=== PATIENT | male | born 1950 | race Caucasian/White ===

== ENCOUNTER 2022-06-14 10:13 | Outpatient (CLI) | payer OTHER, SELFPAY ==
--- OUTSIDE RECORDS SUMMARY | 2022-06-14 08:36 | XMS_ITS | Clinical Summary ---
:1950 Author Organization [facility] Address [address] [place] [address] Care Team Providers Name Role Phone Juan Jose Adams MD Unavailable [phone] Clinic, [facility] Primary Care Provide r Allergies No known active allergies Medications Medication Sig Dispensed Refills Start Date End Date Status Rivaroxaban (XARELTO Take 20 mg by 0 Active PO) mouth every evening triamcinolone (KENALOG) Apply topically 2 0 Active 0.1 % cream times daily atorvastatin (LIPITOR) Take 1 tablet (20 90 tablet 3 2 Active 20 MG mg) by mouth At tabletIndications: Bedtime Hyperlipidemia LDL goal <70 amoxicillin (AMOXIL) (TAKE 4 CAPSULES 4 capsule 3 09/08/2021 Active 500 MG (2000MG) BY MOUT capsuleIndications: 1HR PRIOR TO Prophylactic antibiotic DENTAL PROCEDURE.) Active Problems Problem Noted Date Atrial fibrillation 05/11/2018 Carotid stenosis, left 01/28/2017 Family History Medical History Relation Comments Hypertension Father Breast Cancer Mother Colon Cancer Mother Cerebrovascular Disease Paternal Grandfather Other Cancer Paternal Grandmother Relation Status Comments Father Mother Paternal Grandfather Paternal Grandmother Social History Tobacco Use Types Packs/Day Years Used Date Smoking Tobacco: Former Cigarettes Quit : 08/08/1990 Pipe Smokeless Tobacco: Never Tobacco Cessation: Counseling Given: Yes Alcohol Use Standard Drinks/Week Comments Yes 0 (1 standard drink = 0.6 oz pure alcoho l) 5 / week Sex Assigned at Date Recorded 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 Last Filed Vital Signs Vital Sign Reading Time Taken Comments Blood Pressure 126/64 09/01/2021 9:31 AM WEATHERSEAL TECHNICIAN Pulse 67 09/01/2021 9:31 AM WEATHERSEAL TECHNICIAN Temperature 36.7 ??C (98.1 ??F) 02/16/2017 9:21 AM CDT Respiratory Rate 16 09/01/2021 9:31 AM WEATHERSEAL TECHNICIAN Oxygen Saturation 95% 09/01/2021 9:31 AM WEATHERSEAL TECHNICIAN Inhaled Oxygen Concentration - - Weight 122.5 kg (270 lb) 09/01/2021 9:31 AM WEATHERSEAL TECHNICIAN Height 188 cm (6' 2) 09/01/2021 9:31 AM WEATHERSEAL TECHNICIAN Body Mass Index 34.67 09/01/2021 9:31 AM WEATHERSEAL TECHNICIAN Plan of Treatment Health Maintenance Due Date Last Done Comments ADVANCE CARE PLANNING 1950 ANNUAL REVIEW OF HM ORDERS 1948 CT COLONOGRAPHY 1950 FIT-DNA (Cologuard) 1950 FIT 1950 FLEX SIG 1950 HEPATITIS B IMMUNIZATION (1 1950 of 3 - 3-dose series) HEPATITIS C SCREENING 1966 AORTIC ANEURYSM SCREENING 2013 (SYSTEM ASSIGNED) FALL RISK ASSESSMENT 2013 MEDICARE ANNUAL WELLNESS 2013 10/14/2006, 04/16/2005, VISIT 10/01/1997 COVID-19 Vaccine (3 - 12/19/2020 10/24/2020, 10/03/2020 Booster for Pfizer series) PHQ-2 (once per calendar 08/08/2021 year) LIPID 01/28/2022 01/28/2017 INFLUENZA VACCINE (#1) 2022 07/09/2021, 07/09/2021, 06/30/2020, Additional history exists COLONOSCOPY 11/09/2027 11/08/2017 COLORECTAL CANCER SCREENING 11/09/2027 DTAP/TDAP/TD IMMUNIZATION 07/09/2031 07/09/2021, 11/20/2010 , (4 - Td or Tdap) 04/16/2005, Additional history exists IPV IMMUNIZATION Aged Out 08/19/1998 No longer eligi ble based on patient 's age to complete this topic Pneumococcal Vaccine: 65+ Completed 08/08/2017, 05/14/2015 , Years 10/09/2014 ZOSTER IMMUNIZATION Completed 04/13/2019, 02/02/2019, 01/19/2013 MENINGITIS IMMUNIZATION Aged Out No longe r eligible based on patient 's age to complete this topic Medical Devices Implanted Type Area Welder Helper Device Shelf Model / Identifier Expiration Serial / Lot Date Graft Hemashield [id number] Graft Left: [employer] 11/05/2020 [id number] / Implanted: Qty: 1 on 01/28/2017 by Wayne Carlson MD at [facility] [id number] / [id number] Insurance Payer Benefit Plan / Subscriber ID Effective Phone Address T ype Group Dates [facility] [id number] 2018-Pres [phone] [address] O MEDICARE ADVANTAGE ent [address] [place] [address] none (Work) [phone] Care Teams Analog Ic Design Engineer Relationship Specialty Start Date End Date Clinic, [facility] PCP - General 08/19/[address] [address] Juan Jose Adams, Assigned Heart and Vascular 09/07/20 Provider [address] [place] [address]
--- OUTSIDE RECORDS SUMMARY | 2022-06-14 08:36 | XMS_ITS | Encounter Summary ---
:1950 Author Organization [facility] Address [address] [place] [address]. [place] [address] Care Team Providers Name Role Phone Juan Jose Adams MD Unavailable [phone] Clinic, [facility] Primary Care Provide r Reason for Visit Reason Comments Medication Refill amoxicillin (AMOXIL) 500 MG capsule Encounter Details Date Type Department Care Team Description 09/08/2021 Refill [facility] Juan Jose Adams [facility] cation Refill Vascular Clinic Mauricio Raymond MD (amoxicillin (AMOXIL) 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 documented as of this encounter Miscellaneous Notes Telephone Encounter - Najma Singletary RN - 09/08/2021 10:22 AM CST amoxicillin (AMOXIL) 500 MG capsule Last Written Prescription Date: 06/09/20 Last Fill Quantity: 4, # refills: 3 Last office visit: 09/01/21 Unable to fill per [facility] protocol. Medication and pharmacy loaded. Najma Singletary RN BSN [facility] [phone] ULTING SOLUTION DIRECTOR documented in this encounter Plan of Treatment Not on filedocumented as of this encounter Visit Diagnoses Diagnosis Prophylactic antibiotic Encounter for long-term (current) use of antibiotics documented in this encounter Care Teams Digital Account Director Relationship Specialty Start Date End Date Clinic, [facility] PCP - General 08/19/[address] [address] Juan Jose Adams, Assigned Heart and Vascular 09/07/20 Provider [address] [place] [address] documented as of this encounter
--- OUTSIDE RECORDS SUMMARY | 2022-06-14 08:37 | XMS_ITS | Encounter Summary ---
:1950 Author Organization [facility] Address [address] [place] [address]. [place] [address] Care Team Providers Name Role Phone Phil Reyesolas Doris Primary Care Provider Reason for Referral Diagnostic Imaging Ultrasound (Routine) - Closed Specialty Diagnoses / Procedures Referred By Contact Refer red To Contact Radiology. Diagnoses Carotid artery stenosis History of carotid endarterectomy Wayne Bennett, Ultrasound Procedures US Carotid Bilateral [address] [place] [phone] Fax: Referral ID Status Reason Start Date Expiration Date Visits Requ ested Visits Authorized [id number] Closed 03/08/2019 03/07/2020 1 1 Encounter Details Date Type Department Care Team Description 03/08/2019 [facility] Wayne Bennett Carotid artery stenosis (Primary Dx); Vascular Clinic Mauricio Paiz MD History of carotid endarterectomy 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 1. Less than 50% diameter stenosis of th e right ICA relative to the distal ICA diameter, unchanged. 2. 50-69% diameter stenosis of the left ICA relative to the distal ICA diameter, unchanged. SARA SMALL, Narrative 06/01/2019 10:57 AM CDT BILATERAL CAROTID ULTRASOUND ?? 05/31/2019 12:49 PM HISTORY: ??History of left carotid endar terectomy on 01/28/2017. Carotid artery stenosis. COMPARISON: 05/11/2018 RIGHT CAROTID FINDINGS: ??Minimal plaque at the carotid bulb. Right ICA PSV: ??110 ??cm/sec. Right ICA EDV: ??24 cm/sec. Right ICA/CCA PSV Ratio: ??0.8 ?? These indicate less than 50% diameter st enosis of the right ICA. ?? Right Vertebral: Antegrade flow. Right ECA: Antegrade flow. LEFT CAROTID FINDINGS: ??Plaque in the i nternal carotid artery. Left ICA PSV: ??167 ??cm/sec. Left ICA EDV: ??26 cm/sec. Left ICA/CCA PSV Ratio: ??0.8 ?? These indicate 50-69% diameter stenosis of the left ICA. ?? Left Vertebral: Antegrade flow. Left ECA: Antegrade flow. Causes of Decreased Accuracy: ?? None. Procedure Note Sara Small DO - 2018 BILATERAL CAROTID ULTRASOUND 05/31/2019 12:49 PM HISTORY: History of left carotid endarte rectomy on 01/28/2017. Carotid artery stenosis. COMPARISON: 05/11/2018 RIGHT CAROTID FINDINGS: Minimal plaque a t the carotid bulb. Right ICA PSV: 110 cm/sec. Right ICA EDV: 24 cm/sec. Right ICA/CCA PSV Ratio: 0.8 These indicate less than 50% diameter st enosis of the right ICA. Right Vertebral: Antegrade flow. Right ECA: Antegrade flow. LEFT CAROTID FINDINGS: Plaque in the int ernal carotid artery. Left ICA PSV: 167 cm/sec. Left ICA EDV: 26 cm/sec. Left ICA/CCA PSV Ratio: 0.8 These indicate 50-69% diameter stenosis of the left ICA. Left Vertebral: Antegrade flow. Left ECA: Antegrade flow. Causes of Decreased Accuracy: None. IMPRESSION: 1. Less than 50% diameter stenosis of th e right ICA relative to the distal ICA diameter, unchanged. 2. 50-69% diameter stenosis of the left ICA relative to the distal ICA diameter, unchanged. SARA SMALL DO Wayne Bennett MD G ORDERABLES documented in this encounter Visit Diagnoses Diagnosis Carotid artery stenosis - Primary Occlusion and stenosis of carotid artery without mention of cerebral infarction History of carotid endarterectomy Other postprocedural status Carotid artery stenosis Occlusion and stenosis of carotid artery without mention of cerebral infarction History of carotid endarterectomy Other postprocedural status documented in this encounter Care Teams Card Assembler Relationship Specialty Start Date End Date Supa Reyes PCP - General Family Practice 10/21/16 08/18/[address] [address] documented as of this encounter
--- OUTSIDE RECORDS SUMMARY | 2022-06-14 08:37 | XMS_ITS | Encounter Summary ---
:1950 Author Organization [facility] Address [address] [place] [address]. [place] [address] Care Team Providers Name Role Phone EricSupa issa Doris Primary Care Provider Reason for Referral Diagnostic Imaging Ultrasound - Closed Specialty Diagnoses / Procedures Referred By Contact Refer red To Contact Radiology. Diagnoses Carotid artery stenosis Wyane Bennett MD Rh Ultrasound Procedures US Carotid Bilateral [address] [place] [address] [place] [address] Phone: Fax: Referral ID Status Reason Start Date Expiration Date Visits Requ ested Visits Authorized [id number] Closed 05/08/2018 05/08/2019 1 1 RNED GOODS REPAIRER Encounter Details Date Type Department Care Team Description 08/11/2017 Orders Only [facility] Wayne Bennett Carotid artery Vascular Clinic Mauricio Paiz MD stenosis (Primary Dx) 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 1. Less than 50% stenosis of the right i nternal carotid artery relative to the normal diameter internal carotid artery. 2. 50-69% stenosis of the left internal carotid artery relative to the normal diameter internal carotid artery. 3. Postoperative changes from left carot id endarterectomy. Degree of stenosis measured relative to the diameter of the normal internal carotid artery per NASCET or NA SCET type criteria <50% stenosis -ICA PSV <125 cm/sec and plaque or intim al thickening is visible sonographically. -ICA/CCA PSV ratio <2.0 and ICA EDV < 40 cm/sec 50-69% stenosis -ICA PSV 125-230 cm/sec and plaque visib le sonographically -ICA/CCA PSC ratio 2.0-4.0 and ICA EDV o f 40-100 cm/sec 70% or greater stenosis -ICA PSV is >230 cm/sec and visible plaq ue and luminal narrowing are seen at grayscale and color doppler -ICA/CCA PSV ratio >4 and ICA EDV >100 c m/sec TITUS THOMAS MD Narrative 05/11/2018 1:25 PM CDT PROCEDURE: Bilateral carotid doppler ultrasound DATE OF PROCEDURE: 05/11/2018 1:11 PM CLINICAL HISTORY/INDICATION: ?? 68-year-old male status post left caroti d endarterectomy presents for follow-up. COMPARISON: 08/10/2017, 10/27/2016 TECHNIQUE: Grayscale, color-flow and spectral wavef orm analysis with velocities were performed of the bilateral carotid arteries. FINDINGS: Right: Plaque: Minimal plaque about the bifurca tion. Right ICA Proximal PSV/EDV: ??61/11 ??cm /sec. Right ICA Mid PSV/EDV: ??71/19 cm/sec. Right ICA Dist PSV/EDV: ??83/26 cm/sec. Right ICA/CCA PSV Ratio: ??0.9 ?? These indicate less than 50% diameter st enosis of the right ICA. ?? Right Vertebral: antegrade flow Right ECA: antegrade flow Left: Plaque: Soft plaque versus intimal hyper plasia within the bulb and proximal internal carotid artery Left ICA Proximal PSV/EDV: 209/28 ??cm/s ec. Left ICA Mid PSV/EDV: ??75/18 cm/sec. Left ICA Dist PSV/EDV: 98/24 cm/sec. Left ICA/CCA PSV Ratio: ??1.9 ?? These indicate 50-69% diameter stenosis of the left ICA. ?? Left Vertebral: antegrade flow Left ECA: antegrade flow Procedure Note Titus Thomas MD - 05/11/2018For matting of this note might be different from the original. PROCEDURE: Bilateral carotid doppler ultrasound DATE OF PROCEDURE: 05/11/2018 1:11 PM CLINICAL HISTORY/INDICATION: 68-year-old male status post left caroti d endarterectomy presents for follow-up. COMPARISON: 08/10/2017, 10/27/2016 TECHNIQUE: Grayscale, color-flow and spectral wavef orm analysis with velocities were performed of the bilateral carotid arteries. FINDINGS: Right: Plaque: Minimal plaque about the bifurca tion. Right ICA Proximal PSV/EDV: 61/11 cm/sec . Right ICA Mid PSV/EDV: 71/19 cm/sec. Right ICA Dist PSV/EDV: 83/26 cm/sec. Right ICA/CCA PSV Ratio: 0.9 These indicate less than 50% diameter st enosis of the right ICA. Right Vertebral: antegrade flow Right ECA: antegrade flow Left: Plaque: Soft plaque versus intimal hyper plasia within the bulb and proximal internal carotid artery Left ICA Proximal PSV/EDV: 209/28 cm/sec . Left ICA Mid PSV/EDV: 75/18 cm/sec. Left ICA Dist PSV/EDV: 98/24 cm/sec. Left ICA/CCA PSV Ratio: 1.9 These indicate 50-69% diameter stenosis of the left ICA. Left Vertebral: antegrade flow Left ECA: antegrade flow IMPRESSION: 1. Less than 50% stenosis of the right i nternal carotid artery relative to the normal diameter internal carotid artery. 2. 50-69% stenosis of the left internal carotid artery relative to the normal diameter internal carotid artery. 3. Postoperative changes from left carot id endarterectomy. Degree of stenosis measured relative to the diameter of the normal internal carotid artery per NASCET or NA SCET type criteria <50% stenosis -ICA PSV <125 cm/sec and plaque or intim al thickening is visible sonographically. -ICA/CCA PSV ratio <2.0 and ICA EDV < 40 cm/sec 50-69% stenosis -ICA PSV 125-230 cm/sec and plaque visib le sonographically -ICA/CCA PSC ratio 2.0-4.0 and ICA EDV o f 40-100 cm/sec 70% or greater stenosis -ICA PSV is >230 cm/sec and visible plaq ue and luminal narrowing are seen at grayscale and color doppler -ICA/CCA PSV ratio >4 and ICA EDV >100 c m/sec TITUS THOMAS MD Wayne Bennett MD IMG US ORDERABLES documented in this encounter Visit Diagnoses Diagnosis Carotid artery stenosis - Primary Occlusion and stenosis of carotid artery without mention of cerebral infarction Carotid artery stenosis Occlusion and stenosis of carotid artery without mention of cerebral infarction documented in this encounter Care Teams Professor Of Physics Relationship Specialty Start Date End Date Supa Reyes PCP - General Family Practice 10/21/16 08/18/21 [place] [id number] documented as of this encounter
--- OUTSIDE RECORDS SUMMARY | 2022-06-14 08:37 | XMS_ITS | Encounter Summary ---
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 documented as of this encounter Plan of Treatment Not on filedocumented as of this encounter Visit Diagnoses Not on filedocumented in this encounter Care Teams Windows Consultant Relationship Specialty Start Date End Date Supa Reyes PCP - General Family Practice 10/21/16 08/18/[address] [address] Wayne Bennett, Assigned Heart and 05/30/20 09/06/20 Vascular Provider [address] [place] [address] documented as of this encounter
--- OUTSIDE RECORDS SUMMARY | 2022-06-14 08:37 | XMS_ITS | Encounter Summary ---
:1950 Author Organization [facility] Address [address] [place] [address]. [place] [address] Care Team Providers Name Role Phone Supa Reyes Primary Care Provider Reason for Visit Reason Comments RECHECK bilat carotid ---- 9 month F /U Encounter Details Date Type Department Care Team Description 05/11/2018 Office Visit [facility] Wayne Bennett Carotid stenosis, asymptomatic, left (Primary Dx); Surgery Clinic MD [place]cho Persistent atrial fibrillation (H) 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 documented as of this encounter Last Filed Vital Signs Vital Sign Reading Time Taken Comments Blood Pressure 124/88 05/11/2018 1:08 PM CDT Pulse 59 05/11/2018 1:08 PM CDT Temperature - - Respiratory Rate 16 05/11/2018 1:08 PM CDT Oxygen Saturation 98% 05/11/2018 1:08 PM CDT Inhaled Oxygen Concentration - - Weight 117.5 kg (259 lb) 05/11/2018 1:08 PM CDT Height 188 cm (6' 2) 05/11/2018 1:08 PM CDT Body Mass Index 33.25 05/11/2018 1:08 PM CDT documented in this encounter Progress Notes Wayne Bennett MD - 05/11/2018 1:30 PM CDT 68 y/o male s/p left carotid endarterectomy 01/22--no symptoms since last check. Motor/sensory intactCr. N 2-12 intact Carotids 11/09 no bruits Ultrasound shows 50% stenosis on the left peak velocity 203cm/sec. No indication for intervention at this point F/U ultrasound in one year. Discussed. documented in this encounter Plan of Treatment Not on filedocumented as of this encounter Visit Diagnoses Diagnosis Carotid stenosis, asymptomatic, left - P rimary Persistent atrial fibrillation (H) Atrial fibrillation documented in this encounter Care Teams Fish Agent Relationship Specialty Start Date End Date Supa Reyes PCP - General Family Practice 10/21/16 08/18/21 [place] [address] documented as of this encounter
--- OUTSIDE RECORDS SUMMARY | 2022-06-14 08:37 | XMS_ITS | Encounter Summary ---
:1950 Author Organization [facility] Address [address] [place] [address]. [place] [address] Care Team Providers Name Role Phone Supa Reyes Primary Care Provider Encounter Details Date Type Department Care Team Description 04/18/2019 Orders Only [facility] Wayne Bennett ctic antibiotic Vascular Clinic Mauricio Paiz MD (Primary Dx) 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
--- OUTSIDE RECORDS SUMMARY | 2022-06-14 08:37 | XMS_ITS | Encounter Summary ---
:1950 Author Organization [facility] Address [address] [place] [address]. [place] [address] Care Team Providers Name Role Phone Supa Reyes Primary Care Provider Reason for Visit Reason Onset Date Comments Medication Request 03/18/2017 Encounter Details Date Type Department Care Team Description 03/18/2017 Telephone [facility] Wayne Bennett on Request Vascular Clinic Mauricio Paiz MD 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 Amoxicillin was ordered per protocol. Pt was notified. Myriam Pedroza RN, BSN. documented in this encounter Plan of Treatment Not on filedocumented as of this encounter Visit Diagnoses Diagnosis History of carotid endarterectomy - Prim zachariah Other postprocedural status documented in this encounter Care Teams Nitrator Operator Relationship Specialty Start Date End Date Supa Reyes PCP - General Family Practice 10/21/16 08/18/21 [place] [id number] documented as of this encounter
--- OUTSIDE RECORDS SUMMARY | 2022-06-14 08:37 | XMS_ITS | Encounter Summary ---
:1950 Author Organization [facility] Address [address] [place] [address]. [place] [address] Care Team Providers Name Role Phone Supa Reyse Primary Care Provider Reason for Visit Reason Onset Date Comments Medication Request 03/09/2017 Encounter Details Date Type Department Care Team Description 03/09/2017 Telephone [facility] Wayne Bennett on Request Vascular Clinic Mauricio Paiz MD 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 Amoxicillin was ordered per facility protocol. Pt's was notified. Myriam Pedroza RN, BSN. documented in this encounter Plan of Treatment Not on filedocumented as of this encounter Visit Diagnoses Diagnosis History of carotid endarterectomy - Prim zachariah Other postprocedural status documented in this encounter Care Teams Solderer Assembly Repair Relationship Specialty Start Date End Date Supa Reyes PCP - General Family Practice 10/21/16 08/18/21 [place] [id number] documented as of this encounter
--- OUTSIDE RECORDS SUMMARY | 2022-06-14 08:37 | XMS_ITS | Encounter Summary ---
:1950 Author Organization [facility] Address [address] [place] [address] Care Team Providers Name Role Phone Eric, Supa Doris Primary Care Provider Wayne Bennett MD Unavailable Juan Jose Adams MD Unavailable [phone] Reason for Referral Consultation (Routine) - Closed Specialty Diagnoses / Procedures Referred By Contact Refer red To Contact Diagnoses History of carotid endarterectomy Juan Jose Adams MD [address] [place] [address] Referral ID Status Reason Start Date Expiration Date Visits Requ ested Visits Authorized [id number] Closed 04/01/2021 04/01/2022 1 1 Diagnostic Imaging Ultrasound (Routine) - Closed Specialty Diagnoses / Procedures Referred By Contact Refer red To Contact Diagnoses History of carotid endarterectomy Juan Jose Adams, Procedures US Carotid Bilateral US Carotid Bilateral [address] [place] [address] Referral ID Status Reason Start Date Expiration Date Visits Requ ested Visits Authorized [id number] Closed 09/02/2020 09/02/2021 1 1 Reason for Visit Reason Comments Consult Carotid stenosis (Routine) - Closed Specialty Diagnoses / Procedures Referred By Contact Refer red To Contact Diagnoses History of carotid endarterectomy Stenosis of carotid artery, unspecified laterality Vascular Center [address] [place] [address] Referral ID Status Reason Start Date Expiration Date Visits Requ ested Visits Authorized [id number] Closed 08/05/2020 08/05/2021 1 1 Encounter Details Date Type Department Care Team Description 09/02/2020 Office Visit [facility] Juan Jose Adams Alycia tid stenosis, left (Primary Dx); Surgery Clinic MD [place] History of left carotid endarterectomy [place] [address] [place] [address] [place] [phone] (Wo rk) [address] [phone] Social History Tobacco Use Types Packs/Day Years Used Date Smoking Tobacco: Former Cigarettes Quit : 08/08/1990 Pipe Smokeless Tobacco: Never Tobacco Cessation: Counseling Given: Yes Alcohol Use Standard Drinks/Week Comments Yes 0 (1 standard drink = 0.6 oz pure alcoho l) 5 / week Sex Assigned at Date Recorded Male 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 documented as of this encounter Last Filed Vital Signs Vital Sign Reading Time Taken Comments Blood Pressure 122/72 09/02/2020 8:58 AM LIBRARY CATALOGING TECHNICIAN Pulse 72 09/02/2020 8:58 AM LIBRARY CATALOGING TECHNICIAN Temperature - - Respiratory Rate 16 09/02/2020 8:58 AM LIBRARY CATALOGING TECHNICIAN Oxygen Saturation 97% 09/02/2020 8:58 AM LIBRARY CATALOGING TECHNICIAN Inhaled Oxygen Concentration - - Weight 122.5 kg (270 lb) 09/02/2020 8:58 AM LIBRARY CATALOGING TECHNICIAN Height 188 cm (6' 2) 09/02/2020 8:58 AM LIBRARY CATALOGING TECHNICIAN Body Mass Index 34.67 09/02/2020 8:58 AM LIBRARY CATALOGING TECHNICIAN documented in this encounter Progress Notes Najma Das RN - 09/02/2020 9:00 AM CST *FORMER HLS PATIENT* US completed 08/28/2020. History of left carotid endarterectomy on 01/28/17; 1 year follow up to 05/31/[address] Bennett ARY CATALOGING TECHNICIAN Juan Jose Adams MD - 09/02/2020 9:00 AM CST Tyler Muro is a 70 year old male who is presenting at the current time to discuss his diagnosi(es)of History of carotid endarterectomy . HPI: Tyler Muro is a 70 year old male w/ a history of carotid artery ds who is S/P left carotid endarterectomy on 01/28/17; He is presenting today for 1 year follow up to 05/31/19 appointment with , who has since retired. He recently had a duplex revealing the CEA to be patent wihtout clinically significant stenosis. Discrepant findings were noted in the left internal carotid artery with peak systolic velocity suggesting 50-69% stenosis. However, ratio and direct visualization suggests less than 50% stenosis. His atherosclerotic risk factors of htn and hyperlipidemia are well managed. His LD- C was last noted to be 35. His LDL-P is < 1000. His BP is well controlled. Review Of Systems Skin: negative Eyes: negative Ears/Nose/Throat: negative Respiratory: No shortness of breath, dyspnea on exertion, cough, or hemoptysis Cardiovascular: negative Gastrointestinal: negative Genitourinary: negative Musculoskeletal: negative Neurologic: negative Psychiatric: negative Hematologic/Lymphatic/Immunologic: negative Endocrine: negative PAST MEDICAL HISTORY: Past Medical History: Diagnosis Date ??? Arrhythmia ??? Arthritis osteoarthritis of knee and thumb ??? Hyperplastic colon polyp ??? Hypertension ??? Irregular heart beat atrial fibrillation ??? Urinary obstruction due to nodular prostate PAST SURGICAL HISTORY: Past Surgical History: Procedure Laterality Date ??? ENDARTERECTOMY CAROTID Left 01/28/2017 Procedure: ENDARTERECTOMY CAROTID; LEFT CAROTID ENDARTERECTOMY WITH ELECTROENCEPHALOGRAM; Surgeon: Wayne Bennett MD; Location: OR ??? ENT SURGERY tonsillectomy ??? H OR CATH ABLATION NON-CARDIAC ENDOVASCULAR OPNP ??? HERNIA REPAIR, INGUINAL RT/LT ??? open retopublic prostatectomy ??? SOFT TISSUE SURGERY ??? VASECTOMY CURRENT MEDICATIONS: Current Outpatient Medications Medication Sig Dispense Refill ??? amoxicillin (AMOXIL) 500 MG capsule Take 1 capsule (500 mg) by mouth once as needed (take 4 capsules (2000mg) by mouth one hour prior to dental procedure.) 4 capsule 3 ??? ATORVASTATIN CALCIUM PO Take 20 mg by mouth At Bedtime ??? Rivaroxaban (XARELTO PO) Take 20 mg by mouth every evening ??? triamcinolone (KENALOG) 0.1 % cream Apply topically 2 times daily ??? aspirin EC 81 MG EC tablet Take 1 tablet (81 mg) by mouth daily (Patient not taking: Reported on05/31/2019) ??? LISINOPRIL PO Take 5 mg by mouth every evening Reported on 12/01/2016 ??? SOTALOL HCL PO Take 80 mg by mouth 2 times daily ALLERGIES: No Known Allergies SOCIAL HISTORY: Social History Socioeconomic History ??? Marital status: Spouse name: Not on file ??? Number of children: Not on file ??? Years of education: Not on file ??? Highest education level: Not on file Occupational History ??? Not on file Social Needs ??? Financial resource strain: Not on file ??? Food insecurity Worry: Not on file Inability: Not on file ??? Transportation needs Medical: Not on file Non-medical: Not on file Tobacco Use ??? Smoking status: Former Smoker Types: Cigarettes, Pipe Quit date: 08/08/1990 Years since quittin.0 ??? Smokeless tobacco: Never Used Substance and Sexual Activity ??? Alcohol use: Yes Comment: 5 / week ??? Drug use: No ??? Sexual activity: Not on file Lifestyle ??? Physical activity Days per week: Not on file Minutes per session: Not on file ??? Stress: Not on file Relationships ??? Social connections Talks on phone: Not on file Gets together: Not on file Attends orthodoxy service: Not on file Active member of club or organization: Not on file Attends meetings of clubs or organizations: Not on file Relationship status: Not on file ??? Intimate partner violence Fear of current or ex partner: Not on file Emotionally abused: Not on file Physically abused: Not on file Forced sexual activity: Not on file Other Topics Concern ??? Parent/sibling w/ CABG, ID or angioplasty before 65F 55M? Not Asked Social History Narrative ??? Not on file FAMILY HISTORY: Family History Problem Relation Age of Onset ??? Breast Cancer Mother ??? Colon Cancer Mother ??? Hypertension Father ??? Other Cancer Paternal Grandmother ??? Cerebrovascular Disease Paternal Grandfather Physical exam Reveals: O/P: WNL HEENT: WNL NECK: No JVD, thyromegaly, or lymphadenopathy HEART: RRR, no murmurs, gallops, or rubs LUNGS: CTA bilaterally without rales, wheezes, or rhonchi GI: NABS, nondistended, nontender, soft EXT:without cyanosis, clubbing, or edema NEURO: nonfocal : no flank tenderness BILATERAL CAROTID ULTRASOUND 08/28/2020 10:41 AM ?? HISTORY: History of left carotid endarterectomy on 01/28/2017. History of carotid endarterectomy. Stenosis of carotid artery, unspecified laterality. ?? COMPARISON: May 31, 2019 ?? RIGHT CAROTID FINDINGS: There is minimal atherosclerotic plaque at the carotid bifurcation and proximal internal carotid artery. Right ICA PSV: 91 cm/sec. Right ICA EDV: 29 cm/sec. Right ICA/CCA PSV Ratio: 0.89 These indicate less than 50% diameter stenosis of the right ICA. Right Vertebral: Antegrade flow. Right ECA: Antegrade flow. ?? LEFT CAROTID FINDINGS: There is minimal atherosclerotic plaque at the carotid bifurcation and proximal internal carotid artery. Left ICA PSV: 179 cm/sec. Left ICA EDV: 33 cm/sec. Left ICA/CCA PSV Ratio: 1.5 These indicate less than 50% diameter stenosis of the left ICA. Left Vertebral: Antegrade flow. Left ECA: Antegrade flow. ?? Causes of Decreased Accuracy: Discrepant findings in the left internal carotid artery with peak systolic velocity suggesting 50-69% stenosis. However, ratio and direct visualization suggests less than 50% stenosis. ?? IMPRESSION: 1. Less than 50% diameter stenosis of the right ICA relative to the distal ICA diameter. 2. Less than 50% diameter stenosis of the left ICA relative to the distal ICA diameter. However, discrepant findings in that peak systolic velocity suggests 50-69% stenosis. Direct visualization and ratios suggest less than 50% stenosis. ?? NICOLE WILD MD CTA ANGIOGRAM NECK 11/01/2016 9:23 AM ?? HISTORY: Left carotid stenosis. Occlusion and stenosis of unspecified carotid artery. ?? TECHNIQUE: Axial images were obtained through the neck without and with intravenous contrast. 70 mL of Isovue-370 was given. Multiplanar reconstructions were performed. 3-D reconstructions off a remote workstation for CT angiography were also acquired. Carotid stenoses were evaluated by comparing the caliber of the proximal internal carotid artery to the caliber of the distal internal carotid artery. Radiation dose for this scan was reduced using automated exposure control, adjustment of the mA and/or kV according to patient size, or iterative reconstruction technique.. ?? FINDINGS: ?? Brachiocephalic vessels: Normal. ?? Right carotid system: Minimal plaque. No stenosis. ?? Left carotid system: Moderate plaque is present resulting in 70% short segment stenosis of the proximal right internal carotid artery at its origin. This is best appreciated on the coronal reformatted images which show the maximum degree of stenosis. There is also slightly diminished caliber of the distal internal carotid artery due to the high-grade stenosis. ?? Right vertebral artery: Normal. ?? Left vertebral artery: Normal. ?? Other findings: None. ?? IMPRESSION: 70% short segment stenosis at the origin of the left internal carotid artery. ?? ARY BUI MD A/P: (Z98.890) History of left carotid endarterectomy 01/28/2017 Comment: doing well. Excellent risk factor control. CEA site patent w/o restenosis. Discrepant velocities and ratios. Repeat imaging in one year; if true stenosis > 70% occurring by duplex, check H/N CTA at that time to confirm or refute progression of disease. Plan: US Carotid Bilateral Greater than one half the 30 minutes total spent on the pt's visit were spent providing education and counselling to the patient regarding the above matters. \ ARY CATALOGING TECHNICIAN documented in this encounter Miscellaneous Notes Addendum Note - Najma Das RN - 09/02/2020 9:00 AM LIBRARY CATALOGING TECHNICIAN Addended by: NAJMA DAS on: 04/01/2021 08:31 AM Modules accepted: Orders documented in this encounter Plan of Treatment Scheduled Referrals Name Type Priority Associated Diagnoses Order S chedule Follow-Up with Referral Routine History of left carotid Ex pected: 09/02/2021 Vascular Medicine endarterectomy 7 (Approximate), Expires: 2021 documented as of this encounter Results US Carotid Bilateral (08/19/2021 10:17 AM LIBRARY CATALOGING TECHNICIAN) Anatomical Region Laterality Modality Vascular, Head Ultrasound Specimen (Source) Anatomical Location Collection Method / Collectio n Time Received Time / Laterality Volume Impressions 08/19/2021 11:02 AM LIBRARY CATALOGING TECHNICIAN IMPRESSION: ?? 1. Less than 50% diameter stenosis of th e right ICA relative to the distal ICA diameter. 2. Less than 50% diameter stenosis of th e left ICA relative to the distal ICA diameter. However, discrepant findings persist and unchanged from previous exam as peak sys tolic velocities suggests 50-69% stenosis, though direct visualiza tion and ratios suggest less than 50% stenosis. NICOLE WILD MD Narrative 08/19/2021 11:02 AM LIBRARY CATALOGING TECHNICIAN BILATERAL CAROTID ULTRASOUND ?? 08/19/2021 10:17 AM HISTORY: ??Left CEA 01/28/2017. Check for restenosis. Note last carotid duplex had discrepant LICA velocities an d ratio. Please comment upon continued discrepancy, or true progressi on beyond 70% stenosis. History of carotid endarterectomy; Carot id stenosis, left. COMPARISON: August 28, 2020 RIGHT CAROTID FINDINGS: ??There is mild atherosclerotic plaque of the carotid bifurcation and proximal interna l carotid artery. Right ICA PSV: ??118 cm/sec. Right ICA EDV: ??25 cm/sec. Right ICA/CCA PSV Ratio: ??0.91 ?? These indicate less than 50% diameter st enosis of the right ICA. ?? Right Vertebral: Antegrade flow. Right ECA: Antegrade flow. LEFT CAROTID FINDINGS: ??There is minima l to mild atherosclerotic plaque at the carotid bifurcation and pr oximal internal carotid artery. Left ICA PSV: ??173 cm/sec. Left ICA EDV: ??38 cm/sec. Left ICA/CCA PSV Ratio: ??1.12 ?? These indicate less than 50% diameter st enosis of the left ICA. ?? Left Vertebral: Antegrade flow. Left ECA: Antegrade flow. Causes of Decreased Accuracy: ??Again no krishna is discrepancy in the left internal carotid artery with peak systol ic velocities suggestive of 50-69% stenosis, though direct visualiza tion and ratio suggests less than 50% stenosis. Procedure Note Nicole Wild MD - 08/19/2021 BILATERAL CAROTID ULTRASOUND 08/19/2021 1 0:17 AM HISTORY: Left CEA 01/28/2017. Check for r estenosis. Note last carotid duplex had discrepant LICA velocities an d ratio. Please comment upon continued discrepancy, or true progressi on beyond 70% stenosis. History of carotid endarterectomy; Carot id stenosis, left. COMPARISON: August 28, 2020 RIGHT CAROTID FINDINGS: There is mild at herosclerotic plaque of the carotid bifurcation and proximal interna l carotid artery. Right ICA PSV: 118 cm/sec. Right ICA EDV: 25 cm/sec. Right ICA/CCA PSV Ratio: 0.91 These indicate less than 50% diameter st enosis of the right ICA. Right Vertebral: Antegrade flow. Right ECA: Antegrade flow. LEFT CAROTID FINDINGS: There is minimal to mild atherosclerotic plaque at the carotid bifurcation and pr oximal internal carotid artery. Left ICA PSV: 173 cm/sec. Left ICA EDV: 38 cm/sec. Left ICA/CCA PSV Ratio: 1.12 These indicate less than 50% diameter st enosis of the left ICA. Left Vertebral: Antegrade flow. Left ECA: Antegrade flow. Causes of Decreased Accuracy: Again note d is discrepancy in the left internal carotid artery with peak systol ic velocities suggestive of 50-69% stenosis, though direct visualiza tion and ratio suggests less than 50% stenosis. IMPRESSION: 1. Less than 50% diameter stenosis of th e right ICA relative to the distal ICA diameter. 2. Less than 50% diameter stenosis of th e left ICA relative to the distal ICA diameter. However, discrepant findings persist and unchanged from previous exam as peak sys tolic velocities suggests 50-69% stenosis, though direct visualiza tion and ratios suggest less than 50% stenosis. NICOLE WILD MD Juan Jose Adams MD IMG US ORDERABLES documented in this encounter Visit Diagnoses Diagnosis Carotid stenosis, left - Primary Occlusion and stenosis of carotid artery without mention of cerebral infarction History of left carotid endarterectomy Other postprocedural status History of left carotid endarterectomy Other postprocedural status Carotid stenosis, left Occlusion and stenosis of carotid artery without mention of cerebral infarction documented in this encounter Care Teams Housing Assistant Relationship Specialty Start Date End Date Supa Reyes PCP - General Family Practice 10/21/16 08/18/[address] [address] Wayne Bennett MD Assigned Heart and 05/30/20 09/06/20 [address] Vascular Provider [place] [id number] Juan Jose Adams Assigned Heart and 09/07/20 MD [place] Vascular Provider [address] [place] [address] documented as of this encounter
--- OUTSIDE RECORDS SUMMARY | 2022-06-14 08:37 | XMS_ITS | Encounter Summary ---
:1950 Author Organization [facility] Address [address] [place] [address]. [place] [address] Care Team Providers Name Role Phone Supa Reyes Primary Care Provider Reason for Visit Reason Onset Date Comments Refill Request 09/14/2017 Encounter Details Date Type Department Care Team Description 09/14/2017 Refill [facility] Vascular Wayne Cralson MD Refill Request Clinic [place] 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
--- OUTSIDE RECORDS SUMMARY | 2022-06-14 08:37 | XMS_ITS | Encounter Summary ---
:1950 Author Organization [facility] Address [address] [place] [address]. [place] [address] Care Team Providers Name Role Phone Juan Jose Adams MD Unavailable [phone] 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 documented as of this encounter Plan of Treatment Not on filedocumented as of this encounter Visit Diagnoses Not on filedocumented in this encounter Care Teams Card Grinder Helper Relationship Specialty Start Date End Date [facility] PCP - General 08/19/[address] [address] Juan Jose Adams, Assigned Heart and Vascular 09/07/20 Provider [address] [place] [address] documented as of this encounter
--- OUTSIDE RECORDS SUMMARY | 2022-06-14 08:37 | XMS_ITS | Encounter Summary ---
:1950 Author Organization [facility] Address [address] [facility] [place] [address] Care Team Providers Name Role Phone EricSupa marti Primary Care Provider Encounter Details Date Type Department Care Team Description 09/14/[address] [facility] Vascular Wayne Carlson MD [facility] [place] 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 Spoke with staff at office. Instructed patient needs 2 grams amoxicillin prior to procedures. Dental staff confirmed they will administer the antibiotic at the office. Refill of amoxicillin 2 gram PO sent to patient's primary pharmacy. STEPHEN Bolden, RN RVISOR SMALL APPLIANCE ASSEMBLY documented in this encounter Plan of Treatment Not on filedocumented as of this encounter Visit Diagnoses Not on filedocumented in this encounter Care Teams Recruiting Administrator Relationship Specialty Start Date End Date Supa Reyes PCP - General Family Practice 10/21/16 08/18/[address] [address] documented as of this encounter
--- OUTSIDE RECORDS SUMMARY | 2022-06-14 08:37 | XMS_ITS | Encounter Summary ---
:1950 Author Organization [place] Address [address] [place] [address] Care Team Providers Name Role Phone Supa Reyes Primary Care Provider Juan Jose Adams MD Unavailable [phone] Reason for Visit Reason Onset Date Comments Lab Result Notice 05/03/2021 Encounter Details Date Type Department Care Team Description 05/03/2021 Telephone [facility] Nurse Jennifer Jaquez golf club weigher Result Notice [facility] [address] [place] [address] Social History Tobacco Use Types Packs/Day Years Used Date Smoking Tobacco: Former Cigarettes Quit : 08/08/1990 Pipe Smokeless Tobacco: Never Alcohol Use Standard Drinks/Week Comments Yes 0 (1 standard drink = 0.6 oz pure alcoho l) 5 / week Sex Assigned at Date Recorded 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 Advised urgent care closed at1pm. Will call back tomorrow for lab results. Jennifer Jaquez RN 05/03/21 2:01 PM [facility] Triage Nurse Advisor documented in this encounter Plan of Treatment Not on filedocumented as of this encounter Visit Diagnoses Not on filedocumented in this encounter Care Teams Band Director Relationship Specialty Start Date End Date Supa Reyes PCP - General Family Practice 10/21/16 08/18/[address] [address] Juan Jose Adams Assigned Heart and 09/07/20 MD [facility] Provider [address] [place] [address] documented as of this encounter
--- OUTSIDE RECORDS SUMMARY | 2022-06-14 08:37 | XMS_ITS | Encounter Summary ---
:1950 Author Organization [place] Address [address] [place] [address]. [place] [address] Care Team Providers Name Role Phone Supa Reyes Primary Care Provider Reason for Visit Reason Onset Date Comments Refill Request 08/31/2018 Encounter Details Date Type Department Care Team Description 08/31/2018 Refill M [facility] Vascular Wayne Carlson MD Refill Request Clinic [place] 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
--- OUTSIDE RECORDS SUMMARY | 2022-06-14 08:37 | XMS_ITS | Encounter Summary ---
:1950 Author Organization [place] Address [address] [place] [address]. [place] [address] Care Team Providers Name Role Phone EricSupa marti Primary Care Provider Wayne Bennett MD Unavailable Reason for Visit Reason Onset Date Comments Appointment 06/03/2020 Encounter Details Date Type Department Care Team Description 06/03/2020 Telephone [facility] Vascular Wayne Carlson MD Appointment Clinic [place] 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 Bennett. Please scheduled NEW CONSULT with [facility] Medicine and in person. Bettina Hightower documented in this encounter Plan of Treatment Not on filedocumented as of this encounter Visit Diagnoses Not on filedocumented in this encounter Care Teams Extension Work Instructor Relationship Specialty Start Date End Date Supa Reyes PCP - General Family Practice 10/21/16 08/18/[address] [address] Wayne Bennett, Assigned Heart and 05/30/20 09/06/20 Vascular Provider [address] [place] [id number] documented as of this encounter
--- OUTSIDE RECORDS SUMMARY | 2022-06-14 08:37 | XMS_ITS | Encounter Summary ---
:1950 Author Organization [place] Address [address] [place] [address]. [place] [address] Care Team Providers Name Role Phone Supa Reyes Primary Care Provider Reason for Visit Reason Comments RECHECK Oscar carotid Encounter Details Date Type Department Care Team Description 05/31/2019 Office Visit [facility] Wayne Bennett Carotid stenosis, Surgery Clinic MD [place] asymptomatic, left [address] JUAN JOSE (Primary Dx) 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 documented as of this encounter Last Filed Vital Signs Vital Sign Reading Time Taken Comments Blood Pressure 140/70 05/31/2019 1:02 PM CDT Pulse 69 05/31/2019 1:02 PM CDT Temperature - - Respiratory Rate 16 05/31/2019 1:02 PM CDT Oxygen Saturation 94% 05/31/2019 1:02 PM CDT Inhaled Oxygen Concentration - - Weight 129.7 kg (286 lb) 05/31/2019 1:02 PM CDT Height 188 cm (6' 2) 05/31/2019 1:02 PM CDT Body Mass Index 36.72 05/31/2019 1:02 PM CDT documented in this encounter Progress Notes Mila Alamo RN - 05/31/2019 1:45 PM CDT Tyler to follow up with Primary Care provider regarding elevated blood pressure. Wayne Bennett MD - 05/31/2019 1:45 PM CDT No history TIA CVA Amaurosis fugax since last check. Carotids-4/4 no bruits motor/senspory function intact Cr. N. 2-12 intact. Ultrasound shows <50% right 50-69% left but velocities on the left havedecreased over the last year. Discussed. Continue present medications follow up ultrasound one year. documented in this encounter Plan of Treatment Not on filedocumented as of this encounter Visit Diagnoses Diagnosis Carotid stenosis, asymptomatic, left - P rimary documented in this encounter Care Teams Supervisor Dock Relationship Specialty Start Date End Date Supa Reyes PCP - General Family Practice 10/21/16 08/18/[address] [address] documented as of this encounter
--- OUTSIDE RECORDS SUMMARY | 2022-06-14 08:37 | XMS_ITS | Encounter Summary ---
:1950 Author Organization [place] Address [address] [place] [address]. [place] [address] Care Team Providers Name Role Phone Juan Jose Adams MD Unavailable [phone] Clinic, [facility] Primary Care Provide r Reason for Referral Diagnostic Imaging Ultrasound (Routine) - Pending Review Specialty Diagnoses / Procedures Referred By Contact Refer red To Contact Diagnoses History of carotid endarterectomy Occlusion and stenosis of left carotid artery Juan Jose Adams, Procedures US Carotid Bilateral [address] [place] [address] Referral ID Status Reason Start Date Expiration Date Visits V isits Requested Authorized [id number] Pending 09/01/2021 09/01/2022 1 1 Review HEALTH SPEECH THERAPIST Reason for Visit Reason Comments RECHECK 1 year Follow up Consultation (Routine) - Closed Specialty Diagnoses / Procedures Referred By Contact Refer red To Contact Diagnoses History of carotid endarterectomy Juan Jose Adams MD [address] [place] [address] Referral ID Status Reason Start Date Expiration Date Visits Requ ested Visits Authorized [id number] Closed 04/01/2021 04/01/2022 1 1 Encounter Details Date Type Department Care Team Description 09/01/[address] [facility] Christopher Hype rlipidemia LDL goal <70 (Primary Dx); Surgery Clinic MD [facility] History of left carotid endarterectomy ; [place] [address] Occlusion and stenosis of le ft carotid artery [address] [place] [address] [place], [place] [phone] (Wo rk) [id number] [phone] Social History Tobacco Use Types Packs/Day Years Used Date Smoking Tobacco: Former Cigarettes Quit : 08/08/1990 Pipe Smokeless Tobacco: Never Tobacco Cessation: Counseling Given: Yes Alcohol Use Standard Drinks/Week Comments Yes 0 (1 standard drink = 0.6 oz pure alcoho l) 5 / week Sex Assigned at Date Recorded Male 09/01/2020 5: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 documented as of this encounter Last Filed Vital Signs Vital Sign Reading Time Taken Comments Blood Pressure 126/64 09/01/2021 9:31 AM HOME HEALTH SPEECH THERAPIST Pulse 67 09/01/2021 9:31 AM HOME HEALTH SPEECH THERAPIST Temperature - - Respiratory Rate 16 09/01/2021 9:31 AM HOME HEALTH SPEECH THERAPIST Oxygen Saturation 95% 09/01/2021 9:31 AM HOME HEALTH SPEECH THERAPIST Inhaled Oxygen Concentration - - Weight 122.5 kg (270 lb) 09/01/2021 9:31 AM HOME HEALTH SPEECH THERAPIST Height 188 cm (6' 2) 09/01/2021 9:31 AM HOME HEALTH SPEECH THERAPIST Body Mass Index 34.67 09/01/2021 9:31 AM HOME HEALTH SPEECH THERAPIST documented in this encounter Progress Notes Juan Jose Adams MD - 09/01/2021 9:30 AM CST Tyler Muro is a 71 year old male who is presenting at the current time to discuss his diagnosi(es)of History of carotid endarterectomy HPI: Tyler Muro is a 71 year old male w/ a history of carotid artery ds who is S/P left carotid endarterectomy on 01/28/17; He is presenting today for 1 year follow up to 09/02/2020 appointment with myself.He recently had a duplex revealing the CEA to be patent wihtout clinically significant stenosis. Discrepant findings were noted in the left internal carotid artery with peak systolic velocity suggesting 50-69% stenosis. However, ratio and direct visualization suggests less than 50% stenosis. His atherosclerotic risk factors of htn and hyperlipidemia are well managed. His LD-C was last noted to be 35.His LDL-P is < 1000. His BP is well controlled. His most recent NMR of 05/16/2020 was not scannedinto Epic properly. ?? Review Of Systems Skin: negative Eyes: negative [...] % cream Apply topically 2 times daily ALLERGIES: No Known Allergies SOCIAL HISTORY: Social History Socioeconomic History ??? Marital status: Spouse name: Not on file ??? Number of children: Not on file ??? Years of education: Not on file ??? Highest education level: Not on file Occupational History ??? Not on file Tobacco Use ??? Smoking status: Former Smoker Types: Cigarettes, Pipe Quit date: 08/08/1990 Years since quittin.0 ??? Smokeless tobacco: Never Used Substance and Sexual Activity ??? Alcohol use: Yes Comment: 5 / week ??? Drug use: No ??? Sexual activity: Not on file Other Topics Concern ??? Parent/sibling w/ CABG, RI or angioplasty before 65F 55M? Not Asked Social History Narrative ??? Not on file Social Determinants of Health Financial Resource Strain: Not on file Food Insecurity: Not on file Transportation Needs: Not on file Physical Activity: Not on file Stress: Not on file Social Connections: Not on file Intimate Partner Violence: Not on file Housing Stability: Not on file FAMILY HISTORY: Family History [...] : no flank tenderness BILATERAL CAROTID ULTRASOUND 08/19/2021 10:17 AM ?? HISTORY: Left CEA 01/28/2017. Check for restenosis. Note last carotid duplex had discrepant LICA velocities and ratio. Please comment upon continued discrepancy, or true progression beyond 70% stenosis. History of carotid endarterectomy; Carotid stenosis, left. ?? COMPARISON: August 28, 2020 ?? RIGHT CAROTID FINDINGS: There is mild atherosclerotic plaque of the carotid bifurcation and proximal internal carotid artery. Right ICA PSV: 118 cm/sec. Right ICA EDV: 25 cm/sec. Right ICA/CCA PSV Ratio: 0.91 These indicate less than 50% diameter stenosis of the right ICA. Right Vertebral: Antegrade flow. Right ECA: Antegrade flow. ?? LEFT CAROTID FINDINGS: There is minimal to mild atherosclerotic plaque at the carotid bifurcation and proximal internal carotid artery. Left ICA PSV: 173 cm/sec. Left ICA EDV: 38 cm/sec. Left ICA/CCA PSV Ratio: 1.12 These indicate less than 50% diameter stenosis of the left ICA. Left Vertebral: Antegrade flow. Left ECA: Antegrade flow. ?? Causes of Decreased Accuracy: Again noted is discrepancy in the left internal carotid artery with peak systolic velocities suggestive of 50-69% stenosis, though direct visualization and ratio suggests less than 50% stenosis. ?? IMPRESSION: 1. Less than 50% diameter stenosis of the right ICA relative to the distal ICA diameter. 2. Less than 50% diameter stenosis of the left ICA relative to the distal ICA diameter. However, discrepant findings persist and unchanged from previous exam as peak systolic velocities suggests 50-69% stenosis, though direct visualization and ratios suggest less than 50% stenosis. ?? NICOLE TSANG MD BILATERAL CAROTID ULTRASOUND 08/28/2020 10:41 AM ?? [...] and ratios suggest less than 50% stenosis. A/P: (E78.5) Hyperlipidemia LDL goal <70 (primary encounter diagnosis) Comment: obtain 05/2020 results again as they scanned into Epic incorrectly Plan: Lipoprotein (a), LipoFit by NMR, CRP cardiac risk, atorvastatin (LIPITOR) 20 MG tablet (Z98.890) History of left carotid endarterectomy 01/28/2017 Comment: patent, repeat duplex in one year Plan: US Carotid Bilateral, Lipoprotein (a), LipoFit by NMR, CRP cardiac risk HEALTH SPEECH THERAPIST documented in this encounter Plan of Treatment Scheduled Orders Name Type Priority Associated Diagnoses Order S chedule US Carotid Bilateral Imaging Routine History of left lilly tid Expected: endarterectomy 08/01/2022, Expires: Occlusion and stenosis of left carotid artery Lipoprotein (a) Lab Routine History of left carotid E xpected: endarterectomy 08/01/2022, Expires: Hyperlipidemia LDL goal <70 08/01/2022 LipoFit by NMR Lab Routine History of left carotid Ex pected: endarterectomy 08/01/2022, Expires: Hyperlipidemia LDL goal <70 08/01/2022 CRP cardiac risk Lab Routine History of left carotid Expected: endarterectomy 08/01/2022, Expires: Hyperlipidemia LDL goal <70 08/01/2022 documented as of this encounter Visit Diagnoses Diagnosis Hyperlipidemia LDL goal <70 - Primary Other and unspecified hyperlipidemia History of left carotid endarterectomy Other postprocedural status Occlusion and stenosis of left carotid a rtery Occlusion and stenosis of carotid artery without mention of cerebral infarction documented in this encounter Care Teams Steamer Operator Relationship Specialty Start Date End Date [facility] PCP - General 08/19/[address] [address] Juan Jose Adams, Assigned Heart and Vascular 09/07/20 MD Provider [address] [place] [address] documented as of this encounter
--- OUTSIDE RECORDS SUMMARY | 2022-06-14 08:37 | XMS_ITS | Encounter Summary ---
:1950 Author Organization [place] Address [address] [place] [address]. [place] [address] Care Team Providers Name Role Phone Juan Jose Adams MD Unavailable [phone] 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 documented as of this encounter Plan of Treatment Not on filedocumented as of this encounter Visit Diagnoses Not on filedocumented in this encounter Care Teams Lawn And Tree Service Spray Supervisor Relationship Specialty Start Date End Date [facility] PCP - General 08/19/[address] [id number] Juan Jose Adams, Assigned Heart and Vascular 09/07/20 Provider [address] [place] [address] documented as of this encounter
--- OUTSIDE RECORDS SUMMARY | 2022-06-14 08:37 | XMS_ITS | Encounter Summary ---
:1950 Author Organization [place] Address [address] [place] [address] Care Team Providers Name Role Phone Supa Reyes Primary Care Provider Wayne Bennett MD Unavailable Encounter Details Date Type Department Care Team Description 06/09/2020 Orders Only [facility] Yareli Roman Prophyla ctic antibiotic Vascular Clinic Mauricio munoz RN [address] [place] [phone] Social History Tobacco Use Types Packs/Day Years Used Date Smoking Tobacco: Former Cigarettes Quit : 08/08/1990 Pipe Smokeless Tobacco: Never Alcohol Use Standard Drinks/Week Comments Yes 0 (1 standard drink = 0.6 oz pure alcoho l) 5 / week Sex Assigned at Date Recorded 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
--- OUTSIDE RECORDS SUMMARY | 2022-06-14 08:37 | XMS_ITS | Encounter Summary ---
:1950 Author Organization [place] Address [address] [place] [address] Care Team Providers Name Role Phone Supa Reyes Primary Care Provider Wayne Bennett MD Unavailable Juan Jose Adams MD Unavailable [phone] [facility] Primary Care Provide r Reason for Referral Diagnostic Imaging Ultrasound (Routine) - Closed Specialty Diagnoses / Procedures Referred By Contact Refer red To Contact Diagnoses History of carotid endarterectomy Stenosis of carotid artery, unspecified laterality V[facility] Procedures US Carotid Bilateral [address] [place] [phone] Referral ID Status Reason Start Date Expiration Date Visits Requ ested Visits Authorized [id number] Closed 08/05/2020 08/05/2021 1 1 AR WORKER (Routine) - Closed Specialty Diagnoses / Procedures Referred By Contact Refer red To Contact Diagnoses History of carotid endarterectomy Stenosis of carotid artery, unspecified laterality Vascular Center [address] [place] [phone] Referral ID Status Reason Start Date Expiration Date Visits Requ ested Visits Authorized [id number] Closed 08/05/2020 08/05/2021 1 1 AR WORKER Encounter Details Date Type Department Care Team Description 05/29/2020 Orders Only [facility] Nurse, [facility] History o f carotid endarterectomy (Primary Dx); Vascular Clinic Mauricio a Stenosis of carotid artery, unspecified laterality 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 documented as of this encounter Plan of Treatment Scheduled Referrals Name Type Priority Associated Diagnoses Order S chedule Follow-Up with Referral Routine History of carotid Expecte d: 09/05/2020 Vascular Medicine endarterectomy (Approximate), Stenosis of carotid Expires: 05/29/2021 artery, unspecified laterality documented as of this encounter Results US Carotid Bilateral (08/28/2020 10:41 AM CELLAR WORKER) Anatomical Region Laterality Modality Vascular, Head Ultrasound Specimen (Source) Anatomical Location Collection Method / Collectio n Time Received Time / Laterality Volume Impressions 08/28/2020 12:02 PM CELLAR WORKER IMPRESSION: ?? 1. Less than 50% diameter stenosis of th e right ICA relative to the distal ICA diameter. 2. Less than 50% diameter stenosis of th e left ICA relative to the distal ICA diameter. However, discrepant findings in that peak systolic velocity suggests 50-69% stenos is. Direct visualization and ratios suggest less than 50% stenosis. MIKY WILD MD Narrative 08/28/2020 12:02 PM CELLAR WORKER BILATERAL CAROTID ULTRASOUND ?? 08/28/2020 10:41 AM HISTORY: ??History of left carotid endar terectomy on 01/28/2017. History of carotid endarterectomy. Stenosis of c arotid artery, unspecified laterality. COMPARISON: May 31, 2019 RIGHT CAROTID FINDINGS: ??There is minim al atherosclerotic plaque at the carotid bifurcation and proximal int ernal carotid artery. Right ICA PSV: ??91 cm/sec. Right ICA EDV: ??29 cm/sec. Right ICA/CCA PSV Ratio: ??0.89 ?? These indicate less than 50% diameter st enosis of the right ICA. ?? Right Vertebral: Antegrade flow. Right ECA: Antegrade flow. LEFT CAROTID FINDINGS: ??There is minima l atherosclerotic plaque at the carotid bifurcation and proximal interna l carotid artery. Left ICA PSV: ??179 cm/sec. Left ICA EDV: ??33 cm/sec. Left ICA/CCA PSV Ratio: ??1.5 ?? These indicate less than 50% diameter st enosis of the left ICA. ?? Left Vertebral: Antegrade flow. Left ECA: Antegrade flow. Causes of Decreased Accuracy: ??Discrepa nt findings in the left internal carotid artery with peak systol ic velocity suggesting 50-69% stenosis. However, ratio and direct visu alization suggests less than 50% stenosis. Procedure Note Miky Wild MD - 08/28/2020 BILATERAL CAROTID ULTRASOUND 08/28/2020 1 0:41 AM HISTORY: History of left carotid endarte rectomy on 01/28/2017. History of carotid endarterectomy. Stenosis of c arotid artery, unspecified laterality. COMPARISON: May 31, 2019 RIGHT CAROTID FINDINGS: There is minimal atherosclerotic plaque at the carotid bifurcation and proximal int ernal carotid artery. Right ICA PSV: 91 cm/sec. Right ICA EDV: 29 cm/sec. Right ICA/CCA PSV Ratio: 0.89 These indicate less than 50% diameter st enosis of the right ICA. Right Vertebral: Antegrade flow. Right ECA: Antegrade flow. LEFT CAROTID FINDINGS: There is minimal atherosclerotic plaque at the carotid bifurcation and proximal interna l carotid artery. Left ICA PSV: 179 cm/sec. Left ICA EDV: 33 cm/sec. Left ICA/CCA PSV Ratio: 1.5 These indicate less than 50% diameter st enosis of the left ICA. Left Vertebral: Antegrade flow. Left ECA: Antegrade flow. Causes of Decreased Accuracy: Discrepant findings in the left internal carotid artery with peak systol ic velocity suggesting 50-69% stenosis. However, ratio and direct visu alization suggests less than 50% stenosis. IMPRESSION: 1. Less than 50% diameter stenosis of th e right ICA relative to the distal ICA diameter. 2. Less than 50% diameter stenosis of th e left ICA relative to the distal ICA diameter. However, discrepant findings in that peak systolic velocity suggests 50-69% stenos is. Direct visualization and ratios suggest less than 50% stenosis. MIKY WILD MD Juan Jose Adams MD IMG US ORDERABLES documented in this encounter Visit Diagnoses Diagnosis History of carotid endarterectomy - Prim zachariah Other postprocedural status Stenosis of carotid artery, unspecified laterality History of carotid endarterectomy Other postprocedural status Stenosis of carotid artery, unspecified laterality documented in this encounter Care Teams Divisional Merchandising Manager Relationship Specialty Start Date End Date Supa Reyes PCP - [facility] 10/21/16 08/18/[address] [id number] [facility] PCP - General 08/19/[address] [address] Wayne Bennett MD Assigned Heart and 05/30/20 09/06/[address] Vascular Provider [place] [address] Juan Jose Adams Assigned Heart and 09/07/20 MD [place] Vascular Provider [address] [place] [address] documented as of this encounter
--- OUTSIDE RECORDS SUMMARY | 2022-06-14 08:37 | XMS_ITS | Encounter Summary ---
:1950 Author Organization [place] Address [address] [place] [address]. [place] [address] Care Team Providers Name Role Phone Supa Reyes Primary Care Provider Reason for Visit (Routine) - Closed Specialty Diagnoses / Procedures Referred By Contact Refer red To Contact Radiology / Diagnoses Left carotid (9:40 [facility]CC; 10:45 HLS) Overdue 1 month follow up from 04/27/17, hx of left CEA on 01/28/17 *lr Rh Ultrasound [facility] Radiology. Procedures US CAROTID LEFT [address] [place] [address] Phone: Fax: Referral ID Status Reason Start Date Expiration Date Visits Requ ested Visits Authorized [id number] Closed 08/03/2017 08/03/2018 1 1 Encounter Details Date Type Department Care Team Description 08/10/2017 Hospital Encounter [facility] Wayne Bennett rotid artery [facility] stenosis [facility] [address] [address] [employer] [place] [facility] [address] [place] [address] [place], [place] [phone] (Work) [phone] Social History Tobacco Use Types Packs/Day Years Used Date Smoking Tobacco: Former Cigarettes Quit : 08/08/1990 Pipe Smokeless Tobacco: Never Alcohol Use Standard Drinks/Week Comments Yes 0 (1 standard drink = 0.6 oz pure alcoho l) 5 / week Sex Assigned at Date Recorded Male 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 encounter Medications at Time of Discharge Medication Sig Dispensed Refills Start Date End Date Rivaroxaban (XARELTO PO) Take 20 mg by mouth 0 every evening triamcinolone (KENALOG) Apply topically 2 0 0.1 % cream times daily ATORVASTATIN CALCIUM PO Take 20 mg by mouth 0 09/01/2021 At Bedtime aspirin EC 81 MG EC Take 1 tablet (81 0 7 09/01/2021 tabletIndications: mg) by mouth daily Carotid stenosis, left LISINOPRIL PO Take 5 mg by mouth 0 every evening Reported on 12/01/2016 SOTALOL HCL PO Take 80 mg by mouth 0 0 09/01/2021 2 times daily documented as of this encounter Plan of Treatment Not on filedocumented as of this encounter Procedures Procedure Name Priority Date/Time Associated Diagnosis Comme nts US CAROTID LEFT Routine 08/10/2017 9:41 AM Carotid artery Resu lts for this SERVICE DEPARTMENT MANAGER stenosis procedure are i n the results section. documented in this encounter Results US Carotid Left (08/10/2017 9:41 AM SERVICE DEPARTMENT MANAGER) Anatomical Region Laterality Modality Vascular, Head Ultrasound Specimen (Source) Anatomical Location Collection Method / Collectio n Time Received Time / Laterality Volume Impressions 08/10/2017 9:51 AM SERVICE DEPARTMENT MANAGER IMPRESSION: ??50-69% diameter stenosis of the left ICA relative to the distal ICA diameter. Postoperative north es of carotid endarterectomy. SARA SMALL DO Narrative 08/10/2017 9:51 AM SERVICE DEPARTMENT MANAGER LEFT CAROTID ULTRASOUND ?? 08/10/2017 9:41 AM HISTORY: ??Left carotid endarterectomy . Carotid artery stenosis. COMPARISON: None. LEFT CAROTID FINDINGS: ??No significant plaque. Postoperative changes of carotid endarterectomy. Left ICA PSV: ??190 cm/sec. Left ICA EDV: ??35 cm/sec. Left ICA/CCA PSV Ratio: ??1.7 ?? These indicate 50-69% diameter stenosis of the left ICA. ?? Left Vertebral: Antegrade flow. Left ECA: Antegrade flow. Causes of Decreased Accuracy: ?? None. Procedure Note Sara Small DO - 2017 LEFT CAROTID ULTRASOUND 08/10/2017 9:41 AM HISTORY: Left carotid endarterectomy 01/07. Carotid artery stenosis. COMPARISON: None. LEFT CAROTID FINDINGS: No significant pl aque. Postoperative changes of carotid endarterectomy. Left ICA PSV: 190 cm/sec. Left ICA EDV: 35 cm/sec. Left ICA/CCA PSV Ratio: 1.7 These indicate 50-69% diameter stenosis of the left ICA. Left Vertebral: Antegrade flow. Left ECA: Antegrade flow. Causes of Decreased Accuracy: None. IMPRESSION: 50-69% diameter stenosis of the left ICA relative to the distal ICA diameter. Postoperative north es of carotid endarterectomy. SARA SMALL DO Wayne Bennett MD IMG ORDERABLES documented in this encounter Visit Diagnoses Diagnosis Carotid artery stenosis Occlusion and stenosis of carotid artery without mention of cerebral infarction documented in this encounter Care Teams Intelligence Manager Relationship Specialty Start Date End Date Supa Reyes PCP - General Family Practice 10/21/16 08/18/[address] [address] documented as of this encounter
--- OUTSIDE RECORDS SUMMARY | 2022-06-14 08:37 | XMS_ITS | Encounter Summary ---
:1950 Author Organization [place] Address [address] [place] [address] Care Team Providers Name Role Phone Supa Reyes Primary Care Provider Reason for Referral Diagnostic Imaging Ultrasound (Routine) - Closed Specialty Diagnoses / Procedures Referred By Contact Refer red To Contact Radiology. Diagnoses Carotid artery stenosis History of carotid endarterectomy Wayne Bennett, Rh Ultrasound Procedures US Carotid Bilateral [address] [place] [phone] Fax: Referral ID Status Reason Start Date Expiration Date Visits Requ ested Visits Authorized [id number] Closed 03/08/2019 03/07/2020 1 1 Reason for Visit Diagnostic Imaging Ultrasound (Routine) - Closed Specialty Diagnoses / Procedures Referred By Contact Refer red To Contact Radiology. Diagnoses Carotid artery stenosis History of carotid endarterectomy Wayne Bennett, Rh Ultrasound Procedures US Carotid Bilateral [address] [place], [place] [phone] Fax: Referral ID Status Reason Start Date Expiration Date Visits Requ ested Visits Authorized [id number] Closed 03/08/2019 03/07/2020 1 1 Encounter Details Date Type Department Care Team Description 05/31/2019 [facility] Lor Paiz MD History of carotid endarterectomy [address] [address] [place] [address] [phone] Social History Tobacco Use Types Packs/Day Years Used Date Smoking Tobacco: Former Cigarettes Quit : 08/08/1990 Pipe Smokeless Tobacco: Never Alcohol Use Standard Drinks/Week Comments Yes 0 (1 standard drink = 0.6 oz pure alcoho l) 5 / week Sex Assigned at Date Recorded 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 documented as of this encounter Medications at Time of Discharge Medication Sig Dispensed Refills Start Date End Date Rivaroxaban (XARELTO PO) Take 20 mg by mouth 0 every evening triamcinolone (KENALOG) Apply topically 2 0 0.1 % cream times daily ATORVASTATIN CALCIUM PO Take 20 mg by mouth 0 09/01/2021 At Bedtime amoxicillin (AMOXIL) 500 Take 1 capsule (500 4 capsule 1 06/09/2020 MG capsuleIndications: mg) by mouth once as Prophylactic antibiotic needed (take 4 capsules (2000mg) by mouth one hour before procedure) aspirin EC 81 MG EC Take 1 [...] Date/Time Associated Diagnosis Comme nts US CAROTID Routine 05/31/2019 12:49 Carotid artery stenosis Results for this BILATERAL PM CDT History of carotid procedure are in endarterectomy the results section. documented in this encounter Results US Carotid Bilateral (05/31/2019 [...] distal ICA diameter, unchanged. SARA SMALL DO Narrative 06/01/2019 10:57 AM CDT BILATERAL CAROTID [...] unchanged. SARA SMALL DO Wayne Bennett MD IMG US ORDERABLES documented in this encounter Visit Diagnoses Diagnosis Carotid artery stenosis Occlusion and stenosis of carotid artery without mention of cerebral infarction History of carotid endarterectomy Other postprocedural status documented in this encounter Care Teams Artist Relationship Manager Relationship Specialty Start Date End Date Supa Reyes PCP - General Family Practice 10/21/16 08/18/[address] [address] documented as of this encounter
--- OUTSIDE RECORDS SUMMARY | 2022-06-14 08:37 | XMS_ITS | Encounter Summary ---
:1950 Author Organization [place] Address [address] [facility] [place] [address] Care Team Providers Name Role Phone Supa Reyes Primary Care Provider Reason for Visit Reason Onset Date Comments Refill Request 10/19/2017 Encounter Details Date Type Department Care Team Description 10/19/2017 Refill [facility] Vascular Kiersten cabrera, Wayne Paiz MD Refill Request Clinic [place] 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 Pt called and stated he is having a colonoscopy done in beginning of November and needs prophylactic antibiotics before procedure. Instructed patient to take 2000mg of amoxicillin one hour prior to procedure. Prescription sent to [facility] via [facility]. STEPHEN Bolden, RN documented in this encounter Plan of Treatment Not on filedocumented as of this encounter Visit Diagnoses Diagnosis Prophylactic antibiotic - Primary Encounter for long-term (current) use of antibiotics documented in this encounter Care Teams Senior Clinical Research Associate Relationship Specialty Start Date End Date Supa Reyes PCP - General Family Practice 10/21/16 08/18/21 [place] [address] documented as of this encounter
--- OUTSIDE RECORDS SUMMARY | 2022-06-14 08:37 | XMS_ITS | Encounter Summary ---
:1950 Author Organization [place] Address [address] [place] [address]. [place] [address] Care Team Providers Name Role Phone Supa Reyes Primary Care Provider Reason for Referral Diagnostic Imaging Ultrasound - Closed Specialty Diagnoses / Procedures Referred By Contact Refer red To Contact Radiology. Diagnoses Carotid artery stenosis Wayne Bennett MD Rh Ultrasound Procedures US Carotid Bilateral [address] [address] Phone: Fax: Referral ID Status Reason Start Date Expiration Date Visits Requ ested Visits Authorized [id number] Closed 05/08/2018 05/08/2019 1 1 Reason for Visit Diagnostic Imaging Ultrasound - Closed Specialty Diagnoses / Procedures Referred By Contact Refer red To Contact Radiology. Diagnoses Carotid artery stenosis Wayne Bennett MD Rh Ultrasound Procedures US Carotid Bilateral [address] [place] [place] [address] [address] Phone: Fax: Referral ID Status Reason Start Date Expiration Date Visits Requ ested Visits Authorized [id number] Closed 05/08/2018 05/08/2019 1 1 Encounter Details Date Type Department Care Team Description 05/11/2018 Hospital Encounter [facility] Wayne Bennett rotid artery [facility] MD [place] stenosis [address] [place] [address] [address] [place] [address] [phone] Social History Tobacco Use Types Packs/Day Years Used Date Smoking Tobacco: Former Cigarettes Quit : 08/08/1990 Pipe Smokeless Tobacco: Never Alcohol Use Standard Drinks/Week Comments Yes 0 (1 standard drink = 0.6 oz pure alcoho l) 5 / week Sex Assigned at Date Recorded 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 documented in this encounter Results US Carotid Bilateral (05/11/2018 [...] >4 and ICA EDV >100 c m/sec MD Josh GILBERT 05/11/2018 1:25 PM CDT PROCEDURE: Bilateral carotid [...] m/sec TITUS THOMAS MD Wayne Bennett MD IM US ORDERABLES documented in this encounter Visit Diagnoses Diagnosis Carotid artery stenosis Occlusion and stenosis of carotid artery without mention of cerebral infarction documented in this encounter Care Teams Special Procedures Technologist Relationship Specialty Start Date End Date Supa Reyes PCP - General Family Practice 10/21/16 08/18/21 [place] [address] documented as of this encounter
--- OUTSIDE RECORDS SUMMARY | 2022-06-14 08:37 | XMS_ITS | Encounter Summary ---
:1950 Author Organization [place] Address [address] [place] [address] Care Team Providers Name Role Phone Supa Reyes Primary Care Provider Wayne Bennett MD Unavailable Reason for Referral Diagnostic Imaging Ultrasound (Routine) - Closed Specialty Diagnoses / Procedures Referred By Contact Refer red To Contact Diagnoses History of carotid endarterectomy Stenosis of carotid artery, unspecified laterality Vascular Center Procedures US Carotid Bilateral [address] [place] [phone] Referral ID Status Reason Start Date Expiration Date Visits Requ ested Visits Authorized [id number] Closed 08/05/2020 08/05/2021 1 1 NING ROOM ATTENDANT Reason for Visit Diagnostic Imaging Ultrasound (Routine) - Closed Specialty Diagnoses / Procedures Referred By Contact Refer red To Contact Diagnoses History of carotid endarterectomy Stenosis of carotid artery, unspecified laterality Vascular Center Procedures US Carotid Bilateral [address] [place] [address] Referral ID Status Reason Start Date Expiration Date Visits Requ ested Visits Authorized [id number] Closed 08/05/2020 08/05/2021 1 1 Encounter Details Date Type Department Care Team Description 08/28/2020 [facility] of [facility]; [facility] Keyshawn Laww, MD Stenosis of carotid artery, unspecified laterality [address] [address] [place] [address] [address] [place] [address] Social History Tobacco Use Types Packs/Day Years Used Date Smoking Tobacco: Former Cigarettes Quit : 08/08/1990 Pipe Smokeless Tobacco: Never Alcohol Use Standard Drinks/Week Comments Yes 0 (1 standard drink = 0.6 oz pure alcoho l) 5 / week Sex Assigned at Date Recorded Male 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 documented as of this encounter Medications at Time of Discharge Medication Sig Dispensed Refills Start Date End Date Rivaroxaban (XARELTO PO) Take 20 mg by mouth 0 every evening triamcinolone (KENALOG) Apply topically 2 0 0.1 % cream times daily amoxicillin (AMOXIL) 500 Take 1 capsule (500 4 capsule 3 09/08/2021 MG capsuleIndications: mg) by mouth once as Prophylactic antibiotic needed (take 4 capsules (2000mg) by mouth one hour prior to dental procedure.) ATORVASTATIN CALCIUM PO Take 20 mg by [...] Associated Diagnosis Comme nts US CAROTID Routine 08/28/2020 10:41 AM History of carotid Re sults for this BILATERAL RIPENING ROOM ATTENDANT endarterectomy procedure are in Stenosis of carotid the resu lts artery, unspecified section. laterality documented in this encounter Results US Carotid Bilateral (08/28/2020 10:41 AM RIPENING ROOM ATTENDANT) Anatomical Region Laterality Modality Vascular, Head Ultrasound Specimen (Source) Anatomical Location Collection Method / Collectio n Time Received Time / Laterality Volume Impressions 08/28/2020 12:02 PM RIPENING ROOM ATTENDANT IMPRESSION: ?? 1. Less than 50% diameter [...] MIKY WILD MD Narrative 08/28/2020 12:02 PM RIPENING ROOM ATTENDANT BILATERAL CAROTID ULTRASOUND ?? 08/28/2020 10:41 AM [...] MIKY WILD MD Juan Jose Adams MD IM US ORDERABLES documented in this encounter Visit Diagnoses Diagnosis History of carotid endarterectomy Other postprocedural status Stenosis of carotid artery, unspecified laterality documented in this encounter Care Teams Logistics Engineer Relationship Specialty Start Date End Date Supa Reyes PCP - General Family Practice 10/21/16 08/18/[address] [address] Wayne Bennett, [facility] Heart and 05/30/20 09/06/20 Vascular Provider [address] [place] [address] documented as of this encounter
--- OUTSIDE RECORDS SUMMARY | 2022-06-14 08:37 | XMS_ITS | Encounter Summary ---
:1950 Author Organization [place] Address [address] [place] [address]. [place] [address] Care Team Providers Name Role Phone Supa Reyes Primary Care Provider Encounter Details Date Type Department Care Team Description 02/18/2017 [facility] Mauricio Paiz MD stenosis (Primary Dx) 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 Postoperative north es of carotid endarterectomy. SARA SMALL, DO Narrative 08/10/2017 9:51 AM UROGYNECOLOGY PHYSICIAN LEFT CAROTID ULTRASOUND ?? 08/10/2017 9:41 AM [...] infarction documented in this encounter Care Teams Rug Cutter Helper Relationship Specialty Start Date End Date Supa Reyes PCP - General Family Practice 10/21/16 08/18/21 [place] [address] documented as of this encounter
--- OUTSIDE RECORDS SUMMARY | 2022-06-14 08:37 | XMS_ITS | Encounter Summary ---
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 documented as of this encounter Plan of Treatment Not on filedocumented as of this encounter Visit Diagnoses Not on filedocumented in this encounter Care Teams Senior Laboratory Technician Relationship Specialty Start Date End Date Supa Reyes PCP - General Family Practice 10/21/16 08/18/[address] [address] Wayne Bennett, Assigned Heart and 05/30/20 09/06/20 Vascular Provider [address] [place] [address] documented as of this encounter
--- OUTSIDE RECORDS SUMMARY | 2022-06-14 08:37 | XMS_ITS | Encounter Summary ---
:1950 Author Organization [place] Address [address] [place] [address]. [place] [address] Care Team Providers Name Role Phone Supa Reyes Primary Care Provider Reason for Visit Reason Comments RECHECK incision check, pt s/p left CEA 01/28/17 Encounter Details Date Type Department Care Team Description 04/27/2017 Office Visit [facility] Wayne Bennett Atherosc lerotic Vascular Clinic MD Chen[place] peripheral vascular [place] [address] disease (H) (Primary Dx) 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 I discussed options of treatment with him. He is happy to follow a conservative course at present. documented in this encounter Nursing Notes Montse Parmar MA - 04/27/2017 1:45 PM CDT Chief Complaint Patient presents with ??? RECHECK incision check, pt s/p left CEA 01/28/17 Initial BP 134/76 (BP Location: Left arm, Patient Position: Chair, Cuff Size: Adult Large) Pulse 51 Estimated body mass index is 33.25 kg/(m^2) as calculated from the following: Height as of 02/16/17: 6' 2 (1.88 m). Weight as of 02/16/17: 259 lb (117.5 kg). Medication Reconciliation: complete Face to face nursing time: 8 minutes Montse Parmar MA documented in this encounter Plan of Treatment Not on filedocumented as of this encounter Visit Diagnoses Diagnosis Atherosclerotic peripheral vascular dise ase (H) - Primary Atherosclerosis of [place] arteries of th e extremities, unspecified documented in this encounter Care Teams Bottle Packer Relationship Specialty Start Date End Date Supa Reyes PCP - General Family Practice 10/21/16 08/18/[address] [address] documented as of this encounter
--- OUTSIDE RECORDS SUMMARY | 2022-06-14 08:37 | XMS_ITS | Encounter Summary ---
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
--- OUTSIDE RECORDS SUMMARY | 2022-06-14 08:37 | XMS_ITS | Encounter Summary ---
:1950 Author Organization [place] Address [address] [place] [address]. [place] [address] Care Team Providers Name Role Phone Juan Jose Adams MD Unavailable [phone] Clinic, [facility] Primary Care Provide r Reason for Referral Diagnostic Imaging Ultrasound (Routine) - Closed Specialty Diagnoses / Procedures Referred By Contact Refer red To Contact Diagnoses History of carotid endarterectomy Juan Jose Adams, Procedures US Carotid Bilateral US Carotid Bilateral MD Rita [address] [place] [address] Referral ID Status Reason Start Date Expiration Date Visits Requ ested Visits Authorized [id number] Closed 09/02/2020 09/02/2021 1 1 PURIFICATION WORKER Reason for Visit Diagnostic Imaging Ultrasound (Routine) - Closed Specialty Diagnoses / Procedures Referred By Contact Refer red To Contact Diagnoses History of carotid endarterectomy Juan Jose Adams, Procedures US Carotid Bilateral US Carotid Bilateral [address] [place] [address] Referral ID Status Reason Start Date Expiration Date Visits Requ ested Visits Authorized [id number] Closed 09/02/2020 09/02/2021 1 1 Encounter Details Date Type Department Care Team Description 08/19/2021 [facility] Adams, Christopher Hist ory of left carotid endarterectomy 01/28/2017; Encounter [facility] MD Segundo Carotid stenosis, left [facility] [address] [address] [place] [address] [address] [place], [place] (Work) [address] [phone] Social History Tobacco Use Types Packs/Day Years Used Date Smoking Tobacco: Former Cigarettes Quit : 08/08/1990 Pipe Smokeless Tobacco: Never Alcohol Use Standard Drinks/Week Comments Yes 0 (1 standard drink = 0.6 oz pure alcoho l) 5 / week Sex Assigned at Date Recorded Male 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 documented in this encounter Results US Carotid Bilateral (08/19/2021 10:17 AM FAT PURIFICATION WORKER) Anatomical Region Laterality Modality Vascular, Head Ultrasound Specimen (Source) Anatomical Location Collection Method / Collectio n Time Received Time / Laterality Volume Impressions 08/19/2021 11:02 AM FAT PURIFICATION WORKER IMPRESSION: ?? 1. Less than 50% [...] ratios suggest less than 50% stenosis. MIKY TSANG MD Narrative 08/19/2021 11:02 AM FAT PURIFICATION WORKER BILATERAL CAROTID ULTRASOUND ?? 08/19/2021 10:17 AM [...] less than 50% stenosis. Procedure Note Miky Tsang MD - 08/19/2021 BILATERAL CAROTID ULTRASOUND 08/19/2021 [...] ratios suggest less than 50% stenosis. MIKY TSANG MD Juan Jose Adams MD IMG US ORDERABLES documented in this encounter Visit Diagnoses Diagnosis History of left carotid endarterectomy Other postprocedural status Carotid stenosis, left Occlusion and stenosis of carotid artery without mention of cerebral infarction documented in this encounter Care Teams Parts Interpreter Relationship Specialty Start Date End Date [facility], [facility] PCP - General 08/19/[address] [address] Juan Jose Adams, Assigned Heart and Vascular 09/07/20 Provider [address] [place] [address] documented as of this encounter
--- OUTSIDE RECORDS SUMMARY | 2022-06-14 08:37 | XMS_ITS | Encounter Summary ---
:1950 Author Organization [facility] Address [address] [place] [address]. [place] [address] Care Team Providers Name Role Phone Supa Reyes Primary Care Provider Reason for Visit Reason Comments RECHECK 1 month f/u Encounter Details Date Type Department Care Team Description 08/10/2017 Office Visit [facility] Wayne Bennett Carotid stenosis, Surgery Clinic MD Chencho asymptomatic, left [address] (Primary Dx) 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 documented as of this encounter Last Filed Vital Signs Vital Sign Reading Time Taken Comments Blood Pressure 144/78 08/10/2017 9:50 AM ROCK PICKER Pulse 55 08/10/2017 9:50 AM ROCK PICKER Temperature - - Respiratory Rate 16 08/10/2017 9:50 AM ROCK PICKER Oxygen Saturation 96% 08/10/2017 9:50 AM ROCK PICKER Inhaled Oxygen Concentration - - Weight 117.5 kg (259 lb) 08/10/2017 9:50 AM ROCK PICKER pt repo rted Height 188 cm (6' 2) 08/10/2017 9:50 AM ROCK PICKER pt report ed Body Mass Index 33.25 08/10/2017 9:50 AM ROCK PICKER documented in this encounter Progress Notes Wayne Bennett MD - 08/10/2017 10:45 AM CST 6 month F/U from left carotid endarterectomy. No history of TIA CVA Amaurosis fugax since last check. Sensation returning left neck. Motor/sensory intact Cr. N. 2-12 intact Carotids 4/4 no bruits. Doing well U/S shows peak velocity 190. F/U 9 months. Discussed PICKER documented in this encounter Plan of Treatment Not on filedocumented as of this encounter Visit Diagnoses Diagnosis Carotid stenosis, asymptomatic, left - P rimary documented in this encounter Care Teams Management Liaison Relationship Specialty Start Date End Date Supa Reyes PCP - General Family Practice 10/21/16 08/18/21 [place] [address] documented as of this encounter
--- OUTSIDE RECORDS SUMMARY | 2022-06-14 08:37 | XMS_ITS | Encounter Summary ---
:1950 Author Organization [facility] Address [address] [place] [address] Care Team Providers Name Role Phone Supa Reyes Primary Care Provider Reason for Visit Reason Onset Date Comments Medication Question 09/14/2017 Encounter Details Date Type Department Care Team Description 09/14/2017 Telephone [facility] Wayne Bennett on Question Vascular Clinic Mauricio Paiz MD 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 Pt is s/p left CEA 01/28/17. Called patient back andinformed him that he does need to have an antibiotic prior to dental procedure. Patient stated his dentist has amoxicillin at facility, and informed patient he needs 2 grams of amoxicillin per standingorder. Patient verbalized back antibiotic name and strength. Patient notes understanding and had no further questions. STEPHEN Bolden, RN C ARTIST documented in this encounter Plan of Treatment Not on filedocumented as of this encounter Visit Diagnoses Not on filedocumented in this encounter Care Teams Machinery Rigger Relationship Specialty Start Date End Date Supa Reyes PCP - General Family Practice 10/21/16 08/18/21 [place] [address] documented as of this encounter
--- OUTSIDE RECORDS SUMMARY | 2022-06-14 08:38 | XMS_ITS | Encounter Summary ---
:1950 Author Organization [facility] Address [address] [place] [address]. [place] [address] Care Team Providers Name Role Phone Supa Reyes Primary Care Provider Reason for Visit Reason Comments RECHECK discuss left carotid endarte rectomy Encounter Details Date Type Department Care Team Description [facility]/01[facility]2016 [facility] MD Chencoh carotid artery [address] [facility] 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 documented as of this encounter Last Filed Vital Signs Vital Sign Reading Time Taken Comments Blood Pressure 122/80 12/01/2016 9:55 AM CDT Pulse 127 12/01/2016 9:55 AM CDT Temperature - - Respiratory Rate - - Oxygen Saturation 98% 12/01/2016 9:55 AM CDT Inhaled Oxygen Concentration - - Weight 117.9 kg (260 lb) 12/01/2016 9:55 AM CDT pt repo rted Height 188 cm (6' 2) 12/01/2016 9:55 AM CDT pt report e Body Mass Index 33.38 12/01/2016 9:55 AM CDT documented in this encounter Progress Notes Wayne Bennett MD - 12/01/2016 10:00 AM CDT Patient had prostate operation and went into A-fib/flutter post operatively now taking Metoprolol and Xarelto. Long discussion regarding carotid operation risks goals and alternatives as well as timingwith regard to treatment of his A-fib. He will see his parole director in the next week or two. I thinkit would be best to have his arythmia addressed prior to his carotid surgery. Face to face time 30 minutes greater than 50% in consultation. documented in this encounter Plan of Treatment Not on filedocumented as of this encounter Visit Diagnoses Diagnosis Stenosis of left carotid artery - Primar y Occlusion and stenosis of carotid artery without mention of cerebral infarction documented in this encounter Care Teams Wash Worker Relationship Specialty Start Date End Date Supa Reyes PCP - General Family Practice 10/21/16 08/18/21 [place] [address] documented as of this encounter
--- OUTSIDE RECORDS SUMMARY | 2022-06-14 08:38 | XMS_ITS | Encounter Summary ---
:1950 Author Organization [facility] Address [address] [place] [address]. [place] [address] Care Team Providers Name Role Phone Supa Reyes Primary Care Provider Reason for Visit Reason Comments RECHECK discuss carotid endarterecto my Encounter Details Date Type Department Care Team Description 01/05/2017 Office Visit [facility] Wayne Bennett Carotid stenosis, left Surgery Clinic MD Chen[place] (Primary Dx) [place] [id number] 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 documented as of this encounter Last Filed Vital Signs Vital Sign Reading Time Taken Comments Blood Pressure 122/68 01/05/2017 11:52 AM CDT Pulse 49 01/05/2017 11:46 AM CDT Temperature - - Respiratory Rate - - Oxygen Saturation 97% 01/05/2017 11:46 AM CDT Inhaled Oxygen Concentration - - Weight 117.9 kg (260 lb) 01/05/2017 11:46 AM CDT pt rep orted Height 188 cm (6' 2) 01/05/2017 11:46 AM CDT pt repor krishna Body Mass Index 33.38 01/05/2017 11:46 AM CDT documented in this encounter Progress Notes Wayne Bennett MD - 01/05/2017 11:45 AM CDT Discussed endarterectomy again with the patient and his . 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 Will schedule operation when cardiology feels appropriate. Discussed operation risks goals and alternatives again with the patient and his . Face to face time 15 minutes greater than 50% in consultation. documented in this encounter Nursing Notes Najma Clark CMA - 01/05/2017 11:45 AM CDT Chief Complaint Patient presents with ??? RECHECK discuss carotid endarterectomy Initial BP 122/68 (BP Location: Right arm, Cuff Size: Adult Large) Pulse (!) 49 Ht 6' 2 (1.88 m) Wt 260 lb (117.9 kg) SpO2 97% BMI 33.38 kg/m2 Estimated body mass index is 33.38 kg/(m^2) as calculated from the following: Height as of this encounter: 6' 2 (1.88 m). Weight as of this encounter: 260 lb (117.9 kg). Medication Reconciliation: complete Najma Clark CMA documented in this encounter Plan of Treatment Not on filedocumented as of this encounter Visit Diagnoses Diagnosis Carotid stenosis, left - Primary Occlusion and stenosis of carotid artery without mention of cerebral infarction documented in this encounter Care Teams Sales Commissions Analyst Relationship Specialty Start Date End Date Supa Reyes PCP - General Family Practice 10/21/16 08/18/21 [place] [id number] documented as of this encounter
--- OUTSIDE RECORDS SUMMARY | 2022-06-14 08:38 | XMS_ITS | Encounter Summary ---
:1950 Author Organization [facility] Address [address] [facility] [place] [address] Care Team Providers Name Role Phone Supa Reyes Primary Care Provider Reason for Visit (Routine) - Closed Specialty Diagnoses / Procedures Referred By Contact Refer red To Contact Radiology / Radiology. Procedures Rh Ct Scan cc CT NECK ANGIO WWO [address] [place] [address] Phone: Fax: Referral ID Status Reason Start Date Expiration Date Visits Requ ested Visits Authorized [id number] Closed 11/01/2016 10/28/2017 1 1 Encounter Details Date Type Department Care Team Description 11/01/2016 Hospital Encounter [facility] Bennett rotid artery [facility] Chen[place] stenosis [address] [place] [id number] Social History Tobacco Use Types Packs/Day Years Used Date Smoking Tobacco: Former Alcohol Use Standard Drinks/Week Comments Yes 0 (1 standard drink = 0.6 oz pure alcoho l) Sex Assigned at Date Recorded Male 09/01/2020 5:20 PM [employer] documented as of this encounter Medications at Time of Discharge Medication Sig Dispensed Refills Start Date End Date ATORVASTATIN CALCIUM PO Take 20 mg by mouth 0 09/01/2021 At Bedtime ASPIRIN PO Take 81 mg by mouth 0 01/28 Reported on 12/01/2016 CIPROFLOXACIN PO Take 250 mg by mouth 0 01/28/2017 Reported on 12/01/2016 FINASTERIDE PO Take 5 mg by mouth 0 Reported on 12/01/2016 LISINOPRIL PO Take 5 mg by mouth 0 every evening Reported on 12/01/2016 oxybutynin (DITROPAN-XL) Take 5 mg by mouth 2 0 01/28/2017 5 MG 24 hr tablet times daily Reported on 12/01/2016 TAMSULOSIN HCL PO Take 0.4 mg by mouth 0 01/28/2017 2 times daily Reported on 12/01/2016 documented as of this encounter Plan of Treatment Not on filedocumented as of this encounter Procedures Procedure Name Priority Date/Time Associated Diagnosis Comme nts CTA NECK WITH Routine 11/01/2016 9:23 AM Carotid artery Result s for this CONTRAST CDT stenosis procedure are i n the results section. documented in this encounter Results CTA Angiogram Neck (11/01/2016 9:23 AM CDT) Anatomical Region Laterality Modality Neck, SUBRAD CT NEURO, SUBRAD CT NEURO, UMP CT NEURO Computed Tomography Specimen (Source) Anatomical Location Collection Method / Collectio n Time Received Time / Laterality Volume Impressions 11/01/2016 1:14 PM CDT IMPRESSION: 70% short segment stenosis at the origin of the left internal carotid artery. MORRO BUI MD Narrative 11/01/2016 1:14 PM CDT CTA ANGIOGRAM NECK 11/01/2016 9:23 AM HISTORY: Left carotid stenosis. Occlusio n and stenosis of unspecified carotid artery. TECHNIQUE: Axial images were obtained th rough the neck without and with intravenous contrast. 70 mL of Isov ue-370 was given. Multiplanar reconstructions were performed. 3-D mino nstructions off a remote workstation for CT angiography were also acquired. Carotid stenoses were evaluated by comparing the caliber of the proximal internal carotid artery to the caliber of the dis geoff internal carotid artery. Radiation dose for this scan was reduced using automated exposure control, adjustment of the mA and/or kV according to patient size, or iterative reconstruction technique.. FINDINGS: Brachiocephalic vessels: Normal. Right carotid system: Minimal plaque. No stenosis. Left carotid system: Moderate plaque is present resulting in 70% short segment stenosis of the proximal right i nternal carotid artery at its origin. This is best appreciated on the coronal reformatted images which show the maximum degree of stenosi s. There is also slightly diminished caliber of the distal interna l carotid artery due to the high-grade stenosis. Right vertebral artery: Normal. Left vertebral artery: Normal. Other findings: None. Procedure Note Morro Bui MD - 11/01/2016Form atting of this note might be different from the original. CTA ANGIOGRAM NECK 11/01/2016 9:23 AM HISTORY: Left carotid stenosis. Occlusio n and stenosis of unspecified carotid artery. TECHNIQUE: Axial images were obtained th rough the neck without and with intravenous contrast. 70 mL of Isov ue-370 was given. Multiplanar reconstructions were performed. 3-D mino nstructions off a remote workstation for CT angiography were also acquired. Carotid stenoses were evaluated by comparing the caliber of the proximal internal carotid artery to the caliber of the dis geoff internal carotid artery. Radiation dose for this scan was reduced using automated exposure control, adjustment of the mA and/or kV according to patient size, or iterative reconstruction technique.. FINDINGS: Brachiocephalic vessels: Normal. Right carotid system: Minimal plaque. No stenosis. Left carotid system: Moderate plaque is present resulting in 70% short segment stenosis of the proximal right i nternal carotid artery at its origin. This is best appreciated on the coronal reformatted images which show the maximum degree of stenosi s. There is also slightly diminished caliber of the distal interna l carotid artery due to the high-grade stenosis. Right vertebral artery: Normal. Left vertebral artery: Normal. Other findings: None. IMPRESSION: 70% short segment stenosis a t the origin of the left internal carotid artery. MORRO BUI MD Wayne Bennett MD IMG CT ORDERABLES documented in this encounter Visit Diagnoses Diagnosis Carotid artery stenosis Occlusion and stenosis of carotid artery without mention of cerebral infarction documented in this encounter Administered Medications Inactive Administered Medications - up to 3 most recent administrations Medication Order MAR Action Action Date Dose Rate Site 0.9% sodium chloride BOLUS New Bag 11/01/2016 9:13 AM CDT 80 mLs Intravenous, 1,000 mL, ONCE, On 11/01/16 at 0915, For 1 dose iopamidol (ISOVUE-370) solution 500 mL Given 11/01/2016 9:13 AM CDT 70 mLs 500 mL, Intravenous, ONCE, On 11/01/16 at 0915, For 1 dose documented in this encounter Care Teams [employer] Relationship Specialty Start Date End Date Supa Reyes PCP - General Family Practice 10/21/16 08/18/21 [place] [id number] documented as of this encounter
--- OUTSIDE RECORDS SUMMARY | 2022-06-14 08:38 | XMS_ITS | Encounter Summary ---
:1950 Author Organization [facility] Address [address] [place] [address]. [place] [address] Care Team Providers Name Role Phone Supa Reyes Primary Care Provider Reason for Visit Auth/Cert Specialty Diagnoses / Procedures Referred By Contact Refer red To Contact Surgery Diagnoses CAROTID STENOSIS Sh Periop Services Procedures ENDARTERECTOMY CAROTID [address], [address] [place] [phone] Phone: Referral ID Status Reason Start Date Expiration Date Visits Requ ested Visits Authorized [id number] 1 Encounter Details Date Type Department Care Team Description 01/28/2017 - Hospital Encounter [facility] Wayne Faith rotid stenosis, 01/29/2017 Dianne Paiz MD left (Primary Dx) Intermediate Care [address] [place] [id number] [place] [phone] [id number] Social History Tobacco Use Types Packs/Day Years Used Date Smoking Tobacco: Former Cigarettes Quit : 08/08/1990 Alcohol Use Standard Drinks/Week Comments Yes 0 (1 standard drink = 0.6 oz pure alcoho l) 5 / week Sex Assigned at Date Recorded Male 09/01/2020 5:20 PM [employer] documented as of this encounter Last Filed Vital Signs Vital Sign Reading Time Taken Comments Blood Pressure 115/67 01/29/2017 7:00 AM CDT Pulse - - Temperature 36.4 ??C (97.5 ??F) 01/29/2017 7:00 AM CDT Respiratory Rate 16 01/29/2017 7:00 AM CDT Oxygen Saturation 97% 01/29/2017 7:00 AM CDT Inhaled Oxygen Concentration - - Weight 117.9 kg (259 lb 14.8 oz) 01/29/2017 6:56 AM CDT bed Height 188 cm (6' 2) 01/28/2017 10:41 AM CDT Body Mass Index 33.37 01/28/2017 10:41 AM CDT documented in this encounter Discharge Summaries Celeste Agarwal PA-C - 01/29/2017 12:25 PM CDT Vascular Surgery Discharge Summary Blas Buitrago Date of : 1950 Age: [age] year old Date of Admission: 01/28/2017 Date of Discharge: 01/29/2017 12:25 PM Admitting Physician: Wayne Faith MD Discharging Service: [facility] Vascular Surgery Primary Provider: Supa Reyes Discharge Diagnosis: Principle Diagnosis: Carotid stenosis, left Secondary Diagnosis: Hyperlipidemia Hypertension Atrial Fibrillation Procedures: Left carotid endarterectomy Brief HPI: Blas Buitrago is a 66 year old year-old male who presented to [facility] for elective Left carotid endarterectomy for asymptomatic carotid stenosis. Hospital Course: Blas Buitrago was admitted following surgery with high acuity monitoring parameters until post op day 1. There were no new neurologic deficits. Diet was advanced as tolerated was the patient was awake and alert. Pain was relieved using oral narcotics which he tolerated well. His hospital course remained uncomplicated and he recovered as anticipated. He will follow-up with [facility] in one to two weeks and was advised to call with any questions or concerns. Inpatient Consultations: Vascular Medicine Labs/Imaging: None during admission Disposition: Discharged to home Discharge Condition Discharge condition: Stable Discharge vitals: Blood pressure 115/67, temperature 97.5 ??F (36.4 ??C), temperature source Oral, resp. rate 16, height 1.88 m (6' 2), weight 117.9 kg (259 lb 14.8 oz), SpO2 97 %. Discharge Medications: Discharge Medication List as of 01/29/2017 11:32 AM START taking these medications Details aspirin EC 81 MG EC tablet Take 1 tablet (81 mg) by mouth daily, OTC CONTINUE these medications which have NOT CHANGED Details Rivaroxaban (XARELTO PO) Take 20 mg by mouth every evening, Historical SOTALOL HCL PO Take 80 mg by mouth 2 times daily, Historical triamcinolone (KENALOG) 0.1 % cream Apply topically 2 times dailyHistorical ATORVASTATIN CALCIUM PO Take 20 mg by mouth At Bedtime , Historical LISINOPRIL PO Take 5 mg by mouth every evening Reported on 12/01/2016, Historical Discharge Instructions: Your activity upon discharge: No driving for one week or while taking narcotic pain medication. No heavy lifting (nothing over 10 pounds), no pulling or pushing (no vacuuming) for 2 weeks. You may shower as normal. No tub bathing, swimming, or submersion in water. Follow up with Dr. Faith at the [facility] in 2 weeks. Call [phone] with any questions or to schedule an appointment. Celeste Agarwal PA-C Office: [phone] Associated attestation - Wayne Faith MD - 2017 11:32 AM CDT Physician Attestation I, Wayne Faith, have reviewed and discussed with the advanced practice provider their discharge plan for Blas Buitrago. I did not participate in a shared visit by interviewing or examining the patient and this should be billed as an advanced practice provider only discharge. Wayne Fatih Date of Service (when I saw the patient): I did not personally see this patient today. documented in this encounter Discharge Instructions Discharge InstructionsAbad Ascencio RN - 01/29/2017 11:32 AM CDT Carotid Endartectomy Post-Operative Instructions Typical length of stay in the hospital is 1-2 days. On occasion, an evening in the Intensive Care Unit may be required for blood pressure regulation. Activity ??? Most people are able to resume normal activities 1-2 weeks after surgery. The styles is to gradually increase your level of activity as you are able. It is not uncommon to feel easily fatigued - this will improve with time. ??? You should avoid heavy lifting more than 30 lbs for 1 week. ??? You may return to work when you feel able - typically 1-2 weeks after surgery, depending on the type of work you do. ??? You should not drive a car for 1 week after surgery. In addition, you can not be taking prescription strength pain medication and you must feel strong enough to drive safely. Incision Care ??? You can shower or bathe 2 days after surgery - avoid rubbing and soaking your incision. ??? You may have strips of white tape called ???steri-strips?? across your incision; they should stay on for 5-7 days or until the ends start to curl up. You can then remove the steri-strips, or we will remove them at your post- operative appointment. ??? Avoid shaving directly over the incision for 2-3 weeks. Common Concerns ??? You may notice mild skin numbness on the side of your surgery in your neck, chin, face, and earlobe. This is due to nerve ???irritation?? and will gradually resolve over the next several months. Call our office if you experience any short-lasting episode of numbness or weakness affecting one side of your body. ??? Some bruising and firmness around you incision can be expected. This will soften and resolve over the next few weeks. You may notice that some discoloration spreads to an area lower than the incision, such as the shoulder, neck or upper chest. Likewise, swelling can occur near the incision or below the chin. Call our office if the swelling or bruising worsens, or if you have difficulty swallowing. Diet ??? You may resume a regular diet before you leave the hospital. You may find that it is best to trysmaller, more frequent meals until your appetite returns. Medications ??? You may be started on a blood thinner after surgery - typically Aspirin and / or Plavix. ??? You may be given a prescription for pain medication after surgery. If you need to have this refilled, please call your pharmacy where you had it filled. They will then call us for approval. Please do not call after hours for a refill on pain medication. Post-Operative Appointments ??? You need to see your surgeon in the clinic approximately 1-2 weeks after surgery. Post-operative appointment: Date: Time: Dr. ??? You will have an ultrasound test and evaluation with your surgeon 90 days (3 months) after surgery. ??? We will notify you by mail when you are due to schedule further ultrasound testing and evaluation; typically this is done annually. When You Should Call Our Office ??? Body aches, chills or temperature greater than 101 ??? Incision redness or drainage ??? Loss of vision in one eye ??? Loss of strength / weakness in one side of your body ??? Severe headache ??? Difficulty with speech ??? If you will be having an invasive procedure, such as a colonoscopy or dental work within one year of your surgery, you may need to take an antibiotic prior to the procedure if you had a Dacron patch with your surgery; please call us so we can assist you with this. Call our main number, , for assistance with any concerns or questions. Revised 12/2013 documented in this encounter Medications at Time of Discharge [...] times daily documented as of this encounter Progress Notes Juan Jose Adams MD - 01/29/2017 8:50 AM CDT [facility] Vascular Medicine Progress Note Assessment and Plan: 1. Asymptomatic high grade left carotid artery stenosis s/p left carotid endarterectomy 01/28/17 ?? Incision CDI Neuro intact Stable for discharge home ?? 2. Hyperlipidemia ?? His lipids are well controlled with an LDL of 66 on Lipitor 20 mg daily. He is therefore at goal andshould continue the same. ?? 3. Hypertension ?? BP contorlled ?? 4. Atrial Fibrillation Sotalol and Xarelto Interval History: doing well; no cp, sob, n/v/d, or abd pain. Review of Systems: The 10 point Review of Systems is negative other than noted in the HPI Medications: ??? atorvastatin (LIPITOR) tablet 20 mg 20 mg Oral At Bedtime ??? lisinopril (PRINIVIL/ZESTRIL) tablet 5 mg 5 mg Oral QPM ??? sotalol (BETAPACE) tablet 80 mg 80 mg Oral BID ??? sodium chloride (PF) 3 mL Intracatheter Q8H ??? metoprolol 5 mg Intravenous Q6H ??? aspirin EC 81 mg Oral Daily ??? HYDROmorphone Intravenous METAL DIE FINISHER ??? acetaminophen 975 mg Oral Q8H ??? rivaroxaban ANTICOAGULANT 20 mg Oral QPM Physical Exam: Patient Vitals for the past 24 hrs: BP Temp Temp src Heart Rate Resp SpO2 Height Weight 01/29/17 0700 115/67 97.5 ??F (36.4 ??C) Oral 51 16 97 % - - 01/29/17 0656 - - - - - - - 117.9 kg (259 lb 14.8 oz) 01/29/17 0600 128/76 - - 57 16 94 % - - 01/29/17 0400 107/58 97.6 ??F (36.4 ??C) Oral 51 16 97 % - - 01/29/17 0200 106/58 - - 52 14 92 % - - 01/29/17 0000 115/70 97.4 ??F (36.3 ??C) Oral 50 16 94 % - - 01/28/17 2200 120/68 - - 52 19 91 % - - 01/28/17 2100 126/74 - - 53 17 93 % - - 01/28/172054 - - - 50 16 93 % - - 01/28/172049 - - - 57 21 96 % - - 01/28/172044 - - - 54 12 96 % - - 01/28/17 2000 121/67 - - 48 14 93 % - - 01/28/171910 - 97.3 ??F (36.3 ??C) Axillary - - - - - 01/28/17 1900 127/79 - - 51 14 95 % - - 01/28/17 1830 126/68 - - 52 15 96 % - - 01/28/17 1640 - - - 49 9 98 % - - 01/28/17 1630 119/62 - - 49 12 99 % - - 01/28/17 1620 129/71 - - 49 10 95 % - - 01/28/17 1610 127/67 - - 47 11 96 % - - 01/28/17 1600 126/67 - - 50 10 97 % - - 01/28/17 1550 115/63 98 ??F (36.7 ??C) Temporal 48 12 98 % - - 01/28/17 1540 111/60 - - 51 16 95 % - - 01/28/17 1530 123/64 - - 51 12 95 % - - 01/28/17 1520 129/62 - - 50 12 100 % - - 01/28/17 1510 129/67 - - 51 12 100 % - - 01/28/17 1500 120/67 - - 53 9 100 % - - 01/28/17 1450 127/70 97.2 ??F (36.2 ??C) Temporal - 20 100 % - - 01/28/17 1200 161/78 - - 46 14 98 % - - 01/28/17 1156 134/65 - - 49 12 97 % - - 01/28/17 1041 151/88 97 ??F (36.1 ??C) Temporal 48 16 98 % 1.88 m (6' 2) 119.7 kg (264 lb) Wt Readings from Last 4 Encounters: 01/29/17 117.9 kg (259 lb 14.8 oz) 01/05/17 117.9 kg (260 lb) 12/01/16 117.9 kg (260 lb) 10/27/16 117.9 kg (260 lb) Intake/Output Summary (Last 24 hours) at 01/29/17 0851 Last data filed at 01/29/17 0600 Gross per 24 hour Intake 3781 ml Output 800 ml Net 2981 ml Constitutional: normal Eyes: normal ENT: normal Neck: incision CDI Hematologic / Lymphatic: normal Back: normal Lungs: No increased work of breathing, good air exchange, clear to auscultation bilaterally, no crackles or wheezing. Cardiovascular: Regular rate and rhythm, normal S1 and S2, no S3 or S4, and no murmur noted. Chest / Breast: normal Abdomen: normal Genitourinary: normal Musculoskeletal: normal Neurologic: CN intact Neuropsychiatric: normal Skin: normal Data: Results for orders placed or performed during the hospital encounter of 01/28/17 (from the past 24 hour(s)) Basic metabolic panel Result Value Ref Range Sodium 139 133 - 144 mmol/L Potassium 4.4 3.4 - 5.3 mmol/L Chloride 109 94 - 109 mmol/L Carbon Dioxide 25 20 - 32 mmol/L Anion Gap 5 3 - 14 mmol/L Glucose 114 (H) 70 - 99 mg/dL Urea Nitrogen 18 7 - 30 mg/dL Creatinine 1.04 0.66 - 1.25 mg/dL GFR Estimate 71 >60 mL/min/1.7m2 GFR Estimate If Black 86 >60 mL/min/1.7m2 Calcium 8.7 8.5 - 10.1 mg/dL Lipid panel Result Value Ref Range Cholesterol 164 <200 mg/dL Triglycerides 84 <150 mg/dL HDL Cholesterol 81 >39 mg/dL LDL Cholesterol Calculated 66 <100 mg/dL Non HDL Cholesterol 83 <130 mg/dL Hemoglobin A1c Result Value Ref Range Hemoglobin A1C 5.7 4.3 - 6.0 % ABO/Rh type and screen Result Value Ref Range ABO A RH(D) Neg Antibody Screen Neg Test Valid Only At [facility] Specimen Expires 01/31/2017 Hemoglobin Result Value Ref Range Hemoglobin 17.5 13.3 - 17.7 g/dL Glucose by meter Result Value Ref Range Glucose 142 (H) 70 - 99 mg/dL Andres Dutton RN - 01/28/2017 4:13 PM CDT Telephone report given to [facility] [address] RN. Patient will be transported to [facility] via cart accompanied by RN and NA. Belongings: 1 hospital bag. Family : re- updated regarding delay of transport Andres Dutton RN - 01/28/2017 3:45 PM CDT Patient's Kristan was updated. Andres Dutton RN - 01/28/2017 3:34 PM CDT Assume patient care at 15:00. Verbal report received from Chayito CABRAL. Nunu Dumas - 01/28/2017 3:20 PM CDT Left carotid Endarterectomy with EEG monitoring completed. EEG# [id number], Ordering Dr. Malinda Faith. Went well, patient moved all extremities upon waking up. Zelda Moya - 01/28/2017 10:17 AM CDT Admission medication history interview status for the 01/28/2017 admission is complete. See [facility] admission navigator for prior to admission medications Medication history source reliability:Good Medication history interview source(s):Patient Medication history resources (including written lists, pill bottles, clinic record):None Primary pharmacy.[facility] Additional medication history information not noted on ADVERTISING VICE PRESIDENT med list :None Time spent in this activity: 45 minutes Prior to Admission medications Medication Sig Last Dose Taking? Auth Provider Rivaroxaban (XARELTO PO) Take 20 mg by mouth every evening Yes Reported, Patient SOTALOL HCL PO Take 80 mg by mouth 2 times daily 01/28/2017 at 0630 Yes Reported, Patient triamcinolone (KENALOG) 0.1 % cream Apply topically 2 times daily 01/27/2017 at pm Yes Reported, Patient ATORVASTATIN CALCIUM PO Take 20 mg by mouth At Bedtime 01/27/2017 at 2100 Yes Reported, Patient LISINOPRIL PO Take 5 mg by mouth every evening Reported on 12/01/2016 01/26/2017 at 1830 Reported, Patient documented in this encounter Procedure Notes Jarocho Steele MD - 01/28/2017 5:00 PM CDTProcedure(s): EEG ENDARTERECTOMY CAROTID ENDARTERECTOMY ENCEPHALOGRAPHIC MONITORING ? SURGEON: Malinda Faith MD ? [facility] EEG # [id number] LEFT CAROTID ? NAME: Blas Buitrago ? Surgery performed on 01/28/17 for left carotid stenosis. ? The baseline wake recording and anesthetic patterns were symmetric. There was slowing and attenuation of the activity on the left with occlusion. The EEG returned to its baseline appearance with shunting. There was slowing and attenuation on the left with occlusion when the shunt was removed. The EEG r eturned to its baseline appearance with muslim of flow. ? IMPRESSION: The study indicates that collateral flow is inadequate during the acute period of occlusion that was corrected with shunt insertion. ? JAROCHO STEELE MD, PHD, FASUNDEEP ? JAROCHO STEELE MD, PHD, FAHA documented in this encounter Consult Notes Dania Raymond MD - 01/28/2017 3:07 PM CDT [facility] Vascular Medicine Consultation Date of Admission: 01/28/2017 Date of Consult (When I saw the patient): 01/28/17 Physician Supervisory Attestation: I have reviewed and discussed with the physician enrichment assistant their history, physical and plan and independently interviewed and examined Blas Buitrago and agree with the plan as stated in the physician enrichment assistant note. This is a very pleasant male with Hx of STM loss for several hours in october 2016 hospitalized in [place] . CT head negatve but MRI showed >65 % LICA stenosis seen by dr Faith , carotid US left side PSV 453 with 80-99 % stenosis followed by CTA neck >70 % Short segment stenosis and modertae plaque noted. Meanwhile he developed Afib/flutter after prostate surgery underwent ablation then started Xarelto and this was held 2 days ago. He is on sotolol, rate well controlled. He was seen before surgery today. Heart: RRR Lungs: CTA Abd: soft, positive BS Plan: Post op cares and activity per [facility] surgery Monitor neuro status Restart xarelto same dose 20 mg daily with supper once cleared by vascular surgery after 24-48 hours Tight control of BP keep under 140 SBP, use IV labetalol if needed Continue out patient meds,statin, lisinopril and sotolol. Telemetry monitoring ( watch for QT interval) . Thank you for the consult Cc: Dr. Sabrina MD Primary care physician Dania Raymond MD,[facility] Vascular Medicine service. 01/28/2017 Assessment & Plan 1. Asymptomatic high grade left carotid artery stenosis s/p left carotid endarterectomy 01/28/17 Post-operative cares per Dr. Faith / Vascular Surgery. He can resume his Xarelto for his atrial fibrillation. 2. Hyperlipidemia His lipids are well controlled with an LDL of 66 on Lipitor 20 mg daily. He is therefore at goal andshould continue the same. 3. Hypertension He will be continued on his prior to admission anti-hypertensives and his blood pressure will be monitored closely. He can be covered with IV labetalol for any elevated blood pressures of an SBP > 160. 4. Atrial Fibrillation He has been maintained as an outpatient on Sotalol and Xarelto. He can resume these when felt safe to do so by Vascular Surgery. He will be monitored on telemetry. Reason for Consult Reason for consult: Asked by Dr. Faith to evaluate vascular risk factors and assist with medical management in this 66 year old male non-smoker, non-diabetic with hyperlipidemia and atrial fibrillation who is s/p left carotid endarterectomy for asymptomatic high-grade carotid stenosis. Primary Care Physician Supa Reyes History of Present Illness Blas Buitrago is a 66 year old male non-smoker, non-diabetic with hyperlipidemia and atrial fibrillation who was hospitalized a few months ago with an episode of short-term memory loss. His head CT was negative and an MRI showed 65% left carotid stenosis. He had no neurologic deficits. He was then seenin consultation by Dr. Faith where an ultrasound of his left carotid artery was significant for 80-99% stenosis. A CTA was then obtained, confirming 70% stenosis of the left carotid artery with moderate plaque. A left carotid endarterectomy was recommended, but before that could be done he had prostate surgery and went into atrial fibrillation, which needed to be dealt with first. He has now been stable and presented for a left carotid endarterectomy today. Past Medical History Past Medical History: Diagnosis Date ??? Arrhythmia ??? Arthritis osteoarthritis of knee and thumb ??? Hyperplastic colon polyp ??? Hypertension ??? Irregular heart beat atrial fibrillation ??? 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 ENT SURGERY tonsillectomy ??? H OR CATH ABLATION NON-CARDIAC ENDOVASCULAR OPNP ??? HERNIA REPAIR, INGUINAL RT/LT ??? open retopublic prostatectomy ??? SOFT TISSUE SURGERY ??? VASECTOMY Prior to Admission Medications Prior to Admission Medications Prescriptions Last Dose Informant Patient Reported? Taking? ATORVASTATIN CALCIUM PO 01/27/2017 at 2100 Self Yes Yes Sig: Take 20 mg by mouth At Bedtime LISINOPRIL PO 01/26/2017 at 1830 Self Yes No Sig: Take 5 mg by mouth every evening Reported on 12/01/2016 Rivaroxaban (XARELTO PO) 01/26/2017 Self Yes Yes Sig: Take 20 mg by mouth every evening SOTALOL HCL PO 01/28/2017 at 0630 Self Yes Yes Sig: Take 80 mg by mouth 2 times daily triamcinolone (KENALOG) 0.1 % cream 01/27/2017 at pm Self Yes Yes Sig: Apply topically 2 times daily Facility-Administered Medications: None Allergies No Known Allergies Social History Blas Buitrago reports that he quit smoking about 26 years ago. He does not have any smokeless tobaccohistory on file. He reports that he drinks alcohol. He reports that he does not use illicit drugs. Family History Family History Problem Relation Age of Onset ??? Breast Cancer Mother ??? Colon Cancer Mother ??? Hypertension Father ??? Other Cancer Paternal Grandmother ??? CEREBROVASCULAR DISEASE Paternal Grandfather Review of Systems The 10 point Review of Systems is negative other than noted in the HPI or here. Physical Exam Temp: 97 ??F (36.1 ??C) Temp src: Temporal BP: 161/78 Heart Rate: 46 Resp: 14 SpO2: 98 % O2 Device: Nasal cannula Oxygen Delivery: 3 LPM Vital Signs with Ranges Temp: [97 ??F (36.1 ??C)] 97 ??F (36.1 ??C) Heart Rate: [46-49] 46 Resp: [12-16] 14 BP: (134-161)/(65-88) 161/78 SpO2: [97 %-98 %] 98 % 264 lbs 0 oz Constitutional: awake, alert, cooperative, no apparent distress, and appears stated age Eyes: Lids and lashes normal, pupils equal, round and reactive to light, extra ocular muscles intact, sclera clear, conjunctiva normal ENT: normocepalic, without obvious abnormality, oropharynx pink and moist Hematologic / Lymphatic: no lymphadenopathy Respiratory: No increased work of breathing, good air exchange, clear to auscultation bilaterally, no crackles or wheezing Cardiovascular: Irreg irreg GI: Normal bowel sounds, soft, non-distended, non-tender Skin: no redness, warmth, or swelling, no rashes and no lesions Musculoskeletal: There is no redness, warmth, or swelling of the joints. Full range of motion noted.Motor strength is 5 out of 5 all extremities bilaterally. Tone is normal. Neurologic: Awake, alert, oriented to name, place and time. Cranial nerves II- XII are grossly intact. Motor is 5 out of 5 bilaterally. Neuropsychiatric: Normal affect, memory, insight. Pulses: Palpable pedal pulses. Data Most Recent 3 CBC's: Recent Labs Lab Test 01/28/17 1026 HGB 17.5 Most Recent 3 BMP's: Recent Labs Lab Test 01/28/17 1026 NA 139 POTASSIUM 4.4 CHLORIDE 109 CO2 25 BUN 18 CR 1.04 ANIONGAP 5 ELLEN 8.7 GLC 114* Most Recent Cholesterol Panel: Recent Labs Lab Test 01/28/17 1026 CHOL 164 LDL 66 HDL 81 TRIG 84 Most Recent Hemoglobin A1c: Recent Labs Lab Test 01/28/17 1026 A1C 5.7 documented in this encounter Miscellaneous Notes Plan of Care - Abad Ascencio RN - 01/29/2017 12:25 PM CDT Problem: Goal Outcome Summary Goal: Goal Outcome Summary Outcome: Adequate for Discharge Date Met: 01/29/17 Pt A/Ox4. Denies pain. Dressing CDI. Neuros intact. Reviewed AVS with pt. Answered all questions. Ptleft with all belongings. Plan of Care - Michelle Baird RN - 01/29/2017 5:24 AM CDT Problem: Goal Outcome Summary Goal: Goal Outcome Summary Outcome: Improving VSS and neuros intact. Voiding per urinal. Ambulated in jimenez x1, tolerated well. METAL DIE FINISHER and scheduled tylenol effective for pain. Plan of Care - Sherman Cui RN - 01/28/2017 10:33 PM CDT Problem: Goal Outcome Summary Goal: Goal Outcome Summary Outcome: Improving VSS except Bradycardic. A/O. SBA. Dangled by bedside.Bedrest overnight. L neck incision CDI. Neuros intact. METAL DIE FINISHER for pain. Voiding fine. Tolerating clears. Tele sinus maurilio c occasional PAC. Called vascular regarding sotalol schedule (bradycardic). Order to hold now and cont to monitor. Op Note - Wayne Faith MD - 01/28/2017 4:42 PM CDT DATE OF PROCEDURE: 01/28/2017 PREOPERATIVE DIAGNOSIS: High-grade stenosis left internal carotid artery. POSTOPERATIVE DIAGNOSIS: High-grade stenosis left internal carotid artery. PROCEDURE: Left carotid thromboendarterectomy with Dacron patch angioplasty. ADJUNCT FACULTY FOR MEDICAL TERMINOLOGY: CELESTE AGARWAL PA-C DESCRIPTION OF PROCEDURE: Under satisfactory general anesthesia, the left neck was prepped and draped in routine sterile fashion. A longitudinal incision was made along the anterior border of the left sternocleidomastoid muscle and the platysma was divided using electrocautery. Dissection was sharply carried down to the common carotid artery at the level of the omohyoid muscle. The carotid sheath wassharply opened. The common carotid artery was isolated using sharp and blunt dissection and encircled with a vessel loop. Dissection was then carried up along the anterior surface of the carotid arteryto its bifurcation. Venous tributaries to internal jugular system were clamped, divided and ligated with interrupted ties of 2-0 and 3-0 silk. The superior thyroid and external carotid arteries were isolated using sharp and blunt dissection and encircled with vessel loops. We did block the carotid body with 1% Xylocaine. The internal carotid artery was then freed up for several centimeters beyond thebifurcation using sharp and blunt dissection. Blas Buitrago was systemically heparinized with 5000 units of IV heparin. Assistance in this case was required for help with exposure of vessels control of bleeding, placement of our shunt as well as assistance with a Dacron patch angioplasty. The internal carotid, external carotid and common carotid arteries were occluded. The common carotid artery was opened in a longitudinal arteriotomy. The arteriotomy was carried up onto the internal carotid artery forapproximately 3 cm. The patient had a very high-grade stenosis proximal internal carotid artery thatI would estimate at greater than 80%. A Sundt shunt was then placed in the usual fashion and flow was restored to the left cerebral hemisphere. Atheromatous plaque was endarterectomized to the level ofthe common carotid artery and transected. The endarterectomy was then carried up to the carotid bifurcation. The external carotid artery was endarterectomized using eversion technique over approximately 5 mm. The endarterectomy was then carried up along the internal carotid artery to a level that the plaque began to thin out posteriorly. At this level the intima was sharply divided and specimen was removed en bloc. There was a shallow intimal flap left distally which was tacked down with interruptedsutures of 7-0 Prolene. The endarterectomized segment was thoroughly washed with dilute heparinized s jennifer solution and all loose debris was removed. The arteriotomy was then closed with a Dacron patch. This was cut to size and fixed in place circumferentially in the internal carotid artery with a running suture of 7-0 Prolene and in the common carotid artery with a running suture of 6-0 Prolene. Prior to completion of the patch angioplasty, the Sundt shunt was removed. The internal carotid, external carotid and common carotid arteries were all flushed. The endarterectomized segment was again washed with dilute heparinized saline solution and closure of the patch angioplasty was completed. Flow was then restored up through the external carotid artery for several beats and then up through the internal carotid artery. The wound was irrigated out with saline solution and checked for hemostasis. Thewound was then closed in layers with interrupted sutures of 3-0 Vicryl. Skin was closed with 4-0 subcuticular Vicryl stitch. Sponge and needle counts were correct at the termination of the procedure. The patient tolerated the procedure well and was taken to the post- anesthetic recovery room in satisfactory condition. He was moving all extremities actively to command. He did undergo intraoperative EEGmonitoring throughout the case, and no significant changes were noted. WAYNE FAITH III, MD MT: [id number] Name: BLAS BUITRAGO Account: [id number] : 1950 Procedure Date: 01/28/2017 Document: [id number] Brief Op Note - Allison Husain MD - 01/28/2017 2:48 PM CDT [facility] Brief Operative Note Pre-operative diagnosis: CAROTID STENOSIS Post-operative diagnosis CAROTID STENOSIS Procedure: Procedure(s): LEFT CAROTID ENDARTERECTOMY WITH ELECTROENCEPHALOGRAM - Wound Class: I-Clean Surgeon: Wayne Faith MD Assistants(s): Allison Husain MD (Alex) Estimated blood loss: 25 ml Specimens: None Findings: The patient is neurologically intact at the end of the case Allison Husain MD (Alex) Vascular Surgery Fellow (i) Brief Op Note - Celeste Agarwal PA-C - 01/28/2017 2:17 PM CDT [facility] Brief Operative Note Pre-operative diagnosis: CAROTID STENOSIS Post-operative diagnosis High grade asymptomatic left carotid stenosis Procedure: Procedure(s): LEFT CAROTID ENDARTERECTOMY WITH DACRON PATCH ANGIOPLASTY, SHUNTING AND EEG MONITORING - Wound Class: I-Clean Surgeon(s): Surgeon(s) and Role: * Wayne Faith MD - Primary * Celeste Agarwal PA-C - Assisting Estimated blood loss: 25 mL Specimens: * No specimens in log * Findings: No apparent complications. Focal stenosis with soft plaque. Moved extremity on command at completion. Celeste Agarwal PA-C Office: [phone] Pager: [phone] documented in this encounter Plan of Treatment Not on filedocumented as of this encounter Procedures Procedure Name Priority Date/Time Associated Comments Diagnosis GLUCOSE BY METER Routine 01/29/2017 6:05 AM Resul ts for this CDT procedure are i n the results section. ENDARTERECTOMY, 01/28/2017 12:30 PM CAROTID STENOSIS CAROTID CDT LIPID PROFILE STAT 01/28/2017 10:26 AM Results for this CDT procedure are i n the results section. HEMOGLOBIN A1C STAT 01/28/2017 10:26 AM Result s for this CDT procedure are i n the results section. HEMOGLOBIN STAT 01/28/2017 10:26 AM Results for this CDT procedure are i n the results section. ABO/RH TYPE AND STAT 01/28/2017 10:26 AM Resul ts for this SCREEN CDT procedure are i n the results section. BASIC METABOLIC STAT 01/28/2017 10:26 AM Resul ts for this PANEL CDT procedure are i n the results section. EEG ROUTINE STAT 01/28/2017 10:19 AM CDT EEG - HIM SCAN 01/28/2017 12:00 AM CDT EKG CARDIAC - HIM 01/18/2017 12:00 AM SCAN CDT documented in this encounter Results (ABNORMAL) Glucose by meter (01/29/2017 6:05 AM CDT) P athologist Signature Glucose 142 (H) 70 - 99 POINT OF CARE mg/dL TEST, GLUCOSE Specimen Anatomical Collection Method Collection Time Receive d Time (Source) Location / / Volume Laterality 01/29/2017 6:05 AM 7 6:15 CDT AM CDT Wayne Faith MD [facility] Performing Organization Address City/State/ZIP Code Phon e Number FV POINT OF CARE TEST, GLUCOSE POINT OF CARE TEST, GLUCOSE Hemoglobin (01/28/2017 10:26 AM CDT) athologist Signature Hemoglobin 17.5 13.3 - 17.7 [place] g/dL [facility] Specimen Anatomical Collection Method Collection Time Receive d Time (Source) Location / / Volume Laterality Blood specimen 01/28/2017 10:26 7 (specimen) AM CDT 10:41 AM CDT Miky Lo LAB - BLOOD ORDERABLES Performing Organization Address City/State/ZIP Code Phon e Number M [facility] [address] [place] [address] [phone] [facility] [address] [place] [address], [place] [phone] ABO/Rh type and screen (01/28/2017 10:26 AM CDT) [facility] Method Time Signature ABO A [facility] RH(D) Neg [facility] Antibody Neg [place] Screen [facility] Test Valid [facility] HOSPITAL Specimen 01/31/2017 [place] [facility] Specimen Anatomical Collection Method Collection Time Receive d Time (Source) Location / / Volume Laterality Blood specimen 01/28/2017 10:26 7 (specimen) AM CDT 10:40 AM CDT Wayne Faith MD LAB - BLOOD BANK TEST ORDER Performing Organization Address City/[facility]/ZIP Code Phon e Number M [facility] [address] [place] [address] [facility] [address] [place] [address], [place] [phone] Hemoglobin A1c (01/28/2017 10:26 AM CDT) athologist Signature Hemoglobin A1C 5.7 4.3 - 6.0 [facility] Specimen Anatomical Collection Method Collection Time Receive d Time (Source) Location / / Volume Laterality Blood specimen 01/28/2017 10:26 7 (specimen) AM CDT 10:41 AM CDT Wayne Faith MD LAB - BLOOD ORDERABLES Performing Organization Address City/State/ZIP Code Phon e Kyle Machuca [facility] [address] [place] [address] [phone] [facility] [address] [place] [address], [place] [phone] Lipid panel (01/28/2017 10:26 AM CDT) Analysis Performed At Patho logist Time Signature Cholesterol 164 <200 mg/dL [facility] Triglycerides 84 <150 mg/dL [facility] HDL Cholesterol 81 >39 mg/dL [facility] LDL Cholesterol 66 <100 mg/dL [facility] Comment: Desirable: <100 mg/dl Non HDL Cholesterol 83 <130 mg/dL [facility] Specimen Anatomical Collection Method Collection Time Receive d Time (Source) Location / / Volume Laterality Blood specimen 01/28/2017 10:26 7 (specimen) AM CDT 10:41 AM CDT Wayne Faith MD LAB - BLOOD ORDERABLES Performing Organization Address City/State/ZIP Code Phon e Kyle Machuca [facility] [address] [place] [address] [facility] [address] [place] [address], [place] [phone] (ABNORMAL) Basic metabolic panel (01/28/2017 10:26 AM CDT) P athologist Signature Sodium 139 133 - 144 [place] mmol/L [facility] Potassium 4.4 3.4 - 5.3 [place] mmol/L [facility] Chloride 109 94 - 109 [place] mmol/L [facility] Carbon Dioxide 25 20 - 32 [place] mmol/L [facility] Anion Gap 5 3 - 14 [place] mmol/L [facility] Glucose 114 (H) 70 - 99 [place] mg/dL [facility] Urea Nitrogen 18 7 - 30 [place] mg/dL [facility] Creatinine 1.04 0.66 - [place] 1.25 mg/dL [facility] GFR Estimate 71 >60 [place] mL/min/1.[address] Comment: Non GFR Calc GFR Estimate If Black 86 >60 mL/min/1.7m2 [facility] Comment: GFR Calc Calcium 8.7 8.5 - 10.1 mg/dL [facility] Specimen Anatomical Collection Method Collection Time Receive d Time (Source) Location / / Volume Laterality Blood specimen 01/28/2017 10:26 7 (specimen) AM CDT 10:41 AM CDT Wayne Faith MD LAB - BLOOD ORDERABLES Performing Organization Address City/State/ZIP Code Phon e Number M [facility] [address] [place] [address] [facility] [address] [place] [address], [place] [phone] EEG - HIM SCAN (01/28/2017 12:00 AM CDT) Specimen (Source) Anatomical Location Collection Method / Collectio n Time Received Time / Laterality Volume 01/28/2017 Narrative This result has an attachment that is no t available. Provider Scan IP NEUROLOGY ORDERABLES EKG CARDIAC - HIM SCAN (01/18/2017 12:00 AM CDT) Specimen (Source) Anatomical Location Collection Method / Collectio n Time Received Time / Laterality Volume 01/18/2017 Narrative This result has an attachment that is no t available. Provider Outside ECG ORDERABLES documented in this encounter Visit Diagnoses Diagnosis Carotid stenosis, left - Primary Occlusion and stenosis of carotid artery without mention of cerebral infarction Carotid stenosis, left Occlusion and stenosis of carotid artery without mention of cerebral infarction documented in this encounter Administered Medications Inactive Administered Medications - up to 3 most recent administrations Medication Order MAR Action Action Date Dose Rate Site 0.9% sodium chloride infusion New Bag 01/28/2017 5:11 PM CDT 70 mL/hr at 70 mL/hr, Intravenous, CONTINUOUS, Saline lock when taking PO fluids., Post-procedure, Starting on 01/28/17 at 1715, Until 01/29/17 at 1425 acetaminophen (TYLENOL) tablet 975 mg Given 01/29/2017 4:44 AM CDT 975 mg 975 mg, Oral, EVERY 8 HOURS, First dose on Tue01/28/17 at 2200, For 3 days, Do not use if patient has an active opioid/acetaminophen analgesic order for pain Maximum acetaminophen dose from all sources = 75 mg/kg/day not to exceed 4 grams/day., Post-procedure aspirin Suppository 600 mg Given 01/28/2017 3:11 PM CDT 600 mg 600 mg, Rectal, ONCE, On Tue01/28/17 at 1500, For 1 dose, In recovery room., PACU atorvastatin (LIPITOR) tablet 20 mg Given 01/28/2017 9:46 PM CDT 20 mg 20 mg, Oral, AT BEDTIME, First dose on Tue01/28/17 at 2200 HYDROmorphone (DILAUDID) METAL DIE FINISHER 1 New Syringe/Cartridge 01/29/2017 6:37 AM CDT mg/mL METAL DIE FINISHER dose (mg): 0.2, Max METAL DIE FINISHER dose (mg): 0.3, Lockout Interval (min): 10 minutes, METAL DIE FINISHER Continuous Rate (mg/hr): CONTINUOUS RATE IS NOT RECOMMENDED FOR OPIOID NAIVE PATIENTS, Hour Limit (mg): 1.8, First dose on Tue01/28/17 at 1515, Do NOT give any additional opioids while on METAL DIE FINISHER. When transitioning from METAL DIE FINISHER to oral opioids MAY give first oral opioid dose 30 minutes PRIOR to discontinuation of METAL DIE FINISHER., Intravenous, Post-procedure New Syringe/Cartridge 01/28/2017 9:47 PM CDT New Syringe/Cartridge 01/28/2017 3:18 PM CDT lactated ringers infusion New Bag 01/28/2017 2:15 PM CDT at 25 mL/hr, Intravenous, CONTINUOUS, IF patient NOT on dialysis., Starting on Tue01/28/17 at 1030, Until Tue01/28/17 at 1705 New Bag 01/28/2017 11:04 AM CDT 25 mL/hr lidocaine 1 % 1 mL Given 01/28/2017 11:04 AM CDT 0.2 mLs 1 mL, Other, EVERY 1 HOUR PRN, mild pain with VAD insertion or accessing implanted port, Starting on Tue01/28/17 at 1019, Do NOT give if patient has a history of allergy to any local anesthetic or any rosario product. MAX dose 1 mL subcutaneous OR intradermal in divided doses. lisinopril (PRINIVIL/ZESTRIL) tablet 5 m g Given 01/28/2017 8:33 PM CDT 5 mg 5 mg, Oral, EVERY EVENING, First dose on Tue01/28/17 at 2000 midazolam (VERSED) injection 0.5-2 mg Given 01/28/2017 11:44 AM CDT 2 mg 0.5-2 mg, Intravenous, EVERY 1 MIN PRN, anxiety, Starting on Tue01/28/17 at 1028 ondansetron (ZOFRAN) injection 4 mg 4 mg, Intravenous, EVERY 6 HOURS PRN, nausea, vomiting , Administer over 2-5 Minutes, Starting on Tue01/28/17 at 1704, This is Step 1 of nausea and vomiting management. If nausea not resolved in 15 minutes, go t o Step 2 prochlorperazine (COMPAZINE). Irritant., Post-procedure ondansetron (ZOFRAN-ODT) ODT tab 4 mg 4 mg, Oral, EVERY 6 HOURS PRN, nausea, Starting on Tue01/28/17 at 1704, This is Step 1 of nausea and vomiting management . If nausea not resolved in 15 minutes, go to Step 2 prochlorperazine (COMPAZINE). Do not push through foil backing. Peel back foil and gently remove. Place on tongue immediately. A dministration with liquid unnecessary, Post-procedure prochlorperazine (COMPAZINE) injection 5 mg 5 mg, Intravenous, EVERY 6 HOURS PRN, na usea, vomiting, Starting on Tue01/28/17 at 1704, This is Step 2 of nausea and vomit ing management. If nausea not resolved in 15 minutes, give metoclopramide (REGLAN) if ordered (step 3 of nausea and vomiting management), Post-procedure prochlorperazine (COMPAZINE) tablet 5 mg 5 mg, Oral, EVERY 6 HOURS PRN, nausea, v omiting, Starting on Tue01/28/17 at 1704, This is Step 2 of nausea and vomiting management. If n ausea not resolved in 15 minutes, give metoclopramide (REGLAN) if ordered (step 3 of nausea and vomiting management), Post-procedure sodium chloride (PF) 0.9% PF flush 3 mL Given 01/29/2017 6:06 AM CDT 3 mLs 3 mL, Intracatheter, EVERY 8 HOURS, First dose on Tue01/28/17 at 1715, And Q1H PRN, to lock peripheral IV dormant line., Post-procedure documented in this encounter Active and Recently Administered Medications Times are shown in CDT. Scheduled Medication Order 01/27/2017 01/28/2017 01/29/2017 acetaminophen (TYLENOL) tablet 975 mg 21 47 (Not Given - Provider: Sherman Cui RN - Reason: Patient/family refused) 0444 (Given - Provider: Michelle Baird RN) 975 mg, Oral, EVERY 8 HOURS, First dose on Tue01/28/17 at 2200, For 3 days, Do not use if patient has an active opioid/acetaminophen analgesic order for pain Maximum acetaminophen dose from all sources = 75 mg/kg/day not to exceed 4 grams/day., Post-procedure aspirin EC EC tablet 81 mg 1146 (Not Given - Provider: Abad Ascencio RN - Reason: Patient/family refused) 81 mg, Oral, DAILY, First dose on Tue at 0900, Begin POD 1, Post-procedure aspirin Suppository 600 mg (COMPLETED) 1 511 (Given - Provider: Suellen Calle RN) 600 mg, Rectal, ONCE, Tue01/28/17 at 1500, For 1 dose, In re covery room., PACU atorvastatin (LIPITOR) tablet 20 mg 2146 (Given - Provider: Sherman Cui RN) 20 mg, Oral, AT BEDTIME, First dose on Tue01/28/17 at 2200 ceFAZolin sodium-dextrose (ANCEF) infusion 2 g (COMPLETED) 1105 (Handoff - Provider: Kimberley Serrano RN)1241 (Given - Provider: Yaz Gregg APRN CYBER SYSTEMS ADMINISTRATOR) 2 g, Intravenous, PRE-OP/PRE-PROCEDURE, Starting Tue01/28/17 at 1019, For 1 dose, Give first dose within 1 hour PRIOR to incision. If patient weight is greater than or equal to 120 kg increase dose to 3 g., Indications: Surgical Prophylaxis, Pre-procedure HYDROmorphone (DILAUDID) METAL DIE FINISHER 1 mg/mL 151 8 (New Syringe/Cartridge - Provider: Suellen Calle RN)2147 (New Syringe/Cartridge - Provider: Sherman Cui RN) 0637 (New Syringe/Cartridge - Provider: Michelle Baird RN) METAL DIE FINISHER dose (mg): 0.2, Max METAL DIE FINISHER dose (mg): 0 .3, Lockout Interval (min): 10 minutes, METAL DIE FINISHER Continuous Rate (mg/hr): CONTINUOUS RATE IS NOT RECOMMENDED FOR OPIOID NAIVE PATIENTS, Hour Limit (mg): 1.8, First dos e on Tue01/28/17 at 1515, Do NOT give an y additional opioids while on METAL DIE FINISHER. When transitioning from METAL DIE FINISHER to oral opioids MAY give first oral opioid dose 30 minutes PRIOR to discontinuation of METAL DIE FINISHER., Intravenous, Post-procedure lisinopril (PRINIVIL/ZESTRIL) tablet 5 mg 2032 (Given - Provider: Sherman Cui RN) 5 mg, Oral, EVERY EVENING, First dose on Tue01/28/17 at 2000 metoprolol (LOPRESSOR) injection 5 mg 0842 (Not Given - Provider: Abad Ascencio RN - Reason: Contraindicated) 5 mg, Intravenous, EVERY 6 HOURS, First dose on Tue01/29/17 at 0800, HOLD IF heart rate less than 65 beats per minute or Systolic Blood Pressure less than 130 mmHg, bronchospasm, on inotropic continuous infusions or being paced . Start POD 1. ADMINISTRATION: By slow IV push over at least 2 minutes or give by piggyback over 15-20 minutes if patient not appropriate for IV push administration. ASSESSMENT : Blood pressure and heart rate BEFORE a nd 10 minutes AFTER each dose x first 2 doses., Post-procedure rivaroxaban ANTICOAGULANT (XARELTO) tablet 20 mg 20 mg, Oral, EVERY EVENING, First dose on Tue01/29/17 at 2000 sodium chloride (PF) 0.9% PF flush 3 mL 171 (Not Given - Provider: Sherman Cui RN - Reason: IV Infusing) 06 (Given - Provider: Michelle Baird RN) 3 mL, Intracatheter, EVERY 8 HOURS, Firs t dose on Tue01/28/17 at 1715, And Q1H PRN, to lock peripheral IV dormant line., Post-procedure sotalol (BETAPACE) tablet 80 mg 2118 (No t Given - Provider: Sherman Cui RN - Reason: Other - Comment: order to hold) 1146 (Not Given - Provider: Abad Ascencio RN - Reason: Contraindicated - Comment: HR 51) 80 mg, Oral, 2 TIMES DAILY, First dose on Tue01/28/17 at 2100 Continuous Medication Order 01/27/2017 01/28/2017 01/29/2017 0.9% sodium chloride infusion 1711 (New Bag - Pr ovider: Sherman Cui, MARINANA) at 70 mL/hr, Intravenous, CONTINUOUS, Sa line lock when taking PO fluids., Post- procedure, Starting Tue01/28/17 at 1715, Until 01/29/17 at 1425 lactated ringers infusion (CANCELED) 110 4 (New Bag - Provider: Kimberley Serrano RN)1415 (New Bag - Provider: Melissa Abel APRN CYBER SYSTEMS ADMINISTRATOR)1456 (Anesthesia Volume Adjustment - Provider: Melissa Abel APRN CYBER SYSTEMS ADMINISTRATOR) at 25 mL/hr, Intravenous, CONTINUOUS, IF patient NOT on dialysis., Starting Tue01/28/17 at 1030, Until Tue01/28/17 at 1705 PRN Medication Order 01/27/2017 01/28/2017 01/29/2017 250mL NaCl/2,500 Units heparin (CANCELED) 1254 (Given - Provider: Wayne Faith MD - Comment: PRN) PRN, Starting Tue01/28/17 at 1254, Intra-procedure acetaminophen (TYLENOL) tablet 650 mg 650 mg, Oral, EVERY 4 HOURS PRN, other, surgical pain, Starting Tue01/31/17 at 0000, May give first dose 4 hours after last scheduled dose of acetaminophen. Maximum acetaminophen dose from all sources = 75 mg/kg/day not to exceed 4 grams/day., Post-procedure benzocaine-menthol (CHLORASEPTIC) 6-10 MG lozenge 1-2 lozenge 1-2 lozenge, Buccal, EVERY 1 HOUR PRN, s ore throat, without fever, Starting Tue01/28/17 at 1704, Post-procedure labetalol (NORMODYNE/TRANDATE) injection 10 mg 10 mg, Intravenous, EVERY 10 MIN PRN, hi gh blood pressure, Systolic Blood Pressure greater than 180 mmHg or Diastolic Blood Pressure greater than 90 mmHg., Administer over 1-2 Minutes, Starting 01/28 at 1704, Repeat or double dose every 10 minutes up to 300 mg cumulative dose., Post-procedure lidocaine (LMX4) cream Topical, EVERY 1 HOUR PRN, pain, with VA D insertion or accessing implanted port., Starting Tue01/28/17 at 1704, Do NOT give if patient has a history of allergy to any local anesthetic or any rosario pro duct. Apply 30 minutes prior to VAD inse rtion or port access. MAX Dose: 2.5 g (?? of 5 g tube), Post-procedure lidocaine (PF) (XYLOCAINE) 1 % injection (CANCELED) 1330 (Given - Provider: Wayne Faith MD - Comment: Injection) PRN, Starting Tue01/28/17 at 1330, Intra-procedure lidocaine 1 % 1 mL (CANCELED) 1104 (Given - Prov ider: Kimberley Serrano RN) 1 mL, Other, EVERY 1 HOUR PRN, mild pain with VAD insertion or accessing implanted port, Starting Tue01/28/17 at 1019, Do NOT give if patient has a history of allergy to any local anesthetic or any queta ne product. MAX dose 1 mL subcutaneous OR intradermal in divide d doses. lidocaine 1 % 1 mL 1 mL, Other, EVERY 1 HOUR PRN, mild pain with VAD insertion or accessing implanted port, Starting Tue01/28/17 at 1704, Do NOT give if patient has a history of allergy to any local anesthetic or any queta ne product. MAX dose 1 mL subcutaneous OR intradermal in divided doses., Post-procedure midazolam (VERSED) injection 0.5-2 mg (CANCELED) 1144 (Given - Provider: Kimberley Serrano RN) 0.5-2 mg, Intravenous, EVERY 1 MIN PRN, Starting Tue01/28/17 at 1028, anxiety naloxone (NARCAN) injection 0.1-0.4 mg 0.1-0.4 mg, Intravenous, EVERY 2 MIN PRN , opioid reversal, Starting Tue01/28/17 at 1704, For respiratory rate LESS than or EQUAL to 8. Partial reversal dose: 0.1 mg titrated q 2 minutes for Analgesia Si de Effects Monitoring Sedation Level of 3 (frequently drowsy, arousable, drifts to sleep during conversation).Full reversal dose: 0.4 mg bolus for Analgesia Side Effects Monitoring Sedation Level of 4 ( somnolent, minimal or no response to stimulation)., Post-procedu re ondansetron (ZOFRAN) injection 4 mg(Linked Group 1) 4 mg, Intravenous, EVERY 6 HOURS PRN, na usea, vomiting, Administer over 2-5 Minutes, Starting Tue01/28/17 at 1704, This is Step 1 of nausea and vomiting management. If nausea not resolved in 15 minutes, go to Step 2 prochlorperazine (COMPAZINE). Irritant., Post-proc edure ondansetron (ZOFRAN-ODT) ODT tab 4 mg(Linked Group 1) 4 mg, Oral, EVERY 6 HOURS PRN, nausea, S tarting Tue01/28/17 at 1704, This is Step 1 of nausea and vomiting management. If nausea not resolved in 15 minutes, go to Step 2 prochlorperazine (COMPAZINE). Do not push through foil backing. Peel oswaldo k foil and gently remove. Place on tongue immediately. Administration with liquid unnecessary, Post-procedure oxyCODONE (ROXICODONE) IR tablet 5-10 mg 5-10 mg, Oral, EVERY 4 HOURS PRN, modera te to severe pain, Starting Tue01/28/17 at 1704, Hold while on METAL DIE FINISHER or with regular IV opioid dosing. IF CrCl UNKNOWN start at lowest end of dosing range., Post-procedure prochlorperazine (COMPAZINE) injection 5 mg(Linked Group 2) 5 mg, Intravenous, EVERY 6 HOURS PRN, na usea, vomiting, Starting Tue01/28/17 at 1704, This is Step 2 of nausea and vomiting management. If nausea not resolved in 15 minutes, give metoclopramide (REGLAN) if ordered (step 3 of nausea and vomiting management), Post-pro cedure prochlorperazine (COMPAZINE) tablet 5 mg(Linked Group 2) 5 mg, Oral, EVERY 6 HOURS PRN, nausea, v omiting, Starting Tue01/28/17 at 1704, This is Step 2 of nausea and vomiting management. If nausea not resolved in 15 minutes, give metoclopramide (REGLAN) if ord ered (step 3 of nausea and vomiting management), Post-procedure sodium chloride (PF) 0.9% PF flush 3 mL 3 mL, Intracatheter, EVERY 1 HOUR PRN, l ine flush, for peripheral IV flush post IV meds, Starting Tue01/28/17 at 1704, Post-procedure sodium chloride 0.9% (bottle) irrigation (CANCELED) 1254 (Given - Provider: Wayne Faith MD) PRN, Starting Tue01/28/17 at 1254, Intra-procedure Linked Groups Order Group 1: ondansetron (ZOFRAN-ODT) ODT tab 4 mgJump to med 4 mg, Oral, EVERY 6 HOURS PRN, nausea, S tarting Tue01/28/17 at 1704
This is Step 1 of nausea and vomiting management. If nausea not resolved in 15 minutes, go to Step 2 proch lorperazine (COMPAZINE). Do not push thr ough foil backing. Peel back foil and gently remove. Place on tongue immediately. Administration with liquid unnecessary
Post-procedure Or ondansetron (ZOFRAN) injection 4 mgJump to med 4 mg, Intravenous, EVERY 6 HOURS PRN, na usea, vomiting, Administer over 2-5 Minutes, Starting Tue01/28/17 at 1704
This is Step 1 of nausea and vomiting management. If nausea not resolved in 15 minutes, go to Step 2 prochlorperazine (COMPAZINE). Irritant.
Post-procedure Group 2: prochlorperazine (COMPAZINE) injection 5 mgJump to med 5 mg, Intravenous, EVERY 6 HOURS PRN, na usea, vomiting, Starting Tue01/28/17 at 1704
This is Step 2 of nausea and vomiting management. If nausea not resolved in 15 minutes, give metoc lopramide (REGLAN) if ordered (step 3 of nausea and vomiting management)
Post-procedure Or prochlorperazine (COMPAZINE) tablet 5 mgJump to med 5 mg, Oral, EVERY 6 HOURS PRN, nausea, v omiting, Starting Tue01/28/17 at 1704
This is Step 2 of nausea and vomiting management. If nausea not resolved in 15 minutes, give metocloprami de (REGLAN) if ordered (step 3 of nausea and vomiting management)
Post-procedure documented in this encounter Care Teams Security Assurance Specialist Relationship Specialty Start Date End Date Supa Reyes PCP - General Family Practice 10/21/16 08/18/21 [place] [id number] documented as of this encounter
--- OUTSIDE RECORDS SUMMARY | 2022-06-14 08:38 | XMS_ITS | Encounter Summary ---
:1950 Author Organization [facility] Address [address] [place] [address]. [place] [address] Care Team Providers Name Role Phone Supa Reyes Primary Care Provider Encounter Details Date Type Department Care Team Description 10/27/[address] [facility] Mauricio Paiz MD stenosis (Primary Dx) 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
--- OUTSIDE RECORDS SUMMARY | 2022-06-14 08:38 | XMS_ITS | Encounter Summary ---
:1950 Author Organization [facility] Address On license of [facility] [place] [address] Care Team Providers Name Role Phone Supa Reyes Primary Care Provider Reason for Visit (Routine) - Closed Specialty Diagnoses / Procedures Referred By Contact Refer red To Contact Radiology / Procedures Rh Ultrasound cc Radiology. US CAROTID BILATERAL [address] [facility] [address] [place] [address] Phone: Fax: Referral ID Status Reason Start Date Expiration Date Visits Requ ested Visits Authorized [id number] Closed 10/21/2016 10/21/2017 1 1 Encounter Details Date Type Department Care Team Description 10/27/2016 Hospital Encounter [facility] Wayne Bennett rotid artery [place] Special[facility] MD [facility] [address] [address] [facility] [address] [place] [address] [place], [place] [phone] (Work) [phone] Social History Tobacco Use Types Packs/Day Years Used Date Smoking Tobacco: Former Alcohol Use Standard Drinks/Week Comments Yes 0 (1 standard drink = 0.6 oz pure alcoho l) Sex Assigned at Date Recorded 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 documented in this encounter Results US Carotid Bilateral (10/27/2016 9:59 AM CDT) Anatomical Region Laterality Modality Vascular, Head Ultrasound Specimen (Source) Anatomical Location Collection Method / Collectio n Time Received Time / Laterality Volume Impressions 10/27/2016 10:51 AM CDT IMPRESSION: Per sonographic criteria, there is a 0-15% stenosis in the right internal carotid artery and a 80-9 9% stenosis in the left internal carotid artery. Degree of stenosis measured relative to the diameter of the normal internal carotid artery per NASCET or NA SCET type criteria MARC TAVAREZ MD Narrative 10/27/2016 10:51 AM CDT US CAROTID BILATERAL 10/27/2016 9:59 AM HISTORY: 66-year-old male with a carotid artery stenosis detected on outside MR angiogram. COMPARISON: MR angiogram dated 10/10/2016. FINDINGS: Right side: On the grayscale images, plaque is ident ified in the proximal internal carotid artery. Spectral waveform analysis was performed . Peak systolic and diastolic velocities in the right internal carotid artery are 106 and 45 cm/s. Per sonographic criteria, degree of sten osis in the right internal carotid artery is 0-15%. Flow in the right vertebral artery is an tegrade. Left side: On the grayscale images, soft irregular plaque is identified at the carotid bifurcation extending into the i nternal and external carotid arteries. Spectral waveform analysis was performed . Peak systolic and diastolic velocities in the left internal carotid artery are 453 and 176 cm/s. Per sonographic criteria, degree of sten osis in the left internal carotid artery is 80-99%. Flow in the left vertebral artery is ant egrade. Procedure Note Marc Tavaerz MD - 10/27/2016F ormatting of this note might be different from the original. US CAROTID BILATERAL 10/27/2016 9:59 AM HISTORY: 66-year-old male with a carotid artery stenosis detected on outside MR angiogram. COMPARISON: MR angiogram dated 10/10/2016. FINDINGS: Right side: On the grayscale images, plaque is ident ified in the proximal internal carotid artery. Spectral waveform analysis was performed . Peak systolic and diastolic velocities in the right internal carotid artery are 106 and 45 cm/s. Per sonographic criteria, degree of sten osis in the right internal carotid artery is 0-15%. Flow in the right vertebral artery is an tegrade. Left side: On the grayscale images, soft irregular plaque is identified at the carotid bifurcation extending into the i nternal and external carotid arteries. Spectral waveform analysis was performed . Peak systolic and diastolic velocities in the left internal carotid artery are 453 and 176 cm/s. Per sonographic criteria, degree of sten osis in the left internal carotid artery is 80-99%. Flow in the left vertebral artery is ant egrade. IMPRESSION: Per sonographic criteria, th ere is a 0-15% stenosis in the right internal carotid artery and a 80-9 9% stenosis in the left internal carotid artery. Degree of stenosis measured relative to the diameter of the normal internal carotid artery per NASCET or NA SCET type criteria MARC TAVAREZ MD Wayne Bennett MD [facility] US ORDERABLES documented in this encounter Visit Diagnoses Diagnosis Carotid artery stenosis Occlusion and stenosis of carotid artery without mention of cerebral infarction documented in this encounter Care Teams Press Washer Relationship Specialty Start Date End Date Supa Reyes PCP - General Family Practice 10/21/16 08/18/21 [place] [address] documented as of this encounter
--- OUTSIDE RECORDS SUMMARY | 2022-06-14 08:38 | XMS_ITS | Encounter Summary ---
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 Pt had MRI head at [facility] 10/10/16, images requested (will come via mail). Pt has been scheduled for a consult with 10/27/16 with carotid US. Berna Cadena RN BSN documented in this encounter Plan of Treatment Not on filedocumented as of this encounter Results US Carotid Bilateral (10/27/2016 [...] artery is ant egrade. Procedure Note Marc Tavarez MD - 10/27/2016F ormatting of this note [...] criteria MARC TAVAREZ MD Wayne Bennett MD IMG US ORDERABLES documented in this encounter Visit Diagnoses Diagnosis Carotid artery stenosis - Primary Occlusion and stenosis of carotid artery without mention of cerebral infarction Carotid artery stenosis Occlusion and stenosis of carotid artery without mention of cerebral infarction documented in this encounter
--- OUTSIDE RECORDS SUMMARY | 2022-06-14 08:38 | XMS_ITS | Encounter Summary ---
:1950 Author Organization [place] Address [address] [place] [address]. [place] [address] Care Team Providers Name Role Phone Supa Reyes Primary Care Provider Reason for Visit Auth/Cert Specialty Diagnoses / Procedures Referred By Contact Refer red To Contact Surgery Diagnoses CAROTID STENOSIS Sh Periop Services Procedures ENDARTERECTOMY CAROTID [address] [place] [address] Phone: Referral ID Status Reason Start Date Expiration Date Visits Requ ested Visits Authorized [id number] 1 1 Encounter Details Date Type Department Care Team Description 01/28/2017 Surgery [facility] Wayne Faith LEFT CAR OTID ENDARTERECTOMY Alcidespelzer PeriOP MD [place] WITH ELECTROENCEPHALOGRAM Services [address] [place] [address] [place] [address] Surgery Details Date/Time Status Location OR Service Patient Case Class Case Tr auma Class Type Case? 01/28/17 12:00 Posted OR OR M 31 General Surgery PM Admit Panel 1 Procedure LRB Anes Op Region Wound Class Commen ts LEFT CAROTID Left General Neck I-Clean LEFT CAROTID ENDARTERECTOMY WITH ENDAR TERECTOMY WITH ELECTROENCEPHALOGRAM ELEC TROENCEPHALOGRAM Surgeon Surgeon Role Service Panel Wayne Faith MD Primary General 1 Celeste Agarwal V, PAJarekC Assisting County Treasurer Authorization 1 documented in this encounter Social History Tobacco Use Types Packs/Day Years Used Date Smoking Tobacco: Former Cigarettes Quit : 08/08/1990 Alcohol Use Standard Drinks/Week Comments Yes 0 (1 standard drink = 0.6 oz pure alcoho l) 5 / week Sex Assigned at Date Recorded 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 Last Filed Vital Signs Vital Sign Reading Time Taken Comments Blood Pressure 127/70 01/28/2017 2:50 PM CDT Pulse - - Temperature 36.2 ??C (97.2 ??F) 01/28/2017 2:50 PM CDT Respiratory Rate 20 01/28/2017 2:50 PM CDT Oxygen Saturation 100% 01/28/2017 2:50 PM CDT Inhaled Oxygen Concentration - - Weight 119.7 kg (264 lb) 01/28/2017 10:41 AM CDT Height 188 cm (6' 2) 01/28/2017 10:41 AM CDT Body Mass Index 33.37 01/28/2017 10:41 AM CDT documented in this encounter Discharge Summaries Celeste Agarwal PA-C - 01/29/2017 12:25 PM CDT Vascular Surgery Discharge Summary Blas Buitrago Date of : 1950 Age: [age] year old Date of Admission: 01/28/2017 Date of Discharge: 01/29/2017 12:25 PM Admitting Physician: Wayne Faith MD Discharging Service: [facility] Vascular Surgery Primary Provider: Supa Reyes Discharge Diagnosis: Principle Diagnosis: Carotid stenosis, left Secondary Diagnosis: Hyperlipidemia Hypertension Atrial Fibrillation Procedures: Left carotid endarterectomy Brief HPI: Blas Buitrago is a 66 year old year-old male who presented to [facility] for elective Left carotid endarterectomy for asymptomatic [...] Follow up with Dr. Faith at the [facility] in 2 weeks. Call [phone] with any questions or to schedule an appointment. Celeste Agarwal PA-C Office: [phone] Associated attestation - Wayne Faith MD - 2017 11:32 AM CDT Physician Attestation I, Wayne Faith, have reviewed and discussed with the advanced practice provider their discharge plan for Blas Buitrago. I did not participate in a shared visit by interviewing or examining the patient and this should be billed as an advanced practice provider only discharge. Wayne Faith Date of Service (when I saw the patient): I did not personally see this patient today. documented in this encounter Discharge Instructions Discharge Abad Gage RN - 01/29/2017 11:32 AM CDT Carotid [...] Adams MD - 01/29/2017 8:50 AM CDT [facility] Vascular Medicine Progress Note Assessment and Plan: [...] 81 mg Oral Daily ??? HYDROmorphone Intravenous FIRMWARE ARCHITECT ??? acetaminophen 975 mg Oral Q8H ??? [...] - 57 16 94 % - - 06/24/17 0400 107/58 97.6 ??F (36.4 ??C) Oral [...] - 54 12 96 % - - 01/28/171999 121/67 - - 48 14 93 % [...] - 49 12 97 % - - 06/23/17 1041 151/88 97 ??F (36.1 ??C) Temporal [...] Antibody Screen Neg Test Valid Only At [facility] Specimen Expires 01/31/2017 Hemoglobin Result Value Ref Range Hemoglobin 17.5 13.3 - 17.7 g/dL Glucose by meter Result Value Ref Range Glucose 142 (H) 70 - 99 mg/dL Andres Dutton RN - 01/28/2017 4:13 PM CDT Telephone report given to Station 33 RN. Patient will be transported to [facility] via cart accompanied by RN and NA. [...] for the 01/28/2017 admission is complete. See [facility] admission navigator for prior to admission medications Medication history source reliability:Good Medication history interview source(s):Patient Medication history resources (including written lists, pill bottles, clinic record):None Primary pharmacy.[facility] Additional medication history information not noted on FIRST PRESS OPERATOR med list :None Time spent in this [...] r eturned to its baseline appearance with taoism of flow. ? IMPRESSION: The study indicates that collateral flow is inadequate during the acute period of occlusion that was corrected with shunt insertion. ? JAROCHO STEELE MD, PHD, FAHA ? JAROCHO STEELE MD, PHD, FAHA documented in this encounter Consult Notes Dania Raymond MD - 01/28/2017 3:07 PM CDT [facility] Vascular Medicine Consultation Date of Admission: 01/28/2017 Date of Consult (When I saw the patient): 01/28/17 Physician Supervisory Attestation: I have reviewed and discussed with the physician assistant dean their history, physical and plan and independently interviewed and examined Blas Buitrago and agree with the plan as stated in the physician assistant dean note. This is a very pleasant male with Hx of STM loss for several hours in october 2016 [address] [place] head negatve but MRI showed [...] Plan: Post op cares and activity per [facility] Monitor neuro status Restart xarelto [...] Sabrina MD Primary care physician Dania Raymond MD,[facility] Vascular Medicine service. 01/28/2017 Assessment & [...] urinal. Ambulated in jimenez x1, tolerated well. FIRMWARE ARCHITECT and scheduled tylenol effective for pain. Plan of Care - Sherman Cui RN - 01/28/2017 10:33 PM CDT Problem: Goal Outcome Summary Goal: Goal Outcome Summary Outcome: Improving VSS except Bradycardic. A/O. SBA. Dangled by bedside.Bedrest overnight. L neck incision CDI. Neuros intact. FIRMWARE ARCHITECT for pain. Voiding fine. Tolerating clears. Tele [...] Left carotid thromboendarterectomy with Dacron patch angioplasty. CABLE WAY OPERATOR: CELESTE AGARWAL PA-C DESCRIPTION OF PROCEDURE: Under [...] MD MT: [id number] Name: BLAS BUITRAGO Account: [id number] : 1950 Procedure Date: 01/28/2017 Document: [id number] Brief Op Note - Allison Husain MD - 01/28/2017 2:48 PM CDT [facility] Brief Operative Note Pre-operative diagnosis: CAROTID STENOSIS Post-operative diagnosis CAROTID STENOSIS Procedure: Procedure(s): LEFT CAROTID ENDARTERECTOMY WITH ELECTROENCEPHALOGRAM - Wound Class: I-Clean Surgeon: Wayne Faith MD Assistants(s): Allison Husain MD (Alex) Estimated blood loss: 25 ml Specimens: None Findings: The patient is neurologically intact at the end of the case Allison Husain MD (Alex) Vascular Surgery Fellow (c) Brief Op Note - Celeste Agarwal PA-C - 01/28/2017 2:17 PM CDT [facility] Brief Operative Note Pre-operative diagnosis: CAROTID STENOSIS [...] command at completion. Celeste Agarwal PA-C Office: [phone] Pager: [phone] documented in this encounter Plan of Treatment [...] Glucose by meter (01/29/2017 6:05 AM CDT) athologist Signature Glucose 142 (H) 70 - 99 POINT OF CARE mg/dL TEST, GLUCOSE Specimen Anatomical Collection Method Collection Time Receive d Time (Source) Location / / Volume Laterality 01/29/2017 6:05 AM 7 6:15 CDT AM CDT Wayne Faith MD LAB - BEAKER POCT Performing Organization Address City/State/ZIP Code Phon e Number [facility] POINT OF CARE TEST, GLUCOSE POINT OF CARE TEST, GLUCOSE Hemoglobin (01/28/2017 10:26 AM CDT) athologist Signature Hemoglobin 17.5 13.3 - 17.7 [facility] g/dL [facility] Specimen Anatomical Collection Method Collection Time Receive d Time (Source) Location / / Volume Laterality Blood specimen 01/28/2017 10:26 7 (specimen) AM CDT 10:41 AM CDT Miky Lo LAB - BLOOD ORDERABLES Performing Organization Address City/[facility]/ZIP Code Phon e Number [facility] [address] [place] [address] [facility] [address] [place] [address], [facility] [phone] ABO/Rh type and screen (01/28/2017 10:26 AM CDT) [facility] gist Method Time Signature ABO A [facility] RH(D) Neg [facility] Antibody Neg [facility] Screen [facility] Test Valid [facility] Only At [facility] Specimen 01/31/2017 [facility] Expires [facility] Specimen Anatomical Collection Method Collection Time Receive d Time (Source) Location / / Volume Laterality Blood specimen 01/28/2017 10:26 7 (specimen) AM CDT 10:40 AM CDT Wayne Faith MD LAB - BLOOD BANK TEST ORDER Performing Organization Address City/[facility]/ZIP Code Phon e Number [facility] [address] [place] [address] [facility] [address] [place] [address], [place] [phone] Hemoglobin A1c (01/28/2017 10:26 AM CDT) P athologist Signature Hemoglobin A1C 5.7 4.3 - 6.0 [facility] Specimen Anatomical Collection Method Collection Time Receive d Time (Source) Location / / Volume Laterality Blood specimen 01/28/2017 10:26 7 (specimen) AM CDT 10:41 AM CDT Wayne Faith MD LAB - BLOOD ORDERABLES Performing Organization Address City/State/ZIP Code Phon e Number [facility] [address] [place] [address] [facility] [address] [place] [address], [place] [phone] Lipid panel (01/28/2017 10:26 AM CDT) Analysis Performed At Patho logist Time Signature Cholesterol 164 <200 mg/dL [facility] Triglycerides 84 <150 mg/dL [facility] HDL Cholesterol 81 >39 mg/dL [facility] LDL Cholesterol 66 <100 mg/dL [facility] Comment: Desirable: <100 mg/dl Non HDL Cholesterol 83 <130 mg/dL [facility] Specimen Anatomical Collection Method Collection Time Receive d Time (Source) Location / / Volume Laterality Blood specimen 01/28/2017 10:26 7 (specimen) AM CDT 10:41 AM CDT Wayne Faith MD LAB - BLOOD ORDERABLES Performing Organization Address City/State/ZIP Code Phon e Number [facility] [address] [place] [address] [phone] [facility] [address] [place] [address], [place] [phone] (ABNORMAL) Basic metabolic panel (01/28/2017 10:26 AM CDT) P athologist Signature Sodium 139 133 - 144 [facility] mmol/L [facility] Potassium 4.4 3.4 - 5.3 [facility] mmol/L [facility] Chloride 109 94 - 109 [facility] mmol/L [facility] Carbon Dioxide 25 20 - 32 [facility] mmol/L [facility] Anion Gap 5 3 - 14 [facility] mmol/L [facility] Glucose 114 (H) 70 - 99 [facility] mg/dL [facility] Urea Nitrogen 18 7 - 30 [facility] mg/dL [facility] Creatinine 1.04 0.66 - [facility] 1.25 mg/dL [facility] GFR Estimate 71 >60 [facility] mL/min/1.[address] Comment: Non GFR Calc GFR Estimate If Black 86 >60 mL/min/1.7m2 F [facility] Comment: GFR Calc Calcium 8.7 8.5 - 10.1 mg/dL [facility] Specimen Anatomical Collection Method Collection Time Receive d Time (Source) Location / / Volume Laterality Blood specimen 01/28/2017 10:26 7 (specimen) AM CDT 10:41 AM CDT Wayne Faith MD LAB - BLOOD ORDERABLES Performing Organization Address City/State/ZIP Code Phon e Number [facility] [address] [place] [address] [facility] [address] [place] [address], [facility] [phone] EEG - HIM SCAN (01/28/2017 12:00 AM [...] ORDERABLES documented in this encounter Visit Diagnoses Not on filedocumented in this encounter Administered Medications Inactive Administered Medications - up to 3 most recent administrations Medication Order MAR Action Action Date Dose Rate Site 0.9% sodium chloride infusion New Bag 01/28/2017 5:11 PM CDT 70 mL/hr at 70 mL/hr, Intravenous, CONTINUOUS, Saline lock when taking PO fluids., Post-procedure, Starting on Tue01/28/17 at 1715, Until 01/29/17 at 1425 250mL NaCl/2,500 Units Given 01/28/2017 12:54 PM 252.5 mLs Operative heparin CDT Site/Surgical S ite PRN, Starting on Tue01/28/17 at 1254, Intra-procedure acetaminophen (TYLENOL) tablet 975 mg Given 01/29/2017 4:44 AM CDT 975 mg 975 mg, Oral, EVERY 8 HOURS, First dose on Tue01/28/17 at 2200, For 3 days, Do not use if patient has an active opioid/acetaminophen analgesic order for pain Maximum acetaminophen dose from all sources = 75 mg/kg/day not to exceed 4 grams/day., Post-procedure atorvastatin (LIPITOR) tablet 20 mg Given 01/28/2017 9:46 PM CDT 20 mg 20 mg, Oral, AT BEDTIME, First dose on Tue01/28/17 at 2200 HYDROmorphone (DILAUDID) FIRMWARE ARCHITECT 1 New Syringe/Cartridge 01/29/2017 6:37 AM CDT mg/mL FIRMWARE ARCHITECT dose (mg): 0.2, Max FIRMWARE ARCHITECT dose (mg): 0.3, Lockout Interval (min): 10 minutes, FIRMWARE ARCHITECT Continuous Rate (mg/hr): CONTINUOUS RATE IS NOT RECOMMENDED FOR OPIOID NAIVE PATIENTS, Hour Limit (mg): 1.8, First dose on Tue01/28/17 at 1515, Do NOT give any additional opioids while on FIRMWARE ARCHITECT. When transitioning from FIRMWARE ARCHITECT to oral opioids MAY give first oral opioid dose 30 minutes PRIOR to discontinuation of FIRMWARE ARCHITECT., Intravenous, Post-procedure New Syringe/Cartridge 01/28/2017 9:47 PM CDT New Syringe/Cartridge 01/28/2017 3:18 PM CDT lidocaine (PF) (XYLOCAINE) Given 01/28/2017 1:30 PM 6 mLs Operative Site/Surgical 1 % injection CDT Site PRN, Starting on Tue01/28/17 at 1330, Intra-procedure lisinopril (PRINIVIL/ZESTRIL) tablet 5 m g Given 01/28/2017 8:33 PM CDT 5 mg 5 mg, Oral, EVERY EVENING, First dose on Tue01/28/17 at 2000 ondansetron (ZOFRAN) injection 4 mg 4 mg, [...] to lock peripheral IV dormant line., Post-procedure sodium chloride 0.9% Given 01/28/2017 12:54 PM 1,000 mLs Operative (bottle) irrigation CDT Site/Surgical S ite PRN, Starting on Tue01/28/17 at 1254, Intra-procedure documented in this encounter Active and Recently Administered Medications Times are shown in CDT. Scheduled Medication Order 01/27/2017 01/28/2017 01/29/2017 acetaminophen (TYLENOL) tablet 975 mg 21 47 (Not Given - Provider: Sherman Cui RN - Reason: Patient/family refused) 0444 (Given - Provider: Michelle Baird, MARIANNA) 975 mg, Oral, EVERY 8 HOURS, First [...] RN)1241 (Given - Provider: Yaz Gregg APRN VISUAL MERCHANDISE MANAGER) 2 g, Intravenous, PRE-OP/PRE-PROCEDURE, Starting Tue01/28/17 at 1019, For 1 dose, Give first dose within 1 hour PRIOR to incision. If patient weight is greater than or equal to 120 kg increase dose to 3 g., Indications: Surgical Prophylaxis, Pre-procedure HYDROmorphone (DILAUDID) FIRMWARE ARCHITECT 1 mg/mL 151 8 (New Syringe/Cartridge - Provider: Suellen Calle RN)2147 (New Syringe/Cartridge - Provider: Sherman Cui RN) 0637 (New Syringe/Cartridge - Provider: Michelle Baird RN) FIRMWARE ARCHITECT dose (mg): 0.2, Max FIRMWARE ARCHITECT dose (mg): 0 .3, Lockout Interval (min): 10 minutes, FIRMWARE ARCHITECT Continuous Rate (mg/hr): CONTINUOUS RATE IS NOT RECOMMENDED FOR OPIOID NAIVE PATIENTS, Hour Limit (mg): 1.8, First dos e on Tue01/28/17 at 1515, Do NOT give an y additional opioids while on FIRMWARE ARCHITECT. When transitioning from FIRMWARE ARCHITECT to oral opioids MAY give first oral opioid dose 30 minutes PRIOR to discontinuation of FIRMWARE ARCHITECT., Intravenous, Post-procedure lisinopril (PRINIVIL/ZESTRIL) tablet 5 mg [...] chloride (PF) 0.9% PF flush 3 mL 1711 (Not Given - Provider: Sherman Cui RN - Reason: IV Infusing) 0606 (Given - Provider: Michelle Baird RN) 3 [...] 1711 (New Bag - Pr ovider: Sherman Cui RN) at 70 mL/hr, Intravenous, CONTINUOUS, Sa line lock when taking PO fluids., Post- procedure, Starting Tue01/28/17 at 1715, Until 01/29/17 at 1425 lactated ringers infusion (CANCELED) 110 4 (New Bag - Provider: Kimberley Serrano RN)1415 (New Bag - Provider: Melissa Abel APRN VISUAL MERCHANDISE MANAGER)1456 (Anesthesia Volume Adjustment - Provider: Melissa Abel APRN VISUAL MERCHANDISE MANAGER) at 25 mL/hr, Intravenous, CONTINUOUS, IF patient [...] Starting Tue01/28/17 at 1704, Hold while on FIRMWARE ARCHITECT or with regular IV opioid dosing. IF [...] - Provider: Wayne Faith MD) PRN, Starting 01/28/17 at 1254, Intra-procedure Linked Groups Order Group 1: ondansetron (ZOFRAN-ODT) ODT tab 4 mgJump to med 4 mg, Oral, EVERY 6 HOURS PRN, nausea, S tarting 01/28/17 at 1704
This is Step 1 of [...] 6 HOURS PRN, na usea, vomiting, Starting 01/28/17 at 1704
This is Step 2 of [...]
Post-procedure documented in this encounter Care Teams Marine Engine Mechanic Relationship Specialty Start Date End Date Supa Reyes PCP - General Family Practice 10/21/16 08/18/[address] [address] documented as of this encounter
--- OUTSIDE RECORDS SUMMARY | 2022-06-14 08:38 | XMS_ITS | Encounter Summary ---
:1950 Author Organization [place] Address [address] [facility] [place] [address] Care Team Providers Name Role Phone EricSupa marti Primary Care Provider Reason for Visit Reason Onset Date Comments Nurse Advice Line 01/31/2017 Encounter Details Date Type Department Care Team Description 01/31/2017 Telephone [facility] Wayne Bennett N urse Advice Line Vascular Clinic Mauricio munoz MD 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 Pt LM on triage line stating that he has some questions regarding his steri strips, a headache, and a sore throat. I called the pt back and he reports that he developed a bad headache last night, 5-6/10. Pt reports that the headache was on the left side of his head, near his sabianism. Pt states that the URBANO was relieved with tylenol. Today, the pt reports, that the headache is still lingering, 09/17. Pt reports that his pain is managed with plain tylenol. Pt denies nausea/vomiting or visual disturbance. Pt reports that his BP is 167/87, which is a little elevated for him. Discussed above with and he recommends monitoring as the pt's symptoms sound like normal reperfusion type symptoms. Informed pt of 's recommendations and advised pt to call back or go to the ED if his headache gets worse, he develops visual disturbance, nausea/vomiting, or more elevated BP. Pt verbalized understanding. Pt reports that about half of his steri strips are not sticking to his incision, I reassured him that as long as his incision looks like it is approximating he should not worry about the steri strips. I also reassured him that his sore throat should continue to get better. Pt will call back with any additional questions or concerns, he is scheduled for post-op 02/16/17. STEPHEN Gregory, RN documented in this encounter Plan of Treatment Not on filedocumented as of this encounter Visit Diagnoses Not on filedocumented in this encounter Care Teams Foundation Relations Manager Relationship Specialty Start Date End Date Supa Reyes PCP - General Family Practice 10/21/16 08/18/21 [place] [address] documented as of this encounter
--- OUTSIDE RECORDS SUMMARY | 2022-06-14 08:38 | XMS_ITS | Encounter Summary ---
:1950 Author Organization [place] Address [address] [place] [address]. [place] [address] Care Team Providers Name Role Phone Supa Reyes Primary Care Provider Reason for Visit Reason Onset Date Comments Erroneous encounter-disregard 11/02/2016 Encounter Details Date Type Department Care Team Description 11/02/[address] [facility] Mauricio Paiz MD encounter-disregard 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
--- OUTSIDE RECORDS SUMMARY | 2022-06-14 08:38 | XMS_ITS | Encounter Summary ---
:1950 Author Organization [facility] Address [address] [place] [address]. [place] [address] Care Team Providers Name Role Phone Supa Reyes Primary Care Provider Reason for Visit Reason Comments Consult New consult for carotid sten osis Encounter Details Date Type Department Care Team Description [facility] MD [facility] carotid artery [address] [facility] 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 Last Filed Vital Signs Vital Sign Reading Time Taken Comments Blood Pressure 150/90 10/27/2016 10:07 AM CDT Pulse 60 10/27/2016 10:07 AM CDT Temperature - - Respiratory Rate - - Oxygen Saturation 98% 10/27/2016 10:07 AM CDT Inhaled Oxygen Concentration - - Weight 117.9 kg (260 lb) 10/27/2016 10:07 AM CDT pt rep orted Height 188 cm (6' 2) 10/27/2016 10:07 AM CDT pt repor krishna Body Mass Index 33.38 10/27/2016 10:07 AM CDT documented in this encounter Progress Notes Najma Clark CMA - 10/27/2016 10:45 AM CDT HPI ROS (Review of Systems): Cardiovascular: Positive for hypertension and hyperlipidemia. Genitourinary: Positive for nocturia. MUSCULOSKELETAL: Positive for arthralgias and back pain. Physical Exam Wayne Bennett MD - 10/27/2016 10:45 AM CDT 66 y/o male while hospitalized in [place] had an episode of short term memory loss over the course of several hours. CT head negative. MRI neck 65% stenosis left carotid artery. No focal neurologic deficits today or history of any Carotids 11/09 no bruits motor/sensory function nl Cr. N. 2-12 intact.He has an indwelling wallis catheter for BPH surgery scheduled for 11/09. U/S of carotids today shows peak velocity on the left 453 with 80-99% stenosis. Will check CTA of carotids if stenosis 75% or greater would recommend endarterectomy. Discussed all in detail all questions anwered. Face to face time 45 minutes greater than 50 % in consultation. documented in this encounter Nursing Notes Najma Clark CMA - 10/27/2016 10:45 AM CDT Chief Complaint Patient presents with ??? Consult New consult for carotid stenosis Initial BP 150/90 (BP Location: Right arm, Cuff Size: Adult Large) Pulse 60 Ht 6' 2 (1.88 m) Wt 260 lb (117.9 kg) SpO2 98% BMI 33.38 kg/m2 Estimated body mass index is 33.38 kg/(m^2) as calculated from the following: Height as of this encounter: 6' 2 (1.88 m). Weight as of this encounter: 260 lb (117.9 kg). Medication Reconciliation: vinay Clark CMA documented in this encounter Plan of Treatment Not on filedocumented as of this encounter Visit Diagnoses Diagnosis Stenosis of left carotid artery - Primar y Occlusion and stenosis of carotid artery without mention of cerebral infarction documented in this encounter Care Teams Insurance Claims Assistant Relationship Specialty Start Date End Date Supa Reyes PCP - General Family Practice 10/21/16 08/18/21 [place] [address] documented as of this encounter
--- OUTSIDE RECORDS SUMMARY | 2022-06-14 08:38 | XMS_ITS | Encounter Summary ---
:1950 Author Organization [facility] Address [address] [place] [address]. [place] [address] Care Team Providers Name Role Phone Supa Reyes Primary Care Provider Reason for Visit Reason Comments Surgical Followup 1st PO; LEFT CAROTID ENDARTE RECTOMY Encounter Details Date Type Department Care Team Description 02/16/2017 Office Visit [facility] Wayne Bennett Surgical followup Surgery Clinic MD [facility] visit (Primary Dx) 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 Hyperperfusion URBANO resolved. Carotid-4/4 no bruits. Doing well. F/U as per protocol. Continue present medications. documented in this encounter Nursing Notes Najma Clark CMA - 02/16/2017 9:45 AM CDT Chief Complaint Patient presents with ??? Surgical Followup 1st PO; LEFT CAROTID ENDARTERECTOMY Initial BP 134/76 (BP Location: Left arm, Cuff Size: Adult Large) Pulse 51 Temp 98.1 ??F (36.7 ??C) (Oral) Ht 6' 2 (1.88 m) Wt 259 lb (117.5 kg) SpO2 95% BMI 33.25 kg/m2 Estimated body mass index is 33.25 kg/(m^2) as calculated from the following: Height as of this encounter: 6' 2 (1.88 m). Weight as of this encounter: 259 lb (117.5 kg). Medication Reconciliation: complete Najma Clark CMA documented in this encounter Plan of Treatment Not on filedocumented as of this encounter Visit Diagnoses Diagnosis Surgical followup visit - Primary Follow-up examination, following unspeci fied surgery documented in this encounter Care Teams Regional Planner Relationship Specialty Start Date End Date Supa Reyes PCP - General Family Practice 10/21/16 08/18/[address] [address] documented as of this encounter
--- OUTSIDE RECORDS SUMMARY | 2022-06-14 08:38 | XMS_ITS | Encounter Summary ---
:1950 Author Organization [facility] Address [address] [place] [address] Care Team Providers Name Role Phone Supa Reyes Primary Care Provider Reason for Visit Auth/Cert Specialty Diagnoses / Procedures Referred By Contact Refer red To Contact Surgery Diagnoses CAROTID STENOSIS Sh Periop Services Procedures ENDARTERECTOMY CAROTID [address], [address] [place] [phone] Phone: Referral ID Status Reason Start Date Expiration Date Visits Requ ested Visits Authorized [id number] 1 1 Encounter Details Date Type Department Care Team Description 01/28/2017 Anesthesia Event [facility] Miky Lo [facility] AN[facility] [address] [place], [place] [address] [facility] Mae [address], [address] [address] Anesthesia Record Procedure Summary Procedure Name Responsible Anesthesia Start Anesthesia Stop Anesthesiologist Time Time LEFT CAROTID ENDARTERECTOMY Miky Lo 01/28/17 1230 01/07 10/22 1456 WITH ELECTROENCEPHALOGRAM (Left: Neck) Events Date Time Event Comment 01/28/2017 1118 1230 An Start 1230 An Start Data 1232 MD Present 1236 An Induction 1241 An Intubation 1241 AN START SEVO 1253 AN INCISION 1300 Quick Note Blocking caroid bodies 1316 An Carotid On Placing shunt 1318 An Carotid Off 1332 MD Present 1402 Quick Note Shunt out 1432 AN END SEVO 1438 MD Present 1445 AN Extubation 1448 an stop data 1456 An Stop Electronically s igned by Melissa Abel on January 28, 2017 2:56 PM Name Total dexamethasone 4mg/mL 4 mg ePHEDrine 5 mg/mL 15 mg fentaNYL (SUBLIMAZE) injection 200 mcg glycopyrrolate 0.2mg/mL 1.4 mg lidocaine 2% 60 mg midazolam 1mg/mL 2 mg neostigmine 1mg/mL 5 mg phenylephrine (HUNG-SYNEPHRINE) injection 1 mg 100 mcg ondansetron 2mg/mL 4 mg propofol (DIPRIVAN) injection 10 mg/mL vial 200 mg rocuronium 10mg/mL 50 mg ceFAZolin sodium-dextrose (ANCEF) infusion 2 g 2 g phenylephrine 0.2 mg/mL (mcg/kg/min) drip 3.25 mg heparin 1,000 units/mL 5,000 Units dexmedetomidine (PRECEDEX) 4 mcg/mL bolus 8 mcg labetalol syringe 20 mg 15 mg lactated ringers infusion 1,300 mL Agents Name NO HELIOX O2 N2O Air Exp Sevoflurane Exp Isoflurane Exp Desflurane Exp N2O Ins Sevoflurane Ins Isoflurane Ins Desflurane O2 Auxiliary Blood No blood administrations on file. Lines, Drains, and Airways Type Details Placement Removal Peripheral IV 01/28/17; 1103; 18 G; 01/28/17 1103 by 01/29/17 1100 by Left; Hand; Kimberley Serrano RN Adam, Montant e, RN Chlorhexidine; Injectable Arterial Line 01/28/17; 1155; Left; 01/28/17 1155 by 01/28/17 1606 by Radial; Thyr; Kimberley Serrano RN Lim, Alberto, RN 01/28/17; 1606; No longer indicated RETIRED ETT 01/28/17; 1241; Mask 01/28/17 1241 by 01/28/17 1 445 by Ventilation: Easy with Yaz Gregg Salden, Natalie, oral airway (2 FREEZER WORKER DIP LUBE OPERATOR FREEZER WORKER DIP LUBE OPERATOR person); Ease of Intubation: Easy; Airway Size: 8; Cuffed; Oral; Blade Type: [place]ro[place]; Blade Size: 2; Place by: Martin Gregg; Insertion Attempts: 1; Secured at (cm)to lip: 24 cm; Breath Sounds: Equal, clear and bilateral; End Tidal CO2: Present; Dentition: Intact; Grade View of Cords: 2 Incision/Surgical Site 01/28/17; 1424; Left; 01/28/17 1424 by 0105 by Neck; 08/29/20; 0105 Gaby Linda RN Inpati ent, Nurse documented in this encounter Social History Tobacco Use Types Packs/Day Years Used Date Smoking Tobacco: Former Cigarettes Quit : 08/08/1990 Alcohol Use Standard Drinks/Week Comments Yes 0 (1 standard drink = 0.6 oz pure alcoho l) 5 / week Sex Assigned at Date Recorded 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 Anesthesia Type: General, ETT Note: Anesthesia Post Evaluation Patient location during evaluation: PACU Patient participation: Able to fully participate in evaluation Level of consciousness: awake Pain management: adequate Cardiovascular status: acceptable Respiratory status: acceptable Hydration status: acceptable PONV: none Anesthetic complications: None Last vitals: Vitals: 01/28/17 1620 01/28/17 1630 01/28/17 1640 BP: 129/71 119/62 Resp: 10 12 9 Temp: SpO2: 95% 99% 98% Electronically Signed By: MIKY LO January 28, 2017 6:58 PM Anesthesia Postprocedure Evaluation - Melissa Abel APRN CRNA - 01/28/2017 2:59 PM CDT Patient: Tyler Muro Procedure(s): LEFT CAROTID ENDARTERECTOMY WITH ELECTROENCEPHALOGRAM - Wound Class: I-Clean Diagnosis:CAROTID STENOSIS Diagnosis Additional Information: No value filed. Anesthesia Type: General, ETT Note: Anesthesia Post Evaluation Patient location during evaluation: PACU Patient participation: Able to fully participate in evaluation Level of consciousness: awake and alert Pain management: adequate Airway patency: patent Cardiovascular status: blood pressure returned to baseline, hemodynamically stable, acceptable and stable Respiratory status: acceptable, spontaneous ventilation, face mask and unassisted Hydration status: stable PONV: none Last vitals: Vitals: 01/28/17 1041 01/28/17 1156 01/28/17 1200 BP: 151/88 134/65 161/78 Resp: 16 12 14 Temp: 36.1 ??C (97 ??F) SpO2: 98% 97% 98% Electronically Signed By: Melissa Abel APRN CRNA January 28, 2017 2:59 PM Anesthesia Procedure Notes - Miky Lo - 01/28/2017 11:54 AM CDTAssociated Order(s): ANE A LINE CATHETER PLACEMENT ARTERIAL LINE PROCEDURE NOTE: Pre-Procedure Performed by MIKY LO Location: pre-op Pre-Anesthestic Checklist: patient identified, IV checked, risks and benefits discussed and informedconsent Timeout Correct Patient: Yes Correct Procedure: Yes Correct Site: Yes Correct Laterality: N/A Correct Position: Yes Site Marked: N/A . Procedure Documentation Procedure: arterial line Supine Insertion Site:left, radial.Skin infiltrated with mL of 1% lidocaine. Injection technique: SeldingerTechnique . . Patient Prep;chlorhexidine gluconate and isopropyl alcohol, patient draped Assessment/Narrative Catheter: 20 gauge, 12 cm Secured by suture Tegaderm dressing used. Arterial waveform: Yes Comments: Arterial Line No complications Anesthesia Preprocedure Evaluation - Miky Lo - 01/28/2017 11:16 AM CDT Anesthesia Evaluation . Pt has had prior anesthetic. No history of anesthetic complications ROS/MED HX ENT/Pulmonary: (+)sleep apnea (mild), doesn't use CPAP , . . Neurologic: (+)TIA Cardiovascular: (+) Dyslipidemia, hypertension-Peripheral Vascular Disease-- Carotid Stenosis and Symptomatic, --. :. . . :. dysrhythmias a-fib, Irregular Heartbeat/Palpitations, . (-) CAD METS/Exercise Tolerance: Hematologic: Musculoskeletal: GI/Hepatic: (-) GERD Renal/Genitourinary: Endo: (+) Obesity, . Psychiatric: Infectious Disease: Malignancy: Other: Physical Exam Normal systems: pulmonary Airway TM distance: >3 FB Neck ROM: full Dental Comment: red cliff Cardiovascular Rhythm and rate: regular and normal Pulmonary Anesthesia Plan History & Physical Review History and physical reviewed and following examination; no interval change. ASA Status: 3 . NPO Status: > 8 hours Plan for General and ETT with Propofol induction. Maintenance will be Inhalation. PONV prophylaxis: Ondansetron (or other 5HT-3) and Dexamethasone or Solumedrol Additional equipment: Arterial Line Postoperative Care Consents Anesthetic plan, risks, benefits and alternatives discussed with: Patient.. . documented in this encounter Miscellaneous Notes Anesthesia Care Transfer Note - Melissa Abel APRN CRNA - 01/28/2017 2:54 PM CDT Patient: Tyler Muro Procedure(s): LEFT CAROTID ENDARTERECTOMY WITH ELECTROENCEPHALOGRAM - Wound Class: I-Clean Diagnosis: CAROTID STENOSIS Diagnosis Additional Information: No value filed. Anesthesia Type: General, ETT Note: Airway :Face Mask Patient transferred to:PACU Comments: Patient moves all extremities and follows commands. Ok'd by surgeon to go to PACU. Patientbreathing spontaneously prior to extubation with tidal volumes >400cc. Patient resting comfortably. Vitals: (Last set prior to Anesthesia Care Transfer) BENNY VITALS 01/28/2017 1418 - 01/28/2017 1454 01/28/2017 Pulse: 57 ART BP: 130/55 ART Mean: 93 SpO2: 98 % Resp Rate (set): 10 Electronically Signed By: Melissa Abel APRN CRNA January 28, 2017 2:54 PM documented in this encounter Plan of Treatment Not on filedocumented as of this encounter Procedures Procedure Name Priority Date/Time Associated Diagnosis Comme nts ANE A LINE CATHETER Routine 01/28/2017 11:55 AM CDT PLACEMENT Procedure Note - Miky Lo - 01/28/2017 11:54 AM CDTThis note is in progress. Formatting of this note migh t be different from the original. ARTERIAL LINE PROCEDURE NOTE : Pre-Procedure Performed by MIKY LO Location: pre-op Pre-Anesthestic Checklist: p atient identified, IV checked, risks and benefits discussed and informed consent Timeout Correct Patient: Yes Correct Procedure: Yes Correct Site: Yes Correct Laterality: N/A Correct Position: Yes Site Marked: N/A . Procedure Documentation Procedure: arterial line Supine Insertion Site:left, radial. Skin infiltrated with mL of 1% lidocaine. Injection technique: Seldinger Technique . . Patient Prep;chlorhexidine gluconate and isopropyl alcohol, patient draped Assessment/Narrative Catheter: 20 gauge, 12 cm Secured by suture Tegaderm dressing used. Arterial waveform: Yes Comments: Arterial Line No complications documented in this encounter Visit Diagnoses Not on filedocumented in this encounter Administered Medications Inactive Administered Medications - up to 3 most recent administrations Medication Order MAR Action Action Date Dose Rate Site ceFAZolin sodium-dextrose (ANCEF) Given 01/28/2017 12:41 PM CDT 2 g infusion 2 g Routine, 2 g, Intravenous, PRE-OP/PRE-PROCEDURE, Starting on Tue01/28/17 at 1019, For 1 dose, Give first dose within 1 hour PRIOR to incision. If patient weight is greater than or equal to 120 kg increase dose to 3 g., Indications: Perioperative Pharmacoprophylaxis, Pre-procedure dexamethasone (DECADRON) injection Given 01/28/2017 1:27 PM CDT 4 mg PRN, Administer over 1-4 Minutes, Starting on Tue01/28/17 at 1327, Anesthesia Intra-op dexmedetomidine (PRECEDEX) 4 mcg/mL bolu s New Bag 01/28/2017 2:27 PM CDT 8 mcg 200 mcg, CONTINUOUS PRN, Starting on Tue01/28/17 at 1427, Anesthesia Intra-op ePHEDrine injection Given 01/28/2017 1:16 PM CDT 5 mg PRN, Starting on Tue01/28/17 at 1249, Anesthesia Intra-op Given 01/28/2017 1:02 PM CDT 5 mg Given 01/28/2017 12:49 PM CDT 5 mg fentaNYL Citrate (PF) (SUBLIMAZE) inject ion Given 01/28/2017 12:55 PM CDT 100 mcg PRN, moderate to severe pain, Starting on Tue01/28/17 at 1242, Anesthesia Intra-op Given 01/28/2017 12:45 PM CDT 50 mcg Given 01/28/2017 12:42 PM CDT 50 mcg glycopyrrolate (ROBINUL) injection Given 01/28/2017 2:22 PM CDT 0.6 mg PRN, Starting on Tue01/28/17 at 1258, Anesthesia Intra-op Given 01/28/2017 2:18 PM CDT 0.4 mg Given 01/28/2017 1:01 PM CDT 0.2 mg heparin (porcine) injection Given 01/28/2017 1:12 PM CDT 5,000 Units PRN, line flush, Starting on Tue01/28/17 at 1312, Anesthesia Intra-op labetalol (NORMODYNE/TRANDATE) injection Given 01/28/2017 2:40 PM CDT 5 mg PRN, high blood pressure, Starting on Tue01/28/17 at 1429, Anesthesia Intra-op Given 01/28/2017 2:37 PM CDT 5 mg Given 01/28/2017 2:29 PM CDT 5 mg lactated ringers infusion New Bag 01/28/2017 2:15 PM CDT at 25 mL/hr, Intravenous, CONTINUOUS, IF patient NOT on dialysis., Starting on Tue01/28/17 at 1030, Until Tue01/28/17 at 1705 New Bag 01/28/2017 11:04 AM CDT 25 mL/hr lidocaine injection 2% (MDV) Given 01/28/2017 12:36 PM CDT 60 mg PRN, Starting on Tue01/28/17 at 1236, Anesthesia Intra-op midazolam (VERSED) injection Given 01/28/2017 12:30 PM CDT 2 mg PRN, anxiety, Starting on Tue01/28/17 at 1230, Anesthesia Intra-op neostigmine (PROSTIGMINE) injection Given 01/28/2017 2:22 PM CDT 3 mg Intravenous, PRN, Starting on Tue01/28/17 at 1418, Anesthesia Intra-op Given 01/28/2017 2:18 PM CDT 2 mg ondansetron (ZOFRAN) injection Given 01/28/2017 2:10 PM CDT 4 mg PRN, nausea, vomiting, Administer over 2-5 Minutes, Starting on Tue01/28/17 at 1410, Anesthesia Intra-op phenylephrine (HUNG-SYNEPHRINE) injection 1 New Bag 01/28 1:17 PM CDT 50 mcg mg 1 mg, CONTINUOUS PRN, Starting on Tue01/28/17 at 1317, Anesthesia Intra-op New Bag 01/28/2017 1:12 PM CDT 50 mcg phenylephrine 0.2 Rate/Dose Change 01/28/2017 2:17 PM 0.25 mcg/kg/m in 8.84 mL/hr mg/mL (mcg/kg/min) CDT drip 50 mg, CONTINUOUS PRN, Starting on Tue01/28/17 at 1244, Anesthesia Intra-op Rate/Dose Change 01/28/2017 2:10 PM CDT 0.3 mcg/kg/min 10.61 mL/hr Rate/Dose Change 01/28/2017 2:04 PM CDT 0.35 mcg/kg/min 12.38 mL/hr propofol (DIPRIVAN) injection 10 mg/mL v ial Given 01/28/2017 12:36 PM CDT 200 mg PRN, Starting on Tue01/28/17 at 1236, Anesthesia Intra-op rocuronium (ZEMURON) injection Given 01/28/2017 12:36 PM CDT 50 mg PRN, Starting on Tue01/28/17 at 1236, Anesthesia Intra-op documented in this encounter Care Teams [employer] Relationship Specialty Start Date End Date Supa Reyes PCP - General Family Practice 10/21/16 08/18/21 [place] [address] documented as of this encounter
--- OUTSIDE RECORDS SUMMARY | 2022-06-14 08:39 | XMS_ITS | Encounter Summary ---
:1950 Author Organization [facility] Address [address], [place] [address] Care Team Providers Name Role Phone Merissa Nelson MD Primary Care Provider Encounter Details Date Type Department Care Team Description 10/03/2020 Immunization [facility] Rank, Miky French MD Encounter for COVID Vaccine [address] [facility] administration of Program [place], [place] vaccine (Primary Dx) [address] [facility] [address] [place] [address] [phone] Social History Tobacco Use Types Packs/Day Years Used Date Smoking Tobacco: Former Cigarettes 0.3 23 Quit : 08/08/1988 Smokeless Tobacco: Never Alcohol Use Standard Drinks/Week Comments Yes 10 (1 standard drink = 0.6 oz pure alcoh ol) Sex Assigned at Date Recorded Not on file documented as of this encounter Plan of Treatment Upcoming Encounters Date Type Specialty Care Team Description 07/12/2022 Appointment Optometry Linda Dorsey , OD [address] [place], [place] [address] (Wo rk) documented as of this encounter Visit Diagnoses Diagnosis Encounter for administration of vaccine - Primary documented in this encounter Care Teams Chapter Relations Administrator Relationship Specialty Start Date End Date Merissa Nelson MD PCP - General 10/23/[address] [place] [address] documented as of this encounter
--- OUTSIDE RECORDS SUMMARY | 2022-06-14 08:39 | XMS_ITS | Encounter Summary ---
:1950 Author Organization [facility] Address [address] [place] [address] Care Team Providers Name Role Phone Merissa Nelson MD Primary Care Provider Encounter Details Date Type Department Care Team Description 03/07/2018 Telephone [facility] [place] Samreen Guadalupe CO [address] [place], [place] [address] [place] [address] [phone] (Wo rk) Social History Tobacco Use Types Packs/Day Years Used Date Smoking Tobacco: Former Cigarettes 0.3 23 Quit : 08/08/1988 Smokeless Tobacco: Never Alcohol Use Standard Drinks/Week Comments Yes 10 (1 standard drink = 0.6 oz pure alcoh ol) Sex Assigned at Date Recorded Not on file documented as of this encounter Nursing Notes Samreen Diaz CO - 03/07/2018 3:22 PM CDT Spoke with pt. He states that he wont be home from the -27 of March. Please call him afterwards to let him when glasses are ready. 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 Thank you, MIA Garza Samreen Diaz CO - 03/07/2018 3:19 PM CDT Mark Ok to remake mew glasses with increase in myope and decrease in astigm. Handed glasses back to Em for remake. Will call to let pt know. documented in this encounter Plan of Treatment Upcoming Encounters Date Type Specialty Care Team Description 07/12/2022 Appointment Optometry Linda Dorsey , OD [address] [place] [phone] (Wo rk) documented as of this encounter Visit Diagnoses Not on filedocumented in this encounter Care Teams Steeple Jack Relationship Specialty Start Date End Date Merissa Nelson MD PCP - General 10/23/[address] [place] [address] documented as of this encounter
--- OUTSIDE RECORDS SUMMARY | 2022-06-14 08:39 | XMS_ITS | Encounter Summary ---
:1950 Author Organization [facility] Address [address] [place] [address] Care Team Providers Name Role Phone Merissa Nelson MD Primary Care Provider Reason for Visit Reason Comments Routine Eye Exam Encounter Details Date Type Department Care Team Description 11/17/2020 [facility] Kahlil Kennedy, Visit for eye and vision exa m (Primary Dx); [address] OD Regular astigmatism, bilateral; [place], [place] [address] [address] Hyperopia, bilateral; [phone] [place], [place] Presbyopia; [address] Esophoria; [phone] Nuclear scleros is, bilateral (Work) Social History Tobacco Use Types Packs/Day Years Used Date Smoking Tobacco: Former Cigarettes 0.3 23 Quit : 08/08/1988 Smokeless Tobacco: Never Alcohol Use Standard Drinks/Week Comments Yes 10 (1 standard drink = 0.6 oz pure alcoh ol) Sex Assigned at Date Recorded Not on file documented as of this encounter Patient Instructions Patient InstructionsKahlil Kennedy, OD - 11/17/2020 11:00 AM CDT Thanks for coming in today Sherif! It was a pleasure to participate in your care! The information below may be helpful for you to review as a part of today's visit. Should you have any questions or concerns please feel free to come back anytime. Kahlil Kennedy, OD 11/17/2020, 11:42 AM Cataracts What are cataracts? A cataract is a clouding of the lens of the eye. The lens is located behind the colored part of the eye (iris). Normally, the lens focuses the light on the retina so that we can see images clearly. However when a cataract develops, light hits the cloudy lens and can no longer focus properly, causing vision problems. Usually they develop in both eyes, but one may be worse than the other. What causes cataracts? Cataracts are very common and are typically normal age-related changes. However, other factors can contribute to cataract formation as well. These include diabetes, medications such as corticosteroids,ultraviolet radiation/UV (sun) exposure, smoking and eye injuries or surgeries. What are the symptoms of cataracts? ?? Blurred vision ?? Increased sensitivity to glare from lights, especially while driving at night ?? Changes in color vision ?? Changes to glasses prescription What can I do to slow the progression of my cataracts? Developing cataracts is a normal part of life. Eventually the cataracts will likely need to be removed by surgery. Typically, surgery is discussed when the vision is impacting your day-to-day life. Until that time, these are some helpful preventative steps you can take: ?? Wear sunglasses to block out harmful sunlight. Buy sunglasses that screen out ultraviolet A and B(UVA and UVB) rays. ?? Have your eyes checked regularly, and update your glasses when needed. ?? Do not smoke. Smoking can make cataracts worse. If you need help quitting, talk to your doctor about stop-smoking programs available through [facility]. What does cataract surgery mean for me? A decision for surgery would follow a discussion of the risks, benefits, potential complications andalternatives with your eye care provider. Fortunately, complications from cataract surgery are relatively uncommon. Some rare risks include bleeding, swelling, infection, irregular appearance of the pupil, the need for more surgery, and loss of vision. What can I expect with cataract surgery? Surgery is usually done as an outpatient (you go home the same day). Typically patients are at the surgery between 2 and 3 hours ???door to door?? . However, only 30 minutes or less of that time is actually spent in the operating room. Following surgery, eye drops are often prescribed to assist in healing and prevent infection. New glasses are prescribed when the eyes have healed. Surgery is only done for one eye at a time. Cataract surgery is one of the safest and most effective types of surgery performed in the [place] today. Over 95 percent of cataract surgery patients have a successful result. If you have any concerns, please don???t hesitate to ask your eye care provider. documented in this encounter Progress Notes Kahlil Kennedy, OD - 11/17/2020 11:00 AM CDT Chief Complaint Patient presents with ??? Routine Eye Exam HPI Here for [facility]CH[facility] January [address] Flores. VA seems a bit worse at distance and near. No pain. UsesAT's prn. Occasional stinging sensation OU, gtts help. Has issues with way glasses were made previously. Seemed to have to do with progressives. Unclear ifissue was diplopia or blur. No diplopia noted with current glasses today. Patient did not notice anydiscrepancy between eyes until VA testing today. Last edited by Kahlil Kennedy, OD on 11/17/2020 11:53 AM. (History) History Reviewed Assessment and Plan 1. Visit for eye and vision exam 2. Regular astigmatism, bilateral 3. Hyperopia, bilateral 4. Presbyopia 5. Esophoria 6. Nuclear sclerosis, bilateral 1-5. New spectacle Rx given. Trialed multiple Rxs and with or without small prism. Patient preferredRx in final Rx over all others tried. Discussed change in Rx and possible adjustment. Told patient to RTC if having difficulty adjusting or any double vision. 6. Discussed symptoms of cataract progression: increased glare, halos, decreased night time driving,difficulty reading and generalized blur. Encouraged patient to return for sooner follow up if they had concerns about worsening vision in either eye. Return to clinic in 1 year(s) for comprehensive eye exam Kahlil Kennedy, IDALIA 11/17/2020, 11:53 AM documented in this encounter Plan of Treatment Upcoming Encounters Date Type Specialty Care Team Description 07/12/2022 Appointment Optometry Linda Dorsey , OD [address] [place], [place] [phone] (Wo rk) documented as of this encounter Visit Diagnoses Diagnosis Visit for eye and vision exam - Primary Examination of eyes and vision Regular astigmatism, bilateral Hyperopia, bilateral Presbyopia Esophoria Nuclear sclerosis, bilateral documented in this encounter Care Teams Writing Manager Relationship Specialty Start Date End Date Merissa Nelson MD PCP - General 10/23/[address] [place] [address] documented as of this encounter
--- OUTSIDE RECORDS SUMMARY | 2022-06-14 08:39 | XMS_ITS | Encounter Summary ---
:1950 Author Organization [facility] Address [address], [place] [address] Care Team Providers Name Role Phone Merissa Nelson MD Primary Care Provider Encounter Details Date Type Department Care Team Description 10/24/2020 [facility] COVID [facility] nter for Vaccine Program administration of vaccine [address] [facility] (Primary Dx) [place] [address] Social History Tobacco Use Types Packs/Day Years [...] Optometry Linda Dorsey , OD [address] [place], [place] [phone] (Wo rk) documented as of this encounter Visit Diagnoses Diagnosis Encounter for administration of vaccine - Primary documented in this encounter Care Teams Catalyst Plant Supervisor Relationship Specialty Start Date End Date Merissa Nelson MD PCP - General 10/23/[address] [place] [address] documented as of this encounter
--- OUTSIDE RECORDS SUMMARY | 2022-06-14 08:39 | XMS_ITS | Encounter Summary ---
:1950 Author Organization [facility] Address [address] [place] [address] Care Team Providers Name Role Phone Merissa Nelson MD Primary Care Provider Reason for Visit Reason Comments Follow-up, NOS Patient returns for follow u p after VF and OCT. He states that he is not happy with his current v ision with his new glasses. He complains of strain that he did not fleming ve with his old glasses. He denies using any drops or ointment in his eyes. Encounter Details Date Type Department Care Team Description 06/28/2017 Office Visit [facility] Monika Funk Blepharitis of upper and low er eyelids of both eyes, unspecified type (Primary Dx); [address], [place] Chalazion left upper eyelid; [place], [place] [address] [address] Subjective vision disturbance [phone] [place] [address] Social History Tobacco Use Types Packs/Day Years Used Date Smoking Tobacco: Former Cigarettes 0.3 23 Quit : 08/08/1988 Smokeless Tobacco: Never Alcohol Use Standard Drinks/Week Comments Yes 10 (1 standard drink = 0.6 oz pure alcoh ol) Sex Assigned at Date Recorded Not on file documented as of this encounter Patient Instructions Patient InstructionsMonika Funk, OD - 06/28/2017 9:20 AM CST Warm compresses 10 minutes at a time daily. Use washcloth to rub lid margin. Artificial tears up to 4 times a day. Blepharitis Blepharitis is a very common inflammation of the eyelids, particularly the oil glands on the very edge of the eyelid. Symptoms include irritation, itching, mucus discharge, and redness of the eyes and eyelids. This condition can occur in anyone, but more frequently in people who tend to have oily skin, dandruff, or rosacea. Three primary problems occur with blepharitis: Oil glands in the eyelid become overactive and/or plugged, causing irritation to both the eyes and the eyelids. If they become plugged enough, a stye or chalazion may form. The normal bacteria in the skin at the base of the eyelashes overgrow. There is not a true eye infection, but a moderate overgrowth of the normal bacteria, and this causes even more redness and irritation. The eye???s normal tears are less able to adequately sooth and lubricate the eye and eyelids becausethe normal oils in the tear layer are destabilized. Blepharitis treatment is to control the symptoms, usually with a combination of treatments including: * At least twice a day, place a warm, wet washcloth over your closed eyelids for a minute. Rewet itas it cools, two or three times. This will soften and loosen scales and debris. More important, it helps liquefy the oily secretions from the eyelids??? oil glands, which helps prevent the development of a chalazion, an inflamed lump in an eyelid oil gland. * As instructed by your doctor, consider using a commercial eyelid laboratory equipment cleaner (such as OCUSOFT or STERILID), or baby shampoo to help gently clean the eyelids, particularly the eyelid margin. When medications are necessary, they may include: * Artificial tears drops, over the counter, to relieve symptoms of dry eye * Antibiotics eye drops to decrease the normal bacteria on the eyelids * Antibiotics tablets taken by mouth, such as doxycycline or Minocycline, usually [facility] (6-12 months) * Steroid eye drops, but typically only short-term, to help decrease inflammation R PIPE LAYER HELPER documented in this encounter Progress Notes Monika Funk, OD - 06/28/2017 9:20 AM CST Chief Complaint Patient presents with ??? Follow-up, NOS Patient returns for follow up after VF and OCT. He states that he is not happy with his current vision with his new glasses. He complains of strain that he did not have with his old glasses. He deniesusing any drops or ointment in his eyes. History Reviewed Assessment ICD-10-CM 1. Blepharitis of upper and lower eyelids of both eyes, unspecified type H01.001 H01.005 H01.004 H01.002 2. Chalazion left upper eyelid H00.14 3. Subjective vision disturbance H53.10 Letting spray from shower wash over his lids now. Not sure if they are better at all. Discussed tests from last visit with tech: All ok Note: No charge for refraction today, billed out 05/2017. Plan Spectacle Prescription given. Mild changes discussed. Patient understood what was discussed and all questions were answered. See patient instructions. Warm compresses to eyelids, 10 minutes at a time daily. Use washcloth to rub lid margin. Artificial tears up to 4 times a day. Call or return to clinic prn if these symptoms worsen, fail to improve as anticipated, or if new symptoms develop. Monika Funk,IDALIA R PIPE LAYER HELPER documented in this encounter Plan of Treatment Upcoming Encounters Date Type Specialty Care Team Description 07/12/2022 Appointment Optometry Linda Dorsey , OD [address] [place], [place] [phone] (Wo rk) documented as of this encounter Visit Diagnoses Diagnosis Blepharitis of upper and lower eyelids o f both eyes, unspecified type - Primary Chalazion left upper eyelid Subjective vision disturbance Subjective visual disturbance, unspecifi ed documented in this encounter Care Teams Marine Equipment Sales Engineer Relationship Specialty Start Date End Date Merissa Nelson MD PCP - General 10/23/[address] [place] [address] documented as of this encounter
--- OUTSIDE RECORDS SUMMARY | 2022-06-14 08:39 | XMS_ITS | Encounter Summary ---
:1950 Author Organization [facility] Address [address] [place] [address] Care Team Providers Name Role Phone Merissa Nelson MD Primary Care Provider Encounter Details Date Type Department Care Team Description 03/02/2018 Office Visit [facility] Blurry vision (Primary Dx); Ophthalmology [address] Myopia of both eyes with astigmatism and presbyopia; [address] [place], [place] Dry eyes, bilateral [place], [place] [phone] Social History Tobacco Use Types Packs/Day Years Used Date Smoking Tobacco: Former Cigarettes 0.3 23 Quit : 08/08/1988 Smokeless Tobacco: Never Alcohol Use Standard Drinks/Week Comments Yes 10 (1 standard drink = 0.6 oz pure alcoh ol) Sex Assigned at Date Recorded Not on file documented as of this encounter Patient Instructions Patient InstructionsSamreen Diaz, CO - 03/02/2018 9:00 AM CDT New prescription found today. It appears that you like a bit more power to clear up vision in distance. We will keep near power as is. Please remake glasses with [facility]. Try them on for 1-2 weeks to see how it works. If it is not working, call us back and we will figure out what to do then. Also advise to speak with Brandy in Optical about the technology that was used in old pair of glassesto see if new glasses can be made with the same kind of technology. (digital ground in vs ground in) vs (progressive scheme of old glasses vs new glasses.) Dry eye may be a factor in the clarity of your vision and also remembering to find a sweet spot in your lenses may be a factor in getting the best vision in your glasses. Continue your artificial tears as instructed. If anything changes, please do not hesitate to give us a call back at: [phone]. Thank you for choosing [facility] and allowing us to be a part of your eye care. MIA Garza documented in this encounter Progress Notes Samreen Diaz [place] - 03/02/2018 9:00 AM CDT Merissa Nelson MD [address] [address] Patient accompanied by: unaccompanied Sent by: Dr. Flores Last dilated: Past eye treatment: No previous patching, No previous Strabismus Surgery, no eye exercises or previous prism, first glasses age 15 yo. Past Surgical History: Procedure Laterality Date ??? ADENOIDECTOMY PRIMARY; AGE 10/OVER childhood ??? ATRIAL ABLATION SURGERY ??? CAROTID ENDARDECTOMY ??? HEMORRHOIDECTOMY EXTERNAL COMPLETE 1973 ??? PROSTATE SURGERY ??? REPR INIT ING HERNIA 5YR/MORE; RDUC childhood ??? TONSILLECTOMY PRIM/SEC; AGE 10/OVER childhood ??? VASECT UNI/SENAIT-SEP PROC-POSTOP 1983 Tyler Muro is a 67 y.o. male who presents to orthoptic clinic today in follow up for glasses and another refraction. Pt states that he still continues to have troubles with new/updated pair of glasses. Cannot find a spot in glasses where he can see clear through. Pt notices fuzzy images. Old pair still works a lot better. Pt spoke to Brandy and she mentioned that it could be how they make the newer lenses now. Pt denies diplopia. Blurry vision seems to be up close. Been seeing [facility] and has notice some stuff on lashes. Eyes have been dried so instructed to use AT's. 1gtt OU, BID. No family or friends mentioned strab to pt. Only change since getting the pair of glasses that works for pt is a carotid artery. No other changes. Patient/parents denies redness, matering, tearing, photophobia, and pain. FH: mother with cataracts. Father with glaucoma. No fh of strab Social: non-smoker. 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 Lives with . REVIEW OF SYSTEMS: Constitutional: (-), ENT: (-), Respiratory: (-), Cardiovascular: (-), Gastrointestinal: (-), Musculoskeletal: (-), Skin: (-), Neurologic: (-), Psychiatric: (-), Heme: (-), Menarche not applicable started, Developmental (-), Endocrine (-) ASSESSMENT/PLAN: Encounter Diagnoses Name Primary? ? ? Blurry vision Blurry/fuzzy vision still persist with new glasses N>D. Pt still prefers old glasses - acuity is better and clear. No diplopia. ??? Myopia of both eyes with astigmatism and presbyopia Pt likes a bit more power today compare to last visit. With Red/Green filter, pt states that acuity is equally clear. Try new SRx and talk to brandy about the new technology vs old technology of how lenses are made. Perhaps new technology is not fitting and pt may need to rely on old technology, if it is an option? . ??? Dry eyes, bilateral Continue AT's as needed. May help improved blurry vision when refractive surface is smoother. Will forward notes to MD for advice and call pt back if anything changes. Pt aware that if there is no call back, then there will be no change and pt to get glasses done. Follow back up with [place] prn. Manoj Flores MD - 03/02/2018 9:00 AM CDT I have read the interval h/p and agree with the a/p. This patient is need of a change in rx to improve acuity. radio time buyer specs Manoj Flores MD documented in this encounter Plan of Treatment Upcoming Encounters Date Type Specialty Care Team Description 07/12/2022 Appointment Optometry Linda Dorsey , OD [address] [place], [place] [phone] (Wo rk) documented as of this encounter Visit Diagnoses Diagnosis Blurry vision - Primary Other specified visual disturbances Myopia of both eyes with astigmatism and presbyopia Dry eyes, bilateral Tear film insufficiency, unspecified documented in this encounter Care Teams Integration Lead Relationship Specialty Start Date End Date Merissa Nelson MD PCP - General 10/23/08 [address] [place] [address] documented as of this encounter
--- OUTSIDE RECORDS SUMMARY | 2022-06-14 08:39 | XMS_ITS | Encounter Summary ---
:1950 Author Organization [facility] Address [address] [place] [address] Care Team Providers Name Role Phone Merissa Nelson MD Primary Care Provider Reason for Visit Consult/Transfer Care (Routine) - Closed Specialty Diagnoses / Procedures Referred By Contact Refer red To Contact Ophthalmology Diagnoses Diplopia Monika Funk, OD Bl Ophthalmology [address] [place], [place] [address] [place] [address] Fax: Referral ID Status Reason Start Date Expiration Date Visits Requ ested Visits Authorized [id number] Closed 12/20/2017 03/21/2019 1 1 Encounter Details Date Type Department Care Team Description 01/10/2018 Office Visit [place] Manoj Flores, Anabela vis ion Ophthalmology (Primary Dx) [address] [place], [place] [address] [place], [place] [phone] Social History Tobacco Use Types Packs/Day Years Used Date Smoking Tobacco: Former Cigarettes 0.3 23 Quit : 08/08/1988 Smokeless Tobacco: Never Alcohol Use Standard Drinks/Week Comments Yes 10 (1 standard drink = 0.6 oz pure alcoh ol) Sex Assigned at Date Recorded Not on file documented as of this encounter Progress Notes Manoj Flores MD - 01/10/2018 7:50 AM CDT Supa Reyes MD [facility] [address] , [place] [address] Patient accompanied by: unaccompanied Sent by: Dr Funk Last dilated: 06/24 Past eye treatment: No previous patching, No previous Strabismus Surgery, no eye exercises or previous prism, first glasses age 15 yo. As a kid fell out of a tree with LOC less than 15 min-- hit back of head on a rock. Full term, normal bw. Past Surgical History: Procedure Laterality Date ??? ADENOIDECTOMY PRIMARY; AGE 12/OVER childhood ??? ATRIAL ABLATION SURGERY ??? CAROTID ENDARDECTOMY ??? HEMORRHOIDECTOMY EXTERNAL COMPLETE 1973 ??? PROSTATE SURGERY ??? REPR INIT ING HERNIA 5YR/MORE; RDUC childhood ??? TONSILLECTOMY PRIM/SEC; AGE 10/OVER childhood ??? VASECT UNI/SENAIT-SEP PROC-POSTOP 1983 I have personally reviewed the patient's allergies, medications, past medical history and problem list in detail and updated the patient record as necessary. Tyler Muro is a 67 y.o. male who presents today for blurry vision. Vision is clearer when looking left then when in primary position since August 2016 upon getting the current glasses. Does not have the same problem with old glasses. Denies diplopia. Carotid artery surgery January 2017. Prostate reduction November 2016-- no cancerous cells. Denies ptosis, trouble swallowing, abnormal leg weakness. Denies having diabetes, thyroid condition, skin cancer or other cancers. FH: mother with cataracts. Father with glaucoma. No fh of strab Social: non-smoker. 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 Lives with . Review of Systems CONSTITUTIONAL: (-),ENT: (-) , PULMONARY: short breath after more than 2 flights of stares, CARDIOVASCULAR: (-), GASTROINTESTINAL: (-), GENITOURINARY: (-), MUSCULOSKELETAL: knee pain, SKIN: (-), NEUROLOGIC: (-), HEME: (-) Exam: See ophthalmic forms. Imp/Plan: Encounter Diagnosis Name Primary? Blurry vision optial centers are left and inferior to fixation. He is overminused Pt happy with new rx F/u prn. Advised to call in 2 weeks if still off No alignment or motility d/o documented in this encounter Plan of Treatment Upcoming Encounters Date Type Specialty Care Team Description 07/12/2022 Appointment Optometry Linda Dorsey , OD [address] [place], [place] [phone] (Wo rk) documented as of this encounter Visit Diagnoses Diagnosis Blurry vision - Primary Other specified visual disturbances documented in this encounter Care Teams Ship Steward Relationship Specialty Start Date End Date Merissa Nelson MD PCP - General 10/23/08 [address] [place] [address] documented as of this encounter
--- OUTSIDE RECORDS SUMMARY | 2022-06-14 08:39 | XMS_ITS | Encounter Summary ---
:1950 Author Organization [facility] Address [address] [place] [address] Care Team Providers Name Role Phone Merissa Nelson MD Primary Care Provider Reason for Referral Consult/Transfer Care (Routine) - Closed Specialty Diagnoses / Procedures Referred By Contact Refer red To Contact Ophthalmology Diagnoses Diplopia Monika Funk, OD Ophthalmology [address] [facility] [address] [facility]. [place], [place] [address] [place] [address] Fax: Referral ID Status Reason Start Date Expiration Date Visits Requ ested Visits Authorized [id number] Closed 12/20/2017 03/21/2019 1 1 Scheduling Instructions Your provider has recommended an appoint ment with [facility]. You may call [phone] to schedule your a ppointment. If you prefer, a flight crew scheduler will contact you within the next 3 business d ays to assist you in setting up this appointment. We suggest you call your [email or web address] insurance company about your coverage and benefits for this appointment. Reason for Visit Reason Comments Eyeglasses, Problem Pt states he has been fight ing these glasses for the past year, DVA OU not clear when lookin g straight a head, when pt looks off center to the left with both eyes VA clear, star bursts noted with lights OU mainly notes this at night, NVA OU stable, Dryness OU, AT's OU once daily, DAVIS 09/07/16 Good. Encounter Details Date Type Department Care Team Description 12/20/2017 Office Visit [facility] TimurpremgirishMonika Diplopia (Primary Dx) [address] J, OD [place], [place] [address] [phone] [place] [address] Social History Tobacco Use Types Packs/Day Years Used Date Smoking Tobacco: Former Cigarettes 0.3 23 Quit : 08/08/1988 Smokeless Tobacco: Never Alcohol Use Standard Drinks/Week Comments Yes 10 (1 standard drink = 0.6 oz pure alcoh ol) Sex Assigned at Date Recorded Not on file documented as of this encounter Progress Notes GoodMonika, OD - 12/20/2017 5:20 PM CDT Chief Complaint Patient presents with ??? Eyeglasses, Problem Pt states he has been fighting these glasses for the past year, DVA OU not clear when looking straight a head, when pt looks off center to the left with both eyes VA clear, star bursts noted with lights OU mainly notes this at night, NVA OU stable, Dryness OU, AT's OU once daily, DAVIS 09/07/16 Good. History Reviewed Assessment ICD-10-CM 1. 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 Left eye seems a tad lower in his face than right. He had left-sided carotid artery surgery last year and he still has some numbness on that side, but improving. Decompensated vertical phoria or other etiology? Cover test at near: ortho in multiple positions of gaze. Reviewed the VF and mac OCT test done 06/2017 which was within normal limits. Current oh frame does have a bit of wrap to it, and he is wearing polycarbonate. He does go backto his older glasses at times to watch TV. Will check with optical about prior glasses made, plastic material different, less frame faceform prior frames or same frames? During refraction he felt like phoropter was off center, when he adjusted it to look centered it seemed to me he was looking off to the left a bit-eccentric viewing like? This is same complaint he has had in the past through his glasses, that things are clearer when he is looking a bit off to the left. Pupils are small, cataract appears mild. Last OCT did not show any evidence of ERM. Reviewed 2017 OCT again at instrument post visit and it was fine. Plan See patient instructions. Please schedule with Dr. Flores for eye muscle consult. Discussed with patient that vertical prism seems to help today, We can give him glasses with some vertical prism, which I think will help with hiscomplaints, but just want to be sure there isn't something else we should be checking. will send summary note to Dr. Flores. Patient is ok with this plan. Monika Funk,IDALIA documented in this encounter Plan of Treatment Upcoming Encounters Date Type Specialty Care Team Description 07/12/2022 Appointment Optometry Linda Dorsey , OD [address] [place], [place] [phone] (Wo rk) Scheduled Referrals Name Type Priority Associated Diagnoses Order S chedule Ophthalmology Referral Routine Diplopia Ordered: 12/20 Consult-Adult/Peds documented as of this encounter Visit Diagnoses Diagnosis Diplopia - Primary documented in this encounter Care Teams Computer Operations Manager Relationship Specialty Start Date End Date Merissa Nelson MD PCP - General 10/23/[address] [place] [address] documented as of this encounter
--- OUTSIDE RECORDS SUMMARY | 2022-06-14 08:39 | XMS_ITS | Clinical Summary ---
:1950 Author Organization [facility] Address [address], [place] [address] Care Team Providers Name Role Phone Merissa Nelson MD Primary Care Provider Source Comments You are receiving this document as you are listed as the primary care provider,follow-up provider, or the patient has been referred to you for consultation.This is in compliance with the Medicare and Medicaid EHR Incentive Program,which states Providers who transition their patient to another setting of careor provider of care or refers their patient to another provider of care shouldprovide summarycare record for each transition of care or referral. [facility] Allergies No known active allergies Medications Medication Sig Dispensed Refills Start Date End Date Status LISINOPRIL OR Take 10 mg by 0 Ac tive mouth daily. atorvastatin (LIPITOR) Take 20 mg by 0 Active 20 MG tablet mouth daily. rivaroxaban (XARELTO) 20 Take 20 mg by 0 Active MG tablet mouth every evening with a meal. sotalol (BETAPACE) 80 MG Take 80 mg by 0 Active tablet mouth two times a day. amLODIPine (NORVASC) 5 Take 5 mg by 0 Active MG tablet mouth daily. chlorthalidone Take 25 mg by 0 A ctive (HYGROTON) 25 MG tablet mouth daily. losartan (COZAAR) 100 MG Take 100 mg by 0 Active tablet mouth daily. potassium chloride 20 Take by mouth 0 Active MEQ/15ML (10%) solution daily. Mix each dose with at least 120 mL of cold water or juice before administration. Active Problems Problem Noted Date PATRICIA (obstructive sleep apnea) 11/17/2020 Typical atrial flutter 11/17/2020 Chronic anticoagulation 01/10/2019 Dyslipidemia 01/10/2019 Atrial fibrillation 05/11/2018 Myopia of both eyes with astigmatism and presbyopia Dry eyes, bilateral 03/02/2018 Chalazion left upper eyelid 06/05/2017 Blepharitis of upper and lower eyelids of both eyes Carotid stenosis, left 01/28/2017 Essential hypertension 11/13/2016 Hypertrophy of prostate with urinary obstruction 11/13 Elevated prostate specific antigen (PSA) 02/02/2008 Obesity Overview: 04/16/2005 BMI 35.09 Epic Tinnitus Overview: Epic Resolved Problems Problem Noted Date Resolved Date Blurry vision 03/02/2018 11/17/2020 Immunizations Name Administration Dates Next Due HepA, Unspecified Formulation 08/19/1998 IPV (Polio) 08/19/1998 Pfizer (Comirnaty) COVID-19, 12+ Yrs 10/24/2020, 10/03/2020 Purple Top Td 01/23/1995 Td (7+ yrs) 04/16/2005 Varicella 10/02/1997 (Deferred: Immune by Disease) Family History Medical History Relation Name Comments Glaucoma Father Hypertension Father Cataract Mother Thyroid Disorder Daughter 3 graves Amblyopia/Strabismus Negative Family History Diabetes Negative Family History Diabetes, Type II Negative Family History Macular Degeneration Negative Family History Retinal Detachment Negative Family History Relation Name Status Comments Father Alive 1926 Mother Alive 192 Brother 1 Alive Vlad, 1952 Brother 2 Alive Rios, 1954 Daughter 1 Alive Roz, 1977 Daughter 2 Alive Joyce, 1981 Daughter 3 Alive Angie, 1984 Sister Alive Odalis, 1956 Social History Tobacco Use Types Packs/Day Years Used Date Smoking Tobacco: Former Cigarettes 0.3 23 Quit : 08/08/1988 Smokeless Tobacco: Never Alcohol Use Standard Drinks/Week Comments Yes 10 (1 standard drink = 0.6 oz pure alcoh ol) Sex Assigned at Date Recorded Not on file Last Filed Vital Signs Vital Sign Reading Time Taken Comments Blood Pressure 142/80 06/12/2009 6:32 PM PNEUMATIC TOOL REPAIRER Pulse 66 06/12/2009 6:32 PM PNEUMATIC TOOL REPAIRER Temperature 36.2 ??C (97.1 ??F) 06/12/2009 6:32 PM PNEUMATIC TOOL REPAIRER Respiratory Rate 16 06/12/2009 6:32 PM PNEUMATIC TOOL REPAIRER Oxygen Saturation 96% 06/12/2009 6:32 PM PNEUMATIC TOOL REPAIRER Inhaled Oxygen Concentration - - Weight 124.1 kg (273 lb 8 oz) 06/12/2009 6:32 PM PNEUMATIC TOOL REPAIRER Height 186.7 cm (6' 1.5) 04/16/2005 8:46 AM CDT Body Mass Index 35.59 04/16/2005 8:46 AM CDT Plan of Treatment Upcoming Encounters Date Type Specialty Care Team Description 07/12/2022 Appointment Optometry Linda Dorsey , OD [address] [place], [place] [phone] (Wo rk) Health Maintenance Due Date Last Done Comments Hep C Screening (Preventive 1950 Services) HepA (2 of 2 - Risk 2-dose 02/16/1999 08/19/1998 series) Sigmoidoscopy 04/27/2010 04/27/2005, 11/06/1997 Cholesterol 10/15/2011 10/14/2006, 04/16/2005, 10/01/1997 DTaP/Tdap/Td (2 - Tdap) 11/20/2020 11/20/2010, 04/16/2005, 04/16/2005, Additional history exists COVID-19 Vaccine (3 - 12/19/2020 10/24/2020, 10/03/2020 Booster for Pfizer series) Medicare Annual Wellness 08/08/2021 Visit Influenza (#1) 2022 06/30/2020, 07/03/2018, 11/02/2016, Additional history exists IPV (Polio) Aged Out 08/19/1998 No longer eligib le based on patient 's age to complete this topic Pneumococcal 65+ Yrs Completed 05/14/2015, 10/09/2014 Zoster/Shingles Completed 04/13/2019, 02/02/2019, 01/19/2013 HepB Aged Out No longer eligib le based on patient 's age to complete this topic Hib Aged Out No longer eligib le based on patient 's age to complete this topic MCV4 Aged Out No longer eligib le based on patient 's age to complete this topic Insurance Payer Benefit Plan / Subscriber ID Effective Phone Address T ype Group Dates [employer] [id number] 2018-Prese [phone] Medicare ADVANTAGE nt 79 [phone] [id number] (Work) Tyler Muro Personal/Family Self 1950 [phone] [address] (Home) [place] [address] Advance Directives Latest Code Status on File Code Status Date Activated Date Inactivated Comments 04/29/2003 4:03 PM 04/29/2003 4:03 PM Care Teams Insole Tacker Relationship Specialty Start Date End Date Merissa Nelson MD PCP - General 10/23/[address] [place] [address]
--- OUTSIDE RECORDS SUMMARY | 2022-06-14 08:40 | XMS_ITS | Encounter Summary ---
:1950 Author Organization [facility] Address [address] [place] [address] Care Team Providers Name Role Phone Unassigned, Provider Primary Care Provider Unavailable Reason for Visit Reason Onset Date Comments Medication Request 03/02/2008 Encounter Details Date Type Department Care Team Description 03/02/2008 Telephone Careline Marzena Baker RN Medication Request [address] [place], [place] [address] Social History Tobacco Use Types Packs/Day Years Used Date Smoking Tobacco: Former Cigarettes 0.3 23 Quit : 08/08/1988 Alcohol Use Standard Drinks/Week Comments Yes 10 (1 standard drink = 0.6 oz pure alcoh ol) Sex Assigned at Date Recorded Not on file documented as of this encounter Nursing Notes Marzena Baker - 03/02/2008 7:38 PM CDT 7:35 PM, Call transferred from appt center to designer/writer. Pt calling back and states pharmacist doesn't have any record of this order. Verified correct address and phone number for [facility] in [facility]. Order was called into correct pharmacy. 7:37 PM, Called [facility] again. Spoke with pharmacist Macy again. Macy states another store had to close and they are experiencing a larger than normal volume of med requests. The person who told pt there was no order was mistaken and they do in fact have this order, it wasn't typed up yet however. Macy states she will personally call pt herself and let him know they are working on his Rx now. Marzena Baker RN Marzena Baker - 03/02/2008 5:50 PM CDT Concern: Pt transferred from [facility]. Pt got muscle relaxers. Pt is in [place] now and is asking for muscle relaxers sent to [place]. Pt is in a hospital for his father. Pt had some back problemsand states he is having muscle spasms, in january. Pt happens if he moves a certain way he gets a muscle spasm in his back. Pt states he still has some left, but they are at home. Pain is @ belt line in back, pain does radiate into leg to just above knee in back of thigh. Back is spasming when pt twists or gets up. States he sits and gets relief, but when he tries to get up he has pain. Call disconnected, designer/writer called back to pt. This episode started this am when pt got up out of bed. PMH: Patient Active Problem List Diagnoses Code ??? weight problem 278.00 ??? tinnitus, with slight hearing loss 388.30 ??? Elevated Prostate Specific Antigen (PSA) 790.93 MEDS: Current outpatient prescriptions Medication Sig ??? CYCLOBENZAPRINE HCL 10 MG OR TABS Take 1 tablet by mouth three (3) times a day Allergies:No Known Allergies. PLAN: Ice to back as needed. Paged Dr Gerald Guevara @ 5:46 PM. Returned page @ 5:47 PM. Recommended: 1. Cyclobenazaprine 10 mg tablets, Take one pill by mouth every 8 hrs prn muscle spasms, #10, no refills. Called pt/family with Dr lewis @ 5:50 PM. Pt is trying to find a [facility]. The family is trying to find this and designer/writer is also working to find a number for the [facility]. [place] [facility] [place] number for [facility] [place], Pt thinks the [facility] dianne and [facility]. [facility] [place] [facility] in [place], [place]: 1. [facility] and this is a 24 hr pharmacy [phone] 2. [facility], not a 24 hr pharmacy. [phone]. Called preferred [facility] @ 6:19 PM. Gave verbal order for this med to female pharmacist Macy. Gave Dr Guevara's office number, [facility] number, as well as all pt info requested by pharmacist. If pharmacy has any questions, to c/b to designer/writer, number was given. Pt/Caller agrees with plan and will c/b if sx change or worsen. Marzena Baker RN documented in this encounter Plan of Treatment Upcoming Encounters Date Type Specialty Care Team Description 07/12/2022 Appointment Optometry Linda Dorsey , OD [address] [place], [place] [phone] (Wo rk) documented as of this encounter Visit Diagnoses Not on filedocumented in this encounter Care Teams Applied Research Director Relationship Specialty Start Date End Date Unassigned, Provider PCP - General 02/02/08 10/22/[address] [place] [address] documented as of this encounter
--- OUTSIDE RECORDS SUMMARY | 2022-06-14 08:40 | XMS_ITS | Encounter Summary ---
:1950 Author Organization [facility] Address [address] [place] [address] Care Team Providers Name Role Phone Dameon Li MD Primary Care Provider Encounter Details Date Type Department Care Team Description 11/25/2006 Notes/Orders [facility] Tyler Ledesma, Elevated Prostate [address] [facility] Specific Antigen [place], [place] [address] 360 [facility] (PSA) [phone] [address] [place] [address] Social History Tobacco Use Types Packs/Day Years [...] Optometry Linda Dorsey , OD [address] [place], [place] [phone] (Wo rk) documented as of this encounter Procedures Procedure Name Priority Date/Time Associated Diagnosis Comme nts PROSTATIC SPECIFIC Routine 11/25/2006 10:07 AM Elevated Prosta te Results for this ANTIGEN (DIAGNOSTIC CDT Specific Antigen proc edure are in F/U) (PSA) the results section. documented in this encounter Results (ABNORMAL) PROSTATIC SPECIFIC ANTIGEN (F/U) (11/25/2006 10:07 AM CDT) [facility] Method Time Signature Prostatic Spec 3.70 (H) 0 - 3.5 [facility] Ag ng/ml Specimen Anatomical Collection Method Collection Time Receive d Time (Source) Location / / Volume Laterality 11/25/2006 10:07 11/25/2006 AM CDT 10:08 AM CDT Tyler Ledesma MD LAB_1 Performing Organization Address City/State/ZIP Code Phon e Number [facility] [phone] [facility] [address] [address] documented in this encounter Visit Diagnoses Diagnosis Elevated prostate specific antigen (PSA) documented in this encounter Care Teams Boring Machine Operator Vertical Relationship Specialty Start Date End Date Dameon Li MD PCP - General 11/24/06 02/01/[address] [place] [address] [phone] documented as of this encounter
--- OUTSIDE RECORDS SUMMARY | 2022-06-14 08:40 | XMS_ITS | Encounter Summary ---
:1950 [facility] Address [address] [place] [address] Care Team Providers Name Role Phone Unassigned, Provider Primary Care Provider Unavailable Reason for Visit Reason Comments BACK PAIN Encounter Details Date Type Department Care Team Description 02/02/2008 Office Visit [facility] Erin Nelson Bac k Muscle Spasm (Primary Dx); Practice PA-C Elevated Prostate Specific Antigen (PSA) [address] [place] [address] [phone] Social History Tobacco Use Types Packs/Day Years Used Date Smoking Tobacco: Former Cigarettes 0.3 23 Quit : 08/08/1988 Alcohol Use Standard Drinks/Week Comments Yes 10 (1 standard drink = 0.6 oz pure alcoh ol) Sex Assigned at Date Recorded Not on file documented as of this encounter Last Filed Vital Signs Vital Sign Reading Time Taken Comments Blood Pressure 150/90 02/02/2008 9:20 AM CDT Pulse 60 02/02/2008 9:20 AM CDT Temperature 36.2 ??C (97.1 ??F) 02/02/2008 9:20 AM CDT Respiratory Rate 12 02/02/2008 9:20 AM CDT Oxygen Saturation - - Inhaled Oxygen Concentration - - Weight 124.6 kg (274 lb 12.8 oz) 02/02/2008 9:20 AM CDT Height - - Body Mass Index 35.76 04/16/2005 8:46 AM CDT documented in this encounter Progress Notes Erin Cortes - 02/02/2008 10:06 AM CDT SUBJECTIVE: Tyler Muro is a 57 yr male who presents to the clinic with Acute LBP (<6 weeks). He has occasional problems with back muscle spasms, can't even remember the last time he had a problem. Generally manages the flares with ibuprofen, ice, heat and rest. Current problem started 3 days ago, he was throwing the sheets onto the bed and got a severe spasm. Stayed home from work that day and the following, used ibuprofen, heat and rested. Went to work yesterday, was feeling quite a bit better, then last night was standing brushing his teeth and twisted funny again, setting off the spasm again. Denies any radiation to his lower extremities, no numbness or tingling, no bowel or bladder problems. Also questions about repeating PSA. Last prostate biopsy by Urology in October 2007, don't have records of biopsy results, but per patient there was some slight abnormality, and he was to follow up with repeat PSA in 2007. No current outpatient prescriptions on file prior to encounter. No Known Allergies. Patient Active Problem List Diagnoses Code ??? weight problem 278.00 ??? tinnitus, with slight hearing loss 388.30 OBJECTIVE: BP 150/90 Pulse 60 Temp (Src) 97.1 ??F (36.2 ??C) (Oral) Resp 12 Wt 274 lb 12.8 oz (124.648 kg) Vitals reviewed by me. Repeat BP: 140/92 Appearance moves with discomfort Physical Exam: Normal findings: gait normal, heel and toe walking intact, deep tendon reflexes at knees and ankles +2, sensation intact at medial, dorsal, and lateral aspects of the feet, strength normal throughout and straight leg raising negative on both legs Abnormal findings: paraspinous area tender to palpation in the lower back and ROM decreased , flexion about 25% of normal, otherwise rom normal SKIN: normal Localizing findings: none ASSESSMENT: Back muscle spasm Elevated psa PLAN: See orders - Rx for flexeril, continue ibuprofen therapy, given handout with stretching exercises Follow up: As needed. Psa lab test ordered, he will rtc in Apr for that ERIN CORTES PA-C 02/02/2008, 10:04 AM documented in this encounter Plan of Treatment Upcoming Encounters Date Type Specialty Care Team Description 07/12/2022 Appointment Optometry Willian Linda E , OD [address] [place], [place] [phone] (Wo rk) documented as of this encounter Results (ABNORMAL) PSA (SCREEN) (V76.44) (04/17/2008 6:17 PM CDT) [facility] Method Time Signature Prostatic Spec 5.50 (H) 0 - 4.5 [facility] Ag ng/ml Specimen Anatomical Collection Method Collection Time Receive d Time (Source) Location / / Volume Laterality 04/17/2008 6:17 PM 8 6:45 CDT PM CDT Erin Nelson PA-C LAB_1 Performing Organization Address City/State/ZIP Code Phon e Number [facility] [phone] [facility] [address] [place] [address] documented in this encounter Visit Diagnoses Diagnosis Back muscle spasm - Primary Other symptoms referable to back Elevated prostate specific antigen (PSA) documented in this encounter Care Teams Fund Accountant Relationship Specialty Start Date End Date Unassigned, Provider PCP - General 02/02/08 10/22/08 [address] [place] [address] documented as of this encounter
--- OUTSIDE RECORDS SUMMARY | 2022-06-14 08:40 | XMS_ITS | Encounter Summary ---
:1950 Author Organization [facility] Address [address] [place] [address] Care Team Providers Name Role Phone Dameon Li MD Primary Care Provider Encounter Details Date Type Department Care Team Description 05/26/2007 Notes/Orders [facility] Dameon Li MD weight problem Practice [address] [place] [address] (Primary Dx) [address] [phone] (Wo rk) Social History Tobacco Use Types [...] Optometry Linda Dorsey , OD [address] [place], [place] [phone] (Wo rk) documented as of this encounter Results OTHER - LAB (06/14/2007 6:05 PM CORPORATE GENERAL MANAGER) Component Value Ref Test Analysis Performed At [facility] Range Method Time Signature Epic Other Additional [facility] Orders Testing Ordered by Specimen Anatomical Collection Method Collection Time Receive d Time (Source) Location / / Volume Laterality 06/14/2007 6:05 PM 7 6:06 CORPORATE GENERAL MANAGER PM CORPORATE GENERAL MANAGER Dameon Li MD LAB_1 Performing Organization Address City/State/ZIP Code Phon e Number [facility] [phone] [facility] [address] [address] documented in this encounter Visit Diagnoses Diagnosis weight problem - Primary Obesity, unspecified documented in this encounter Care Teams Fuse Cutter Relationship Specialty Start Date End Date Dameon Li MD PCP - General 11/24/06 02/01/[address] [address] documented as of this encounter
--- OUTSIDE RECORDS SUMMARY | 2022-06-14 08:40 | XMS_ITS | Encounter Summary ---
:1950 Author Organization [facility] Address [address] [place] [address] Care Team Providers Name Role Phone Merissa Nelson MD Primary Care Provider Reason for Visit Reason Comments MOLE,REMOVAL Bx. Encounter Details Date Type Department Care Team Description 10/28/[address] [facility] Dameon Li MD [facility] [address] [place] [address] (Primary Dx) [address] [address] [phone] (Wo rk) Social History Tobacco Use Types Packs/Day Years Used Date Smoking Tobacco: Former Cigarettes 0.3 23 Quit : 08/08/1988 Alcohol Use Standard Drinks/Week Comments Yes 10 (1 standard drink = 0.6 oz pure alcoh ol) Sex Assigned at Date Recorded Not on file documented as of this encounter Progress Notes Dameon Li - 10/28/2006 12:00 AM CDT Patient, 56 years old, came for his skin mole excision. Last time I did a physical exam there was one mole distinctively darker and had irregular border and irregular color. OBJECTIVE: There was about 0.6 cm size, irregular border, black and brown skin lesion in his low back area. ASSESSMENT/PLAN: Skin mole. Under local anesthesia with a sterile technique, I injected about 1 cc of lidocaine with epi and I did a deep shave excision. Specimen was sent for pathology. After that, I cauterized bleeding, applied antibiotic ointments, and put some bandage on it. Patient tolerated the procedure very well. He will apply antibiotic ointment next few days. A cc: documented in this encounter Plan of Treatment Upcoming Encounters Date Type Specialty Care Team Description 07/12/2022 Appointment Optometry Linda Dorsey , OD [address] [place], [place] [phone] (Wo rk) documented as of this encounter Procedures Procedure Name Priority Date/Time Associated Diagnosis Comme nts SURGICAL PATH Routine 10/28/2006 9:00 AM Results for this CDT procedure are i n the results section . documented in this encounter Results SURGICAL PATH (10/28/2006 9:00 AM CDT) [facility] Method Time Signature 9911 (NOTE) [facility] Surgical Final Report Patient Name: BLAS MURO Taken: 10/28/2006 Received: 10/28/2006 Reported: 11/01/2006 Physician(s): DAMEON LI ([id number]) ? Final Pathologic Diagnosis Skin, low back, shave biopsy -- ?-- Compound nevus with architectural disorder (see com ment) Comments No significant cytologic atypia is present. ??The nevus exte nds to a peripheral margin and focally to a deep margin. ksa1/10/31/2006 Electronically Signed Out By ? Peggy Weeks MD ([id number]) Procedures/Addenda Clinical History Lesion on lower back Gross Description The specimen is received in formalin and labeled with the pa tient' s name. ??The specimen consists of a morris-pink 0.[address] dimension skin shave biopsy that has a dark brown 0.6 cm les ion on the skin surface. ??The specimen is inked black, serially sectio caden and entirely submitted in one cassette. ??js jds/10/29/2006 Microscopic Description Microscopic examination is performed on two slides. ksa110/31/2006 Peggy Weeks MD ([id number]) Specimen Anatomical Collection Method Collection Time Receive d Time (Source) Location / / Volume Laterality 10/28/2006 9:00 AM 7 6:00 CDT PM CDT Dameon Li MD LAB_1 Performing Organization Address City/State/ZIP Code Phon e Number [facility] [phone] [facility] [address] [phone] documented in this encounter Visit Diagnoses Diagnosis Skin disorder - Primary Unspecified disorder of skin and subcuta neous tissue documented in this encounter Care Teams Unemployment Benefits Claims Taker Relationship Specialty Start Date End Date Merissa Nelson MD PCP - General 10/04/06 11/23/[address] [place] [address] documented as of this encounter
--- OUTSIDE RECORDS SUMMARY | 2022-06-14 08:40 | XMS_ITS | Encounter Summary ---
:1950 Author Organization [facility] Address [address] [address] Care Team Providers Name Role Phone Merissa Nelson MD Primary Care Provider Encounter Details Date Type Department Care Team Description 12/25/2013 Orders Only [facility] Merissa Nelson, Elevated prostate 1654 Guido Pepe MD specific antigen (PSA) [place] [phone] [address] (Primary Dx) [phone] [place] [address] (Wo rk) Social History Tobacco Use Types [...] Linda Dorsey , OD [address] [place], [place] [phone] (Wo rk) documented as of this encounter Visit Diagnoses Diagnosis Elevated prostate specific antigen (PSA) - Primary documented in this encounter Care Teams Rotary Drum Tanner Relationship Specialty Start Date End Date Merissa Nelson MD PCP - General 10/23/[address] [place] [address] documented as of this encounter
--- OUTSIDE RECORDS SUMMARY | 2022-06-14 08:40 | XMS_ITS | Encounter Summary ---
:1950 Author Organization [facility] Address [address] [place] [address] Care Team Providers Name Role Phone Merissa Nelson MD Primary Care Provider Reason for Visit Reason Comments Dental Conversion Legacy EDR to Sieper convers ion Encounter Details Date Type Department Care Team Description 01/13/2017 Dental Conversion [facility] Dayanna Tellez, [facility] [address] [address] [place], [place] [phone] [address] Social History Tobacco Use Types Packs/Day Years Used Date Smoking Tobacco: Former Cigarettes 0.3 23 Quit : 08/08/1988 Alcohol Use Standard Drinks/Week Comments Yes 10 (1 standard drink = 0.6 oz pure alcoh ol) Sex Assigned at Date Recorded Not on file documented as of this encounter Discharge Summaries Interface, In Edr Dental Conversion - 09/17/2013 12:00 AM CST EDR Provider Popup Note, entered 09/17/2013: BW received from [facility]--BW dated 09/19/12 in DDS area FARMER Interface, In Edr Dental Conversion - 09/10/2013 12:00 AM CST EDR dismissed Clerical Popup Note, entered 09/10/2013: update all forms and sign tx est FARMER documented in this encounter Miscellaneous Notes Miscellaneous - Interface, In Edr Dental Conversion - 09/21/2013 12:00 AM FROG FARMER 09/21/2013: Films Scanned From Outside DDS: 09-08-2012 4 Bw xrays 014 FARMER documented in this encounter Plan of Treatment Upcoming Encounters Date Type Specialty Care Team Description 07/12/2022 Appointment Optometry Linda Dorsey , OD [address] [place] [phone] (Wo rk) documented as of this encounter Visit Diagnoses Not on filedocumented in this encounter Care Teams Acid Purifier Relationship Specialty Start Date End Date Merissa Nelson MD PCP - General 10/23/[address] [place] [address] documented as of this encounter
--- OUTSIDE RECORDS SUMMARY | 2022-06-14 08:40 | XMS_ITS | Encounter Summary ---
:1950 Author Organization [facility] Address [address], [place] [address] Care Team Providers Name Role Phone Merissa Nelson MD Primary Care Provider Encounter Details Date Type Department Care Team Description 12/25/2013 Orders Only [facility] [address] [place], [place] [address] Social History Tobacco Use Types Packs/Day Years [...] Optometry Linda Dorsey , OD [address] [place], [place] [phone] (Wo rk) documented as of this encounter Procedures Procedure Name Priority Date/Time Associated Diagnosis Comme nts PROSTATIC SPECIFIC Routine 12/25/2013 11:48 AM Re sults for this ANTIGEN (DIAGNOSTIC CDT procedur e are in F/U) the results section. documented in this encounter Results (ABNORMAL) PROSTATIC SPECIFIC ANTIGEN (F/U) (12/25/2013 11:48 AM CDT) [facility] gist Method Time Signature Prostatic Spec 16.42 (H) 0.00 - [facility] ng/ml Specimen Anatomical Collection Method Collection Time Receive d Time (Source) Location / / Volume Laterality 12/25/2013 11:48 12/25/2013 AM CDT 11:50 AM CDT Narrative [facility] - 12/25/2013 5:24 PM C DT Performed at [facility], [address] ??[id number] Tyler Ledesma MD LAB_1 Performing Organization Address City/State/ZIP Code Phon e Number [facility] [phone] documented in this encounter Visit Diagnoses Not on filedocumented in this encounter Care Teams Epic Beacon Analyst Relationship Specialty Start Date End Date Merissa Nelson MD PCP - General 10/23/[address] [place] [address] documented as of this encounter
--- OUTSIDE RECORDS SUMMARY | 2022-06-14 08:40 | XMS_ITS | Encounter Summary ---
:1950 Author Organization [facility] Address [address], [place] [address] Care Team Providers Name Role Phone Dameon Li MD Primary Care Provider Encounter Details Date Type Department Care Team Description 06/14/2007 Orders Only [facility] weight problem [address] [place], [place] [address] Social History Tobacco Use [...] Optometry Linda Dorsey , OD [address] [place], [place] [phone] (Wo rk) documented as of this encounter Procedures Procedure Name Priority Date/Time Associated Diagnosis Comme nts PROSTATIC SPECIFIC Routine 06/14/2007 6:06 PM Res ults for this ANTIGEN (DIAGNOSTIC STEAM AND POWER SUPERVISOR procedur e are in F/U) the results section. OTHER - LAB Routine 06/14/2007 6:05 PM weight problem Results for this STEAM AND POWER SUPERVISOR procedure are i n the results section. documented in this encounter Results (ABNORMAL) PROSTATIC SPECIFIC ANTIGEN (F/U) (06/14/2007 6:06 PM STEAM AND POWER SUPERVISOR) [facility] gist Method Time Signature Prostatic Spec 5.03 (H) 0 - 3.5 [facility] ng/ml Specimen Anatomical Collection Method Collection Time Receive d Time (Source) Location / / Volume Laterality 06/14/2007 6:06 PM 7 6:07 STEAM AND POWER SUPERVISOR PM STEAM AND POWER SUPERVISOR Dameon Li MD LAB_1 Performing Organization Address [facility]/ZIP Code Phon e Number [facility] [phone] [facility] [address] [place] [phone] OTHER - LAB (06/14/2007 6:05 PM STEAM AND POWER SUPERVISOR) Component Value Ref Test Analysis Performed At [facility] gist Range Method Time Signature Epic Other [facility] Orders Testing Ordered by Specimen Anatomical Collection Method Collection Time Receive d Time (Source) Location / / Volume Laterality 06/14/2007 6:05 PM 7 6:06 STEAM AND POWER SUPERVISOR PM STEAM AND POWER SUPERVISOR Dameon Li MD LAB_1 Performing Organization Address [facility] Phon e Number [facility] [phone] [phone] documented in this encounter Visit Diagnoses Diagnosis weight problem Obesity, unspecified documented in this encounter Care Teams Drill Operator Automatic Relationship Specialty Start Date End Date Dameon Li MD PCP - General 11/24/06 02/01/[address] [place] [address] documented as of this encounter
--- OUTSIDE RECORDS SUMMARY | 2022-06-14 08:40 | XMS_ITS | Encounter Summary ---
:1950 Author Organization [facility] Address [address], [place] [address] Care Team Providers Name Role Phone Merissa Nelson MD Primary Care Provider Encounter Details Date Type Department Care Team Description 05/13/2009 Orders Only [facility] [address] [place], [place] [address] Social History Tobacco Use [...] Optometry Linda Dorsey , OD [address] [place], [place] [phone] (Wo rk) documented as of this encounter Procedures Procedure Name Priority Date/Time Associated Diagnosis Comme nts PROSTATIC SPECIFIC Routine 05/13/2009 4:30 PM Res ults for this ANTIGEN (DIAGNOSTIC CDT procedur e are in F/U) the results section. documented in this encounter Results (ABNORMAL) PROSTATIC SPECIFIC ANTIGEN (F/U) (05/13/2009 4:30 PM CDT) [facility] Method Time Signature Prostatic Spec 5.63 (H) 0 - 4.5 [facility] ng/ml Specimen Anatomical Collection Method Collection Time Receive d Time (Source) Location / / Volume Laterality 05/13/2009 4:30 PM 9 4:31 CDT PM CDT Tyler Ledesma MD LAB_1 Performing Organization Address City/State/ZIP Code Phon e Number [facility] [phone] [phone] documented in this encounter Visit Diagnoses Not on filedocumented in this encounter Care Teams Aircraft Structural Repair Mechanic Relationship Specialty Start Date End Date Merissa Nelson MD PCP - General 10/23/08 [address] [place] [address] documented as of this encounter
--- OUTSIDE RECORDS SUMMARY | 2022-06-14 08:40 | XMS_ITS | Encounter Summary ---
:1950 Author Organization [facility] Address [address] [place] [address] Care Team Providers Name Role Phone Merissa Nelson MD Primary Care Provider Reason for Visit Reason Comments EYE EXAM,YEARLY DAVIS 10/2008 [facility], Last eye exa m 2 years ago - when the light is dim or dark - notices a flash of li ght off to the right of his vision on the right side - there were some floaters at one time but they have seemed to have cleared up so me- onset about a week or so ago , has noticed that on the televisi on with the white lettering that there seems to be two sets of jason ers one on top of another - did not try closing one eye or the other - if tilting the head slightly then it would seem to go away Encounter Details Date Type Department Care Team Description 10/23/2013 Office Visit [facility] Jovani Terry Examination of eyes and visi on (Primary Dx); [address] M, OD Presbyopia [place], [place] [address] Social History Tobacco Use Types Packs/Day Years Used Date Smoking Tobacco: Former Cigarettes 0.3 23 Quit : 08/08/1988 Alcohol Use Standard Drinks/Week Comments Yes 10 (1 standard drink = 0.6 oz pure alcoh ol) Sex Assigned at Date Recorded Not on file documented as of this encounter Patient Instructions Patient InstructionsJovani Terry, OD - 10/23/2013 11:04 AM CDT [email or web address]. Many tests were done to check your eye health today including: pupil reaction, eye muscle function, peripheral (side) vision, visual acuity, and eye pressure. The health of your eyes was also checked, both on the outside as well as the inside of each eye. Your eyeglass prescription or contact prescription may have also been updated. Early detection of eye health problems is important to keep your eyes healthy over your lifetime. [facility] eye exam we are looking for signs of glaucoma, diabetes, high blood pressure, cataract, dry eye, eye allergies, and many other conditions. Frequently Asked Questions: Why do you use eye drops? We use a clear drop to dilate, or open the pupil wider. This allows us to have a clearer, wider view inside the eye to look for signs of eye disease. We use a different eye drop to check the pressure inside the eye; this is usually the yellow eye drop. How long will my eyes be blurry today? Your vision will be blurry up close for about an hour, and your eyes will stay dilated for about 4 hours. You will need to wear sunglasses when you are outside today. If you do not have any sunglasses with you, there are some disposable ones available. Please usecaution in getting around for the few hours that your eyes are dilated. How can I contact the clinic in the future? Appointment Center: [phone] Eye Dept: [phone] Online Services: [email or web address] For after hours care, call the CareLine at [phone] or . We look forward to taking care of your eye care needs in the years to come. documented in this encounter Progress Notes Jovani Terry, OD - 10/23/2013 11:04 AM CDT ROUTINE EYE EXAM Chief Complaint Patient presents with ??? EYE EXAM,YEARLY DAVIS 10/2008 , Last eye exam 2 years ago - when the light is dim or dark - notices a flash of light off to the right of his vision on the right side - there were some floaters at one time but they have seemed to have cleared up some- onset about a week or so ago , has noticed that on the television with the white lettering that there seems to be two sets of letters one on top of another - did not try closing one eye or the other - if tilting the head slightly then it would seem to go away Patient's Preferred Name: Sherif Assessment: Routine eye exam Hyperopia / Astigmatism and Presbyopia Flashes of light for last 1-2 weeks, floaters were years ago Plan: New glasses prescription given Patient education - let's see what the MR update does for vision first Return to clinic: One year for routine eye exam or if changes Jovani Terry, OD 10/23/2013 documented in this encounter Plan of Treatment Upcoming Encounters Date Type Specialty Care Team Description 07/12/2022 Appointment Optometry Linda Dorsey , OD [address] [place] [phone] (Wo rk) documented as of this encounter Visit Diagnoses Diagnosis Examination of eyes and vision - Primary Presbyopia documented in this encounter Care Teams Ground Crewman Mission Support Relationship Specialty Start Date End Date Merissa Nelson MD PCP - General 10/23/08 [address] [place] [address] documented as of this encounter
--- OUTSIDE RECORDS SUMMARY | 2022-06-14 08:40 | XMS_ITS | Encounter Summary ---
:1950 Author Organization [facility] Address [address] [address] Care Team Providers Name Role Phone Merissa Nelson MD Primary Care Provider Encounter Details Date Type Department Care Team Description 05/30/2009 Imaging [facility] Radiology Cough [address] [place], [place] [address] Social History Tobacco Use [...] Optometry Linda Dorsey , OD [address] [place], [place] [phone] (Wo rk) documented as of this encounter Procedures Procedure Name Priority Date/Time Associated Diagnosis Comme nts XR CHEST 2 VIEWS Routine 05/30/2009 7:12 PM Cough Resul ts for this CDT procedure are i n the results section. documented in this encounter Results XR CHEST 2 VIEW ROUTINE (05/30/2009 7:12 PM CDT) Anatomical Region Laterality Modality Chest, Lung Computed Radiography Specimen (Source) Anatomical Collection Method Collection Time Re ceived Time Location / / Volume Laterality 05/30/2009 7:12 PM CDT Narrative 05/30/2009 7:41 PM CDT ? EXAMINATION: PA and lateral chest x-ray. May 30, 2009 07:12:00 PM INDICATION: Cough. FINDINGS: Negative chest. Procedure Note Ramiro Cronin T - 05/30/2009 EXAMINATION: PA and lateral chest x-ray. May 30, 2009 07:12:00 PM INDICATION: Cough. FINDINGS: Negative chest. Glendy Soriano MD RAD GD documented in this encounter Visit Diagnoses Diagnosis Cough documented in this encounter Care Teams Scheduler Relationship Specialty Start Date End Date Merissa Nelson MD PCP - General 10/23/[address] [place] [address] documented as of this encounter
--- OUTSIDE RECORDS SUMMARY | 2022-06-14 08:40 | XMS_ITS | Encounter Summary ---
:1950 Author Organization [facility] Address [address] [place] [address] Care Team Providers Name Role Phone Merissa Nelson MD Primary Care Provider Reason for Visit Reason Comments COUGH Encounter Details Date Type Department Care Team Description 06/12/2009 Office Visit Urgent Care [facility] tis (Primary Dx); [place] Acute Bronchitis [address] [address] Social History Tobacco Use Types Packs/Day [...] Comments Blood Pressure 142/80 06/12/2009 6:32 PM MEAT SALES AND STORAGE MANAGER Pulse 66 06/12/2009 6:32 PM MEAT SALES AND STORAGE MANAGER Temperature 36.2 ??C (97.1 ??F) 06/12/2009 6:32 PM MEAT SALES AND STORAGE MANAGER Respiratory Rate 16 06/12/2009 6:32 PM MEAT SALES AND STORAGE MANAGER Oxygen Saturation 96% 06/12/2009 6:32 PM MEAT SALES AND STORAGE MANAGER Inhaled Oxygen Concentration - - Weight 124.1 kg (273 lb 8 oz) 06/12/2009 6:32 PM MEAT SALES AND STORAGE MANAGER Height - - Body Mass Index 35.59 04/16/2005 8:46 AM CDT documented in this encounter Patient Instructions Patient InstructionsSonal Israel PA-C - 06/12/2009 7:22 PM CST Bronchitis 1. saline nasal spray 4 sprays each nostril five times a day. 2. Mucinex 12 hour twice a day 3. warm water gargles 5 times a day 4. Plenty of fluids You have been diagnosed with bronchitis. This means that the erickson of the air passages in the lungs become inflamed which can cause dry hacking cough, a productive cough, increased mucous, sputum or phlegm production, soreness or a burning sensation in the chest, chest congestion, a feeling of chest co nstriction, sore throat, wheezing, breathlessness, slight fever and chills and fatigue. These symptoms can follow a cold, be caused by exposure to cigarette smoke, exposure to fumes such as household field sales consultant, exposure to pollutants like smog, stomach acid leaking into the throat and lungs (GERD), viral infections or bacterial infections. Most cases are caused by viral infections, so many times antibiotics are not helpful. Your provider may have prescribed an antibiotic if you have asthma, chronic lung disease, are a smoker, or they suspect you have a bacterial infection. If you have asthma your provider may have recommended an inhaler or other medication such as prednisone to reduce the inflammation in your lungs. Cough syrup may have also been prescribed to help you sleep. Over the counter medication such as acetaminophen (Tylenol??) or ibuprofen (Advil??, Motrin??) or cough syrup are ok to take if they make you feel better. Please take any medication as directed. Do not stop any prescribed antibiotic until it is gone. Many symptoms will clear in a few days but the cough may last a few weeks. If you have asthma or area smoker it may take longer for symptoms to clear. In order to keep yourself more comfortable you should ?? Get plenty of rest Drink lots of fluids Humidify the air at home with a room humidifier Avoid smoke if you do not smoke. Quit if you do. Take acetaminophen (Tylenol??) or ibuprofen (Advil??, Motrin??) for fever and pain Use an over the counter cough medicine appropriate for your symptoms Avoid other airborne irritants Get a flu shot yearly In order NOT to give this to others ?? Wash your hands often or use alcohol containing hand sanitizers Use tissues and throw them away Cover your mouth and nose when you cough or sneeze Wear a mask when appropriate Don???t share drinking glasses or utensils Avoid people who are sick Follow up with your provider if your symptoms are not improving or are worsening after 1 week. Call or seek medical attention IMMEDIATELY if: ?? You or your child become very short of breath You or your child cough up blood or there is blood in the sputum Call the clinic or nurse line if: ?? You or your child have a fever over 101 F for more than 3 days Your cough is preventing you from sleeping ?? Your cough persists for more than 3 weeks despite treatment SALES AND STORAGE MANAGER documented in this encounter Progress Notes Sonal Israel PA-C - 06/12/2009 6:53 PM CST SUBJECTIVE Tyler Muro is a 59 yr male here with no one else, who presents with symptoms including coryza and non productive cough. Symptoms started 3 weeks and are improved after starting antibiotics last week.stoppped getting better last 3-4 days since that time. Current home treatments so far include has not taken albuterol today at all. Has taken 2-3 times a day since rx. Denies fever, chills, night sweats, wheezing, Medications: Current outpatient prescriptions Medication Sig ??? albuterol sulfate hfa (PROAIR HFA) 108 (90 BASE) MCG/ACT inhaler Inhale 2-4 puffs by mouth every4-6 hrs as needed for breathing difficulties Do not use more than 12 puffs in 24 hrs ??? ASPIRIN 325 MG OR TABS Take one tablet by mouth every day. ??? doxycycline (AKA VIBRA-TABS) 100 MG tablet Take one tablet by mouth two times each day (morning and evening) for 10 days. Allergies: Review of patient's allergies indicates no known allergies. Tobacco: History Tobacco Use ??? Quit -- 0.3 packs/day for 23 years ??? Quit date: 08/08/1988 OBJECTIVE Vitals: BP 142/80 Pulse 66 Temp(Src) 97.1 ??F (36.2 ??C) (Oral) Resp 16 Wt 273 lb 8 oz (124.059 kg) SpO2 96% General Appearance: well developed, well nourished and in no acute distress Ears: R TM - WNL: pearly, oh with good light reflex, L TM - WNL: pearly, oh with good light reflex Nose and Sinuses: clear rhinorrhea and mucosal erythema Throat: mild erythema and pnd Neck: supple and no adenopathy Lungs: expiratory wheezes and tight bronchial cough Abdomen: not examined Skin: clear Albuterol nebulizer- improved lung sounds, no wheezing, cough productive Assessment Encounter Diagnoses Code Name Primary? Qualifier ??? 490G Bronchitis Yes Plan: DOXYCYCLINE HYCLATE 100 MG OR TABS, NEBULIZER THERAPY (TREATMENT), ALBUTEROL SULFATE, INHAL SOLU, PER 1 MG, STERILE WATER/SALINE, UP TO 10 ML ??? 466.0 Acute Bronchitis Plan See patient education and prescribed medications SALES AND STORAGE MANAGER documented in this encounter Plan of Treatment Upcoming Encounters Date Type Specialty Care Team Description 07/12/2022 Appointment Optometry Linda Dorsey , OD [address] [place], [place] [phone] (Wo rk) documented as of this encounter Visit Diagnoses Diagnosis Bronchitis - Primary Bronchitis, not specified as acute or ch ronic Acute bronchitis documented in this encounter Care Teams Leather Piece Inspector Relationship Specialty Start Date End Date Merissa Nelson MD PCP - General 10/23/08 [address] [place] [address] documented as of this encounter
--- OUTSIDE RECORDS SUMMARY | 2022-06-14 08:40 | XMS_ITS | Encounter Summary ---
:1950 Author Organization [facility] Address [address], [place] [address] Care Team Providers Name Role Phone Merissa Nelson MD Primary Care Provider Encounter Details Date Type Department Care Team Description 10/10/2013 Orders Only [facility] [address] [place], [place] [address] Social History Tobacco Use [...] Linda Dorsey , OD [address] [place], [place] [phone] (Wo rk) documented as of this encounter Visit Diagnoses Not on filedocumented in this encounter Care Teams Automation Specialist Relationship Specialty Start Date End Date Merissa Nelson MD PCP - General 10/23/08 [address] [place] [address] documented as of this encounter
--- OUTSIDE RECORDS SUMMARY | 2022-06-14 08:40 | XMS_ITS | Encounter Summary ---
:1950 Author Organization [facility] Address [address] [place] [address] Care Team Providers Name Role Phone Merissa Nelson MD Primary Care Provider Reason for Visit Reason Onset Date Comments COUGH 06/05/2009 Encounter Details Date Type Department Care Team Description 06/05/[address] [facility] ([place], [place]) Mj Nelson MD COUGH Practice [address] [place] [address] [place], [place] [address] [place] [address] [phone] Social History Tobacco Use Types Packs/Day Years Used Date Smoking Tobacco: Former Cigarettes 0.3 23 Quit : 08/08/1988 Alcohol Use Standard Drinks/Week Comments Yes 10 (1 standard drink = 0.6 oz pure alcoh ol) Sex Assigned at Date Recorded Not on file documented as of this encounter Nursing Notes Camille Simpson - 06/05/2009 5:20 PM CDT Patient is calling regarding having a cough for the past week. He was diagnosed with bronchitis. He was started on a zpak on tuesday. Patient is concerned because he is still coughing. He is not coughing anything up. TRIAGE REFERENCE: COUGH - ADULT CNG (c) 2007 STAT SYMPTOMS None per guideline ASSESSMENT Duration is: 6 days Cough: Dry Progression: Improved. Respirations: normal. Fever: No. Chest pain: No. Smoking status: No. Other symptoms/present history: night sweats. PMH Often ill Patient Active Problem List Diagnoses Code ??? weight problem 278.00 ??? tinnitus, with slight hearing loss 388.30 ??? Elevated Prostate Specific Antigen (PSA) 790.93 CURRENT MEDICATIONS Yes: Current outpatient prescriptions Medication Sig ??? albuterol sulfate hfa (PROAIR HFA) 108 (90 BASE) MCG/ACT inhaler Inhale 2-4 puffs by mouth every4-6 hrs as needed for breathing difficulties Do not use more than 12 puffs in 24 hrs ??? ASPIRIN 325 MG OR TABS Take one tablet by mouth every day. ??? azithromycin (ZITHROMAX Z-CELINA) 250 MG tablet Take two tablets by mouth on the first day, and take one tablet each day on days 2-5. MEDICATION ALLERGIES No HOME TREATMENT Discussed per guideline Push fluids, this is the only proven effective expectorant Increase humidity in home Mild to moderate fever helps fight infection and does not need treatment Rest Avoid cigarette smoke and other irritants Throat lozenges with menthol may reduce cough Decrease heat in room Honey - lemon: mix 1 part lemon, 2 parts honey 1 Tbls prn cough Medications: Use caution with OTC medications in the frail and elderly patient OTC Medications: Acetominophen 650 mg every 4 hours if uncomfortable COUGH EXPECTORANTS AND SUPPRESSANTS Many ingredients in OTC medicines are not effective for a cough due to a common cold. This includes expectorants like guaifenesin, cough suppressants like dextromethorphan, and zinc. Advise antihistamine/decongestant combinations (brompheniramine, diphenhydramine or chlorpheniramine, combined with pseudoephedrine), or naproxen if not contraindicated due to other medical issues the patient may have. This advice applies only to a cough due to a common cold, not due to chronic conditions such as asthma or bronchitis Dextromethorphan 30 mg at HS only if cough prevents sleep. This med may not be effective if cough is due to a common cold. Robitussin DM may not be effective if cough is due to a common cold ANTIHISTAMINES - if cough due to post nasal dripping, allergies Claritin is safe for the frail/elderly patient - avoid diphenhydramine (Bendaryl), chlorpheniramine (Chlor-Trimeton), Sudafed and most OTC cough, cold and sleep preparations. Benadryl (diphenhydramine) very effective but causes drowiness in most pts Chlortrimeton or Teldrin (chloropheneramine) causes less drowsiness than Benadryl Dimetane (brompheniramine maleate) DECONGESTANTS Pseudoephedrine for moist cough & nasal congestion Sudafed should be avoided in the frail/elderly patient - advise Claritin AVOID drugs with camphor: not proven effective and ingestion of a small amount is harmful, e.g. Vicks Vapor Rub Call back if note green, yellow, or rust colored sputum with fever, chest pain with deep breath, wheezing, shortness of breath, fever higher than 100.4 for more than 72 hours, cough longer than 3 weeks, coughing up blood PLAN Home treat & monitor symptoms, call back if they increase or if concerns Follow up clinic and/or Primary Care Provider -call back if symptoms change or worsen -call back if complications occur -call back if no relief from medication (tylenol/ibuprofen) Patient verbalized understanding and is comfortable with this plan. Camille Simpson RN Yoan Mcconnell - 06/05/2009 5:12 PM CDT Patient would like to speak to his provider's nurse. Name of patient's provider: Merissa Nelson Summarize the patient's question or concern: PATIENT WENT TO URGENT CARE ON WEDNESDAY 05/30, GOT ANTIBIOTIC AND TOOK IT UNTIL SUNDAY 06/03; COUGH IS STILL LINGERING. WOULD LIKE TO SPEAK WITH NURSE AND SCHEDULE WITH DOCTOR Yoan Mcconnell documented in this encounter Plan of Treatment Upcoming Encounters Date Type Specialty Care Team Description 07/12/2022 Appointment Optometry Linda Dorsey , OD [address] [place] [phone] (Wo rk) documented as of this encounter Visit Diagnoses Not on filedocumented in this encounter Care Teams Wax Blender Relationship Specialty Start Date End Date Merissa Nelson MD PCP - General 10/23/[address] [place] [address] documented as of this encounter
--- OUTSIDE RECORDS SUMMARY | 2022-06-14 08:40 | XMS_ITS | Encounter Summary ---
:1950 Author Organization [facility] Address [address], [place] [address] Care Team Providers Name Role Phone Dameon Li MD Primary Care Provider Encounter Details Date Type Department Care Team Description 01/06/2007 Office Visit External to [facility], Fabiano roberto [address] [place], [place] Social History Tobacco Use Types Packs/Day Years Used Date Smoking Tobacco: Former Cigarettes 0.3 23 Quit : 08/08/1988 Alcohol Use Standard Drinks/Week Comments Yes 10 (1 standard drink = 0.6 oz pure alcoh ol) Sex Assigned at Date Recorded Not on file documented as of this encounter Progress Notes [facility], Provider - 01/06/2007 12:00 AM CDT documented in this encounter Plan of Treatment Upcoming Encounters Date Type Specialty Care Team Description 07/12/2022 Appointment Optometry Linda Dorsey , OD [address] [place], [place] [phone] (Wo rk) documented as of this encounter Visit Diagnoses Not on filedocumented in this encounter Care Teams Assistant At Surgery Relationship Specialty Start Date End Date Dameon Li MD PCP - General 11/24/06 02/01/08 [facility] Skye Nicholson [address] [address] documented as of this encounter
--- OUTSIDE RECORDS SUMMARY | 2022-06-14 08:40 | XMS_ITS | Encounter Summary ---
:1950 Author Organization [facility] Address [address] [place] [address] Care Team Providers Name Role Phone Merissa Nelson MD Primary Care Provider Encounter Details Date Type Department Care Team Description 06/23/2017 Office Visit [facility] Subjective vision disturbanc e (Primary Dx); [address] Blepharitis of upper and low er eyelids of both eyes, unspecified type; [place], [place] [address] Cortical age-related catarac t of both eyes [phone] Social History Tobacco Use Types Packs/Day Years Used Date Smoking Tobacco: Former Cigarettes 0.3 23 Quit : 08/08/1988 Smokeless Tobacco: Never Alcohol Use Standard Drinks/Week Comments Yes 10 (1 standard drink = 0.6 oz pure alcoh ol) Sex Assigned at Date Recorded Not on file documented as of this encounter Progress Notes Eva Keene, COT - 06/23/2017 2:05 PM CST Visual Field 24-2 and SD OCT of the macula for macular disease completed per Dr. Funk for DX subjective visual disturbance performed by Eva Keene Trials used: +2.50 +1.75 x 020 +3.00 +1.50 x 165 Contact patient with results via phone: [phone]. It is ok to leave a message with results. - noupcoming appointment. Eva Keene MBLER FILTERS Monika Funk OD - 06/23/2017 2:00 PM CST VF review: Reliability good. OD: No significant defect, visual field fairly clear. GHT: within normal limits Reliability low. OS: A couple of scattered misses. GHT: within normal limits Macular OCT: Scan quality good. OD: No defect in macular parameters, within normal limits Scan quality good. OS: No defect in macular parameters, within normal limits A: Encounter Diagnoses Name Primary? Subjective vision disturbance ??? Blepharitis of upper and lower eyelids of both eyes, unspecified type Yes ??? Cortical age-related cataract of both eyes P: Reviewed tests with patient in office. No pathology present on VF and macular OCT testing to explainhis feeling of dim vision left. Call or return to clinic prn if these symptoms worsen, fail to improve as anticipated, or if new symptoms develop. Likely vision changes related to blepharitis and/or cataract changes. MBLER FILTERS documented in this encounter Plan of Treatment Upcoming Encounters Date Type Specialty Care Team Description 07/12/2022 Appointment Optometry Linda Dorsey , OD [address] [place], [place] [phone] (Wo rk) documented as of this encounter Visit Diagnoses Diagnosis Subjective vision disturbance - Primary Subjective visual disturbance, unspecifi ed Blepharitis of upper and lower eyelids o f both eyes, unspecified type Cortical age-related cataract of both ey es Cortical senile cataract documented in this encounter Care Teams Development Consultant Relationship Specialty Start Date End Date Merissa Nelson MD PCP - General 10/23/08 [address] [place] [address] documented as of this encounter
--- OUTSIDE RECORDS SUMMARY | 2022-06-14 08:40 | XMS_ITS | Encounter Summary ---
:1950 Author Organization Replaced by [facility] Address [address], [place] [address] Care Team Providers Name Role Phone Dameon Li MD Primary Care Provider Encounter Details Date Type Department Care Team Description 01/13/2007 Office Visit External to [facility], Fabiano roberto [address] [place], [place] Social History Tobacco Use Types Packs/Day Years Used Date Smoking Tobacco: Former Cigarettes 0.3 23 Quit : 08/08/1988 Alcohol Use Standard Drinks/Week Comments Yes 10 (1 standard drink = 0.6 oz pure alcoh ol) Sex Assigned at Date Recorded Not on file documented as of this encounter Progress Notes [facility], Provider - 01/13/2007 12:00 AM CDT documented in this encounter Plan of Treatment Upcoming Encounters Date Type Specialty Care Team Description 07/12/2022 Appointment Optometry Linda Dorsey , OD [address] [place], [place] [phone] (Wo rk) documented as of this encounter Visit Diagnoses Not on filedocumented in this encounter Care Teams Viscosity Inspector Relationship Specialty Start Date End Date Dameon Li MD PCP - General 11/24/06 02/01/08 [facility] Skye Nicholson [address] [address] documented as of this encounter
--- OUTSIDE RECORDS SUMMARY | 2022-06-14 08:40 | XMS_ITS | Encounter Summary ---
:1950 Author Organization [facility] Address [address] [place] [address] Care Team Providers Name Role Phone Merissa Nelson MD Primary Care Provider Reason for Visit Reason Comments URINATION, URINATE, DIFFICULTY IN, NOS Encounter Details Date Type Department Care Team Description 01/22/2016 Nurse Triage Careline Unassigned, URINATION, URINATE, [address] Provider DIFFICULTY IN, NOS [place], [place] [address] [place] [address] [place] [address] Social History Tobacco Use Types Packs/Day Years Used Date Smoking Tobacco: Former Cigarettes 0.3 23 Quit : 08/08/1988 Alcohol Use Standard Drinks/Week Comments Yes 10 (1 standard drink = 0.6 oz pure alcoh ol) Sex Assigned at Date Recorded Not on file documented as of this encounter Nursing Notes Radha Hartman RN - 01/22/2016 7:45 AM CDT Protocol: URINARY [id number] Affirmative: [1] Unable to urinate (or only a few drops) > 4 hours AND [2] bladder feels very full (e.g., palpable bladder or strong urge to urinate) Disposition of Go To ED Now suggested. Radha Hartman RN - 01/22/2016 7:39 AM CDT 7:39 AM Verified and full name. Yes Situation/Symptom: Patient has a history of enlarged prostate. Patient currently takes Tamsulosin every morning. Patient noticed yesterday he forgot to take medication. This morning patient took normaldose and not much changed. Then took an additional tablet and the has been able to void but a very little amount. Patient is feeling like bladder is full and tender to push on the bladder area. No blood in urine. No fever but patient is sweating a lot. Patient advised to go to the ED for evaluation. Patient has never been to the ED so will check with membership services and will also call urologistclinic and advised of the situation. Patient had no other questions. Radha Garcias RN Marianela Cordero - 01/22/2016 7:37 AM CDT Which care system or clinic is the patient normally seen at? OTHER. Situation: Enlarged Prostate - Missed med yesterday - difficulty urinating - Very uncomfortable Plan:Call transferred directly to [facility]Line nurse. documented in this encounter Plan of Treatment Upcoming Encounters Date Type Specialty Care Team Description 07/12/2022 Appointment Optometry Linda Dorsey , OD [address] [place] [phone] (Wo rk) documented as of this encounter Visit Diagnoses Not on filedocumented in this encounter Care Teams Tool Chaser Relationship Specialty Start Date End Date Merissa Nelson MD PCP - General 10/23/08 [address] [place] [address] documented as of this encounter
--- OUTSIDE RECORDS SUMMARY | 2022-06-14 08:40 | XMS_ITS | Encounter Summary ---
:1950 Author Organization [facility] Address [address], [place] [address] Care Team Providers Name Role Phone Dameon Li MD Primary Care Provider Encounter Details Date Type Department Care Team Description 11/25/2006 Orders Only [facility] [address] [place], [place] [address] Social History Tobacco Use [...] Linda Dorsey , OD [address] [place], [place] [phone] (Wo rk) documented as of this encounter Visit Diagnoses Not on filedocumented in this encounter Care Teams Logistics Team Lead Relationship Specialty Start Date End Date Dameon Li MD PCP - General 11/24/06 02/01/08 [facility] [place] [address] documented as of this encounter
--- OUTSIDE RECORDS SUMMARY | 2022-06-14 08:40 | XMS_ITS | Encounter Summary ---
:1950 Author Organization [facility] Address [address], [place] [address] Care Team Providers Name Role Phone Unassigned, Provider Primary Care Provider Unavailable Encounter Details Date Type Department Care Team Description 04/17/2008 Orders Only [facility] Elevated Prostate Specific [address] [place] Antigen (PSA) [place], [place] [address] Social History Tobacco Use [...] Optometry Linda Dorsey , OD [address] [place], [place] [phone] (Wo rk) documented as of this encounter Procedures Procedure Name Priority Date/Time Associated Diagnosis Comme nts PROSTATIC SPECIFIC Routine 04/17/2008 6:17 PM Elevated Prostat e Results for this ANTIGEN(SCREEN) CDT Specific Antigen procedur e are in (PSA) the results section. documented in this encounter Results (ABNORMAL) PSA (SCREEN) (V76.44) (04/17/2008 6:17 PM CDT) [facility] Method Time Signature Prostatic Spec 5.50 (H) 0 - 4.5 [facility] Ag ng/ml Specimen Anatomical Collection Method Collection Time Receive d Time (Source) Location / / Volume Laterality 04/17/2008 6:17 PM 8 6:45 CDT PM CDT Erin Nelson PA-C LAB_1 Performing Organization Address City/State/ZIP Code Phon e Number [facility] [phone] [address] documented in this encounter Visit Diagnoses Diagnosis Elevated prostate specific antigen (PSA) documented in this encounter Care Teams Recorder Of Deeds Relationship Specialty Start Date End Date Unassigned, Provider PCP - General 02/02/08 10/22/08 [address] [place] [address] documented as of this encounter
--- OUTSIDE RECORDS SUMMARY | 2022-06-14 08:40 | XMS_ITS | Encounter Summary ---
:1950 Author Organization [facility] Address [address], [place] [address] Care Team Providers Name Role Phone Merissa Nelson MD Primary Care Provider Reason for Visit Reason Onset Date Comments QUESTIONS, GENERAL 10/19/2006 Encounter Details Date Type Department Care Team Description 10/19/[address] [facility] ([place], [place]) Merissa Nelson, Jose Luis HILL, dye house wheel operator [address] [facility] [address] [place] [address] [address] [place] [address] [phone] (Wo rk) Social History Tobacco Use Types Packs/Day Years Used Date Smoking Tobacco: Former Cigarettes 0.3 23 Quit : 08/08/1988 Alcohol Use Standard Drinks/Week Comments Yes 10 (1 standard drink = 0.6 oz pure alcoh ol) Sex Assigned at Date Recorded Not on file documented as of this encounter Nursing Notes Heather Lloyd - 10/19/2006 9:56 AM CDT Pt is returning Dr Li's call.pls call [phone] documented in this encounter Plan of Treatment Upcoming Encounters Date Type Specialty Care Team Description 07/12/2022 Appointment Optometry Linda Dorsey , OD [address] [place], [place] [phone] (Wo rk) documented as of this encounter Visit Diagnoses Not on filedocumented in this encounter Care Teams Supply Aide Relationship Specialty Start Date End Date Merissa Nelson MD PCP - General 10/04/06 11/23/[address] [place] [address] documented as of this encounter
--- OUTSIDE RECORDS SUMMARY | 2022-06-14 08:40 | XMS_ITS | Encounter Summary ---
:1950 Author Organization [facility] Address [address] [place] [address] Care Team Providers Name Role Phone Dameon Li MD Primary Care Provider Reason for Visit Reason Comments Eyeglasses, Problem DAVIS 10-16-07,Consoer.patient states seems like eyes are being pulled.Rt eye.Hard to see sm all print at midrange has to turn head down and to the left to see. Encounter Details Date Type Department Care Team Description 01/04/2008 Office Visit [facility] ConsoerJeremy, Unspecified Subjective [address] OD Visual Disturbance [place], [place] [address] (Primary Dx) [phone] Social History Tobacco Use Types Packs/Day Years Used Date Smoking Tobacco: Former Cigarettes 0.3 23 Quit : 08/08/1988 Alcohol Use Standard Drinks/Week Comments Yes 10 (1 standard drink = 0.6 oz pure alcoh ol) Sex Assigned at Date Recorded Not on file documented as of this encounter Progress Notes Jeremy Fish - 01/04/2008 5:48 PM CDT Not enough difference in Rx to warrant change from old glasses. Issue a refund on new glasses. RTC 1 yr documented in this encounter Plan of Treatment Upcoming Encounters Date Type Specialty Care Team Description 07/12/2022 Appointment Optometry Linda Dorsey , OD [address] [place], [place] [phone] (Wo rk) documented as of this encounter Visit Diagnoses Diagnosis Subjective visual disturbance, unspecifi ed - Primary documented in this encounter Care Teams Brazer Crawler Torch Relationship Specialty Start Date End Date Dameon Li MD PCP - General 11/24/06 02/01/[address] [address] documented as of this encounter
--- OUTSIDE RECORDS SUMMARY | 2022-06-14 08:40 | XMS_ITS | Encounter Summary ---
:1950 Author Organization [facility] Address [address] [place] [address] Care Team Providers Name Role Phone Dameon Li MD Primary Care Provider Encounter Details Date Type Department Care Team Description 11/01/2007 Correspondence External to [facility] [address] [place], [place] Social History Tobacco Use Types Packs/Day Years Used Date Smoking Tobacco: Former Cigarettes 0.3 23 Quit : 08/08/1988 Alcohol Use Standard Drinks/Week Comments Yes 10 (1 standard drink = 0.6 oz pure alcoh ol) Sex Assigned at Date Recorded Not on file documented as of this encounter Progress Notes [facility], Provider - 11/01/2007 12:00 AM CDT documented in this encounter Plan of Treatment Upcoming Encounters Date Type Specialty Care Team Description 07/12/2022 Appointment Optometry Linda Dorsey , OD [address] [place], [place] [phone] (Wo rk) documented as of this encounter Visit Diagnoses Not on filedocumented in this encounter Care Teams Youth Support Worker Relationship Specialty Start Date End Date Dameon Li MD PCP - General 11/24/06 02/01/08 [facility] [address] [phone] documented as of this encounter
--- OUTSIDE RECORDS SUMMARY | 2022-06-14 08:40 | XMS_ITS | Encounter Summary ---
:1950 Author Organization [facility] Address [address] [place] [address] Care Team Providers Name Role Phone Unassigned, Provider Primary Care Provider Unavailable Encounter Details Date Type Department Care Team Description 09/16/2008 Notes/Orders [facility] Merissa Nelson E levated Prostate Practice MD Specific Antigen [address] [facility] [address] (PSA) (Primary Dx) [place] [phone] Social History Tobacco Use Types Packs/Day Years [...] Appointment Optometry Linda Dorsey , OD [address] [place], [place] [phone] (Wo rk) documented as of this encounter Visit Diagnoses Diagnosis Elevated prostate specific antigen (PSA) - Primary documented in this encounter Care Teams Pattern Storage Clerk Relationship Specialty Start Date End Date Unassigned, Provider PCP - General 02/02/08 10/22/08 [address] [place] [address] documented as of this encounter
--- OUTSIDE RECORDS SUMMARY | 2022-06-14 08:40 | XMS_ITS | Encounter Summary ---
:1950 Author Organization [facility] Address [address] [place] [address] Care Team Providers Name Role Phone Unassigned, Provider Primary Care Provider Unavailable Encounter Details Date Type Department Care Team Description 10/07/2008 Orders Only [facility] [address] [place], [place] [address] Social History Tobacco Use [...] Optometry Linda Dorsey , OD [address] [place], [place] [phone] (Wo rk) documented as of this encounter Procedures Procedure Name Priority Date/Time Associated Diagnosis Comme nts DRAW TUBE & HOLD Routine 05/13/2009 4:30 AM Resul ts for this CDT procedure are i n the results section. PROSTATIC SPECIFIC Routine 10/07/2008 6:39 PM Res ults for this ANTIGEN (DIAGNOSTIC DISPATCHER SERVICE CHIEF procedur e are in F/U) the results section. documented in this encounter Results DRAW TUBE & HOLD (05/13/2009 4:30 AM CDT) [facility] gist Method Time Signature Draw and Hold Specimen [facility] Available Based on Sample Stability Specimen Anatomical Collection Method Collection Time Receive d Time (Source) Location / / Volume Laterality 05/13/2009 4:30 AM 9 4:44 CDT PM CDT Tyler Ledesma MD LAB_1 Performing Organization Address [facility]/ZIP Code Phon e Number [facility] [phone] [phone] (ABNORMAL) PROSTATIC SPECIFIC ANTIGEN (F/U) (10/07/2008 6:39 PM DISPATCHER SERVICE CHIEF) [facility] Method Time Signature Prostatic Spec 5.94 (H) 0 - 4.5 [facility] Ag ng/ml Specimen Anatomical Collection Method Collection Time Receive d Time (Source) Location / / Volume Laterality 10/07/2008 6:39 PM 9 6:40 DISPATCHER SERVICE CHIEF PM DISPATCHER SERVICE CHIEF Tyler Ledesma MD LAB_1 Performing Organization Address [facility] Code Phon e Number [facility] Meilishuo [phone] [phone] documented in this encounter Visit Diagnoses Not on filedocumented in this encounter Care Teams Director Of Clinical Services Relationship Specialty Start Date End Date Unassigned, Provider PCP - General 02/02/08 10/22/08 [address] [place] [address] documented as of this encounter
--- OUTSIDE RECORDS SUMMARY | 2022-06-14 08:40 | XMS_ITS | Encounter Summary ---
:1950 [facility] Address [address] [place] [address] Care Team Providers Name Role Phone Merissa Nelson MD Primary Care Provider Reason for Visit Reason Comments Eyeglasses, Problem Pt states he has his new gl asses from 08/2016. Eyes seem to be pulling all the time when th e glasses are on. left lens is worse-not a crisp spot on hi s lenses. Encounter Details Date Type Department Care Team Description 05/31/2017 Office Visit [facility] Monika Funk left upper eyelid (Primary Dx); [address] J, OD Hyperopia with astigmatism and presbyopi a, bilateral; [place], [place] [address] Blepharitis of upper and lower eyelids o f both eyes, unspecified type; [phone] [employer] Subjective visi on [place], [place] [phone] Social History Tobacco Use Types Packs/Day Years Used Date Smoking Tobacco: Former Cigarettes 0.3 23 Quit : 08/08/1988 Smokeless Tobacco: Never Alcohol Use Standard Drinks/Week Comments Yes 10 (1 standard drink = 0.6 oz pure alcoh ol) Sex Assigned at Date Recorded Not on file documented as of this encounter Patient Instructions Patient InstructionsMonika Funk, OD - 05/31/2017 5:20 PM CDT Images from the original note were not included. Lid scrubs every day for 2 weeks. Warm compresses daily. Styes and Chalazia: Care Instructions Your Care Instructions Styes and chalazia (say ujb-DWD-vwy-) are both conditions that can cause swelling of the eyelid. A stye is an infection in the root of an eyelash. The infection causes a tender red lump on the edgeof the eyelid. The infection can spread until the whole eyelid becomes red and inflamed. Styes usually break open, and a tiny amount of pus drains. They usually clear up on their own in about a week, but they sometimes need treatment with antibiotics. A chalazion is a lump or cyst in the eyelid (chalazion is singular; chalazia is plural). It is caused by swelling and inflammation of deep oil glands inside the eyelid. Chalazia are usually not infected. They can take a few months to heal. If a chalazion becomes more swollen and painful or does not go away, you may need to have it drainedby your doctor. Follow-up care is a styles part of your treatment and safety. Be sure to make and go to all appointments, and call your doctor if you are having problems. It's also a good idea to know your test results and keep a list of the medicines you take. How can you care for yourself at home? ?? Do not rub your eyes. Do not squeeze or try to open a stye or chalazion. ?? To help a stye or chalazion heal faster: ?? Put a warm, moist compress on your eye for 5 to 10 minutes, 3 to 6 times a day. Heat often bringsa stye to a point where it drains on its own. Keep in mind that warm compresses will often increase swelling a little at first. ?? Do not use hot water or heat a wet cloth in a microwave oven. The compress may get too hot and can burn the eyelid. ?? Always wash your hands before and after you use a compress or touch your eyes. ?? If the doctor gave you antibiotic drops or ointment, use the medicine exactly as directed. Use the medicine for as long as instructed, even if your eye starts to feel better. ?? To put in eyedrops or ointment: ?? Tilt your head back, and pull your lower eyelid down with one finger. ?? Drop or squirt the medicine inside the lower lid. ?? Close your eye for 30 to 60 seconds to let the drops or ointment move around. ?? Do not touch the ointment or dropper tip to your eyelashes or any other surface. ?? Do not wear eye makeup or contact lenses until the stye or chalazion heals. ?? Do not share towels, pillows, or washcloths while you have a stye. When should you call for help? Call your doctor now or seek immediate medical care if: ?? You have pain in your eye. ?? You have a change in vision or loss of vision. ?? Redness and swelling get much worse. Watch closely for changes in your health, and be sure to contact your doctor if: ?? Your stye does not get better in 1 week. ?? Your chalazion does not start to get better after several weeks. Where can you learn more? 1. Go to [employer]rog[employer] or [employer]. 2. Enter C853 in the search box. Current as of: October 08, 2016 Content Version: 11.3 ?? [id number] Xpreso. documented in this encounter Progress Notes Monika Funk, OD - 05/31/2017 5:20 PM CDT Chief Complaint Patient presents with ??? Eyeglasses, Problem Pt states he has his new glasses from 08/2016. Eyes seem to be pulling all the time when the glassesare on. left lens is worse-not a crisp spot on his lenses. History Reviewed Assessment ICD-10-CM 1. Chalazion left upper eyelid H00.14 2. Hyperopia with astigmatism and presbyopia, bilateral H52.03 Refractive State, Determination Of H52.203 H52.4 3. Blepharitis of upper and lower eyelids of both eyes, unspecified type H01.001 H01.005 H01.004 H01.002 Vision seems dim with left lens. 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 No distortion of straight lines noticed, just dim. Plan Spectacle Prescription given. Stronger glasses needed-likely due to cataract growth. Patient understood what was discussed and all questions were answered. See patient instructions. Lid scrubs and warm compresses needed. schedule tech visit and Dr. Cottrell visit same day within next month for dilation and additional testing. (needs macular OCT and 24-2 visual field.) Monika Funk,IDALIA documented in this encounter Plan of Treatment Upcoming Encounters Date Type Specialty Care Team Description 07/12/2022 Appointment Optometry Linda Dorsey , OD [address] [place], [place] [phone] (Wo rk) documented as of this encounter Visit Diagnoses Diagnosis Chalazion left upper eyelid - Primary Hyperopia with astigmatism and presbyopi a, bilateral Blepharitis of upper and lower eyelids o f both eyes, unspecified type Subjective vision disturbance Subjective visual disturbance, unspecifi ed documented in this encounter Care Teams Publicity Director Relationship Specialty Start Date End Date Merissa Nelson MD PCP - General 10/23/08 [address] [place] [address] documented as of this encounter
--- OUTSIDE RECORDS SUMMARY | 2022-06-14 08:40 | XMS_ITS | Encounter Summary ---
:1950 Author Organization [facility] Address [address] [place] [address] Care Team Providers Name Role Phone Dameon Li MD Primary Care Provider Reason for Visit Reason Comments Routine Eye Exam Blurry watching tv both eyes x 3 weeks. Have been very busy. Left eye gets bloodshoot off and on and gets scratchy x 3 months. No itching or crusting. Encounter Details Date Type Department Care Team Description 10/16/2007 Office Visit [facility] Jeremy Fish, Examination of Eyes [address] OD and Vision (Primary [place], [place] [address] Dx) [phone] Social History Tobacco Use Types Packs/Day Years Used Date Smoking Tobacco: Former Cigarettes 0.3 23 Quit : 08/08/1988 Alcohol Use Standard Drinks/Week Comments Yes 10 (1 standard drink = 0.6 oz pure alcoh ol) Sex Assigned at Date Recorded Not on file documented as of this encounter Patient Instructions Patient InstructionsConsoerJeremy - 10/16/2007 3:37 PM CDT Use AT PRn for dry, irritated eyes documented in this encounter Plan of Treatment Upcoming Encounters Date Type Specialty Care Team Description 07/12/2022 Appointment Optometry Linda Dorsey , OD [address] [place], [place] [phone] (Wo rk) documented as of this encounter Visit Diagnoses Diagnosis Examination of eyes and vision - Primary documented in this encounter Care Teams Order Filler Relationship Specialty Start Date End Date Dameon Li MD PCP - General 11/24/06 02/01/08 [address] [phone] documented as of this encounter
--- OUTSIDE RECORDS SUMMARY | 2022-06-14 08:40 | XMS_ITS | Encounter Summary ---
:1950 Author Organization [facility] Address [address] [place] [address] Care Team Providers Name Role Phone Merissa Nelson MD Primary Care Provider Reason for Visit Reason Comments EYE EXAM,YEARLY DAVIS 10/2013 GREGORIO. Pt states he needs to wear his PAL glasses more often now for both DVA and NVA Encounter Details Date Type Department Care Team Description 08/14/2015 Office Visit [facility] Monika Funk Visit for eye and vision exa m (Primary Dx); [address] J, OD Cataract, nuclear sclerotic, both eyes; [place], [place] [address] Astigmatism, regular, bilateral [H52.223 ]; [phone] ULEN Hyperopia, bila teral; [place] [address] Presbyopia Social History Tobacco Use Types Packs/Day Years Used Date Smoking Tobacco: Former Cigarettes 0.3 23 Quit : 08/08/1988 Alcohol Use Standard Drinks/Week Comments Yes 10 (1 standard drink = 0.6 oz pure alcoh ol) Sex Assigned at Date Recorded Not on file documented as of this encounter Patient Instructions Patient InstructionsMonika Funk, OD - 08/14/2015 12:41 PM CST Images from the original note were not included. Thanks for coming to the eye clinic today! The first step in healthy eyes is having regular eye exams. The other things that can help keep your eyes healthy until we see you again are: wear sunglasses to protect your eyes from UV light, don't smoke, and eat a healthy diet including green and orange vegetables like spinach, carrots, broccoli, and squash. Your eyes will be dilated from 4 to 14 hours depending on the strength of the drops used at your appointment. Children usually get strong drops so their eyes stay dilated and blurry longer. Wearing sunglasses today outside will keep your eyes comfortable, but your vision will still be blurry up close for awhile. Use extra caution in getting around today until the drops wear off. Did you know that we all get cataracts as we age? Cataracts develop slowly and when they start to affect vision cataract surgery can be done. Did you know that dry eyes cause watering and burning? It seems like that wouldn???t make sense but it does, and using artificial tears can help a lot of patients keep their eyes feeling more comfortable. Artificial tears are available over the counter and are safe to use up to 4 times per day. Ask usfor a recommendation if you are not sure which brand to try. Did you know that a separate pair of glasses can be prescribed for use at the computer? Ask your eyedoctor if this may be a good choice for you. Do you have an interest in contact lenses? Most patients can wear contacts, let us know if you are interested. Did you know that wearing safety glasses can help prevent sight threatening and painful eye injuries? supervisor dairy sanitation some safety glasses before you start that next project at home, or before you start up the baker pie. Did you know that our optical shops have a large selection of glasses for any budget? Stop in and let our knowledgeable optical team help you on your way out today. You can reach us by phone or through the [facility] secure online [place] site. Let us know how we can help you until we see you again. INE JOINER CEMENTER documented in this encounter Progress Notes Monika Funk, OD - 08/14/2015 12:38 PM CST Chief Complaint Patient presents with ??? EYE EXAM,YEARLY DAVIS 10/2013 GREG[place]IO. Pt states he needs to wear his PAL glasses more often now for both DVA and NVA History Reviewed Assessment ICD-10-CM 1. Visit for eye and vision exam Z01.00 2. Cataract, nuclear sclerotic, both eyes H25.13 3. Astigmatism, regular, bilateral [H52.223] H52.223 REFRACTIVE STATE, DETERMINATION OF ([address]) 4. Hyperopia, bilateral H52.03 REFRACTIVE STATE, DETERMINATION OF ([address]) 5. Presbyopia H52.4 REFRACTIVE STATE, DETERMINATION OF ([address]) Has computer Rx as well. Plan Spectacle Prescription given. Patient understood what was discussed and all questions were answered. See patient instructions. Mild cataract discussed. Return to clinic in 1 year for complete eye exam. Monika Funk,IDALIA INE JOINER CEMENTER documented in this encounter Plan of Treatment Upcoming Encounters Date Type Specialty Care Team Description 07/12/2022 Appointment Optometry Linda Dorsey , OD [address] [place], [place] [phone] (Wo rk) documented as of this encounter Visit Diagnoses Diagnosis Visit for eye and vision exam - Primary Examination of eyes and vision Cataract, nuclear sclerotic, both eyes Senile nuclear sclerosis Astigmatism, regular, bilateral [H52.223 ] Hyperopia, bilateral Presbyopia documented in this encounter Care Teams Advertising Sales Associate Relationship Specialty Start Date End Date Merissa Nelson MD PCP - General 10/23/08 [address] [place] [address] documented as of this encounter
--- OUTSIDE RECORDS SUMMARY | 2022-06-14 08:40 | XMS_ITS | Encounter Summary ---
:1950 Author Organization [facility] Address [address], [place] [address] Care Team Providers Name Role Phone Dameon Li MD Primary Care Provider Reason for Visit Reason Onset Date Comments LAB TESTS, NOS 11/25/2006 Encounter Details Date Type Department Care Team Description 11/25/2006 Telephone [facility] Dameon Li MD LAB TESTS, NOS [facility] [address] [facility] [address] [address] [place] [address] [phone] (Wo rk) Social History Tobacco Use Types Packs/Day Years Used Date Smoking Tobacco: Former Cigarettes 0.3 23 Quit : 08/08/1988 Alcohol Use Standard Drinks/Week Comments Yes 10 (1 standard drink = 0.6 oz pure alcoh ol) Sex Assigned at Date Recorded Not on file documented as of this encounter Nursing Notes Barby Murray - 11/25/2006 9:54 AM CDT This patient presented without laboratory orders-Blood Spec drawn. Please order labs or inform lab if no lab work is needed. Test requested :psa documented in this encounter Plan of Treatment Upcoming Encounters Date Type Specialty Care Team Description 07/12/2022 Appointment Optometry Linda Dorsey , OD [address] [place], [place] [phone] (Wo rk) documented as of this encounter Visit Diagnoses Not on filedocumented in this encounter Care Teams Investment Consultant Relationship Specialty Start Date End Date Dameon Li MD PCP - General 11/24/06 02/01/[address] [address] documented as of this encounter
--- OUTSIDE RECORDS SUMMARY | 2022-06-14 08:40 | XMS_ITS | Encounter Summary ---
:1950 Author Organization [facility] Address [address] [place] [address] Care Team Providers Name Role Phone Merissa Nelson MD Primary Care Provider Reason for Visit Reason Comments COUGH Encounter Details Date Type Department Care Team Description 05/30/2009 Office Visit [facility] Cough (Primary Dx); [address] [facility] Bronchitis [place], [place] [address] Social History Tobacco Use Types Packs/Day Years Used Date Smoking Tobacco: Former Cigarettes 0.3 23 Quit : 08/08/1988 Alcohol Use Standard Drinks/Week Comments Yes 10 (1 standard drink = 0.6 oz pure alcoh ol) Sex Assigned at Date Recorded Not on file documented as of this encounter Last Filed Vital Signs Vital Sign Reading Time Taken Comments Blood Pressure 130/82 05/30/2009 6:39 PM CDT Pulse 78 05/30/2009 6:39 PM CDT Temperature 36.3 ??C (97.3 ??F) 05/30/2009 6:39 PM CDT Respiratory Rate 16 05/30/2009 6:39 PM CDT Oxygen Saturation - - Inhaled Oxygen Concentration - - Weight 124.8 kg (275 lb 2 oz) 05/30/2009 6:39 PM CDT Height - - Body Mass Index 35.81 04/16/2005 8:46 AM CDT documented in this encounter Progress Notes Glendy Soriano - 05/30/2009 7:52 PM CDT This office note has been dictated. Glendy Soriano MD Glendy Soriano M - 05/30/2009 12:00 AM CDT Chief Complaint: Cough. Subjective: Patient is a 59-year-old male who has had a cough for the last 10 days. Produces a lot of congestion. Has had some noisy breathing, occasional wheezing, and he has denied a fever. Denies having a history of asthma. He quit smoking 20 years ago. Objective: Okmaw-fsa-uxgg-old male who is awake, cooperative. His temp is 97.3, blood pressure is 130/82, pulse is 78, respirations 16. Color is good. His room air oximetry is 96%. He is breathing easily. He is normocephalic. His TMs look normal. His throat looks normal. He has no cervical adenopathy. His lung sounds reveal some loud coarse rales in the right base that did not clear with coughing. He may have even had some very minor wheezing. Chest x-ray negative for a pneumonia. Assessment: Bronchitis with some wheezing. Plan: Patient was given prescription for a Z-Al to take as directed and also an albuterol inhaler. If he has no improvement or symptoms get worse, he is to follow up with primary doctor. He left in stable condition. P / A [facility] cc: documented in this encounter Plan of Treatment Upcoming Encounters Date Type Specialty Care Team Description 07/12/2022 Appointment Optometry Linda Dorsey , OD [address] [place], [place] [phone] (Wo rk) documented as of this encounter Results XR CHEST 2 VIEW [...] FINDINGS: Negative chest. Procedure Note Ramiro Cronin - 05/30/2009 EXAMINATION: PA and lateral chest x-ray. May 30, 2009 07:12:00 PM INDICATION: Cough. FINDINGS: Negative chest. Glendy Soriano MD RAD GD documented in this encounter Visit Diagnoses Diagnosis Cough - Primary Bronchitis Bronchitis, not specified as acute or ch ronic Cough documented in this encounter Care Teams Nematologist Relationship Specialty Start Date End Date Merissa Nelson MD PCP - General 10/23/[address] [place] [address] documented as of this encounter
--- OUTSIDE RECORDS SUMMARY | 2022-06-14 08:40 | XMS_ITS | Encounter Summary ---
:1950 Author Organization [facility] Address [address], [place] [address] Care Team Providers Name Role Phone Dameon Li MD Primary Care Provider Reason for Visit Reason Comments EAR,PLUGGED L ear since this am Encounter Details Date Type Department Care Team Description 02/16/[address] [facility] Lexii jemma Correa ([facility] Dx) [address] [place], [place] [address] Social History Tobacco Use Types Packs/Day Years Used Date Smoking Tobacco: Former Cigarettes 0.3 23 Quit : 08/08/1988 Alcohol Use Standard Drinks/Week Comments Yes 10 (1 standard drink = 0.6 oz pure alcoh ol) Sex Assigned at Date Recorded Not on file documented as of this encounter Last Filed Vital Signs Vital Sign Reading Time Taken Comments Blood Pressure 140/82 02/16/2007 6:40 PM CDT Pulse 68 02/16/2007 6:40 PM CDT Temperature 36.2 ??C (97.1 ??F) 02/16/2007 6:40 PM CDT Respiratory Rate 16 02/16/2007 6:40 PM CDT Oxygen Saturation - - Inhaled Oxygen Concentration - - Weight 124.7 kg (275 lb) 02/16/2007 6:40 PM CDT Height - - Body Mass Index 35.79 04/16/2005 8:46 AM CDT documented in this encounter Progress Notes Elpidio Abebe - 02/16/2007 8:22 PM CDT This office note has been dictated. Elpidio Abebe MD Elpidio Abebe - 02/16/2007 12:00 AM CDT SUBJECTIVE: The patient developed a plugged/muffled sensation in his left ear while showering this morning. He is going on vacation this coming . OBJECTIVE: Temp is 97.1, pulse 68, blood pressure 140/82, respirations 16, weight 285 pounds. He appears comfortable. Right TM and external otic canal normal and free of cerumen. Left external otic canal was occluded by cerumen. ASSESSMENT: Cerumen impaction, left ear. PLAN: Ear lavage was initially attempted by nursing staff unsuccessfully. The ear lavage was successfully completed by this examiner. Following removal of the cerumen, his symptoms resolved. The tympanic membrane and external otic canal appeared normal. P cc: documented in this encounter Plan of Treatment Upcoming Encounters Date Type Specialty Care Team Description 07/12/2022 Appointment Optometry Linda Dorsey , OD [address] [place], [place] [phone] (Wo rk) documented as of this encounter Visit Diagnoses Diagnosis Impacted cerumen - Primary documented in this encounter Care Teams Business Systems Advisor Relationship Specialty Start Date End Date Dameon Li MD PCP - General 11/24/06 02/01/[address] [address] documented as of this encounter
--- OUTSIDE RECORDS SUMMARY | 2022-06-14 08:40 | XMS_ITS | Encounter Summary ---
:1950 Author Organization [facility] Address [address] [place] [address] Care Team Providers Name Role Phone Unassigned, Provider Primary Care Provider Unavailable Reason for Visit Reason Comments EYE EXAM,YEARLY DAVIS 10/2007 . Pt states he never adjusted to the RX glasses from 2007 and is wearing the old glasses. Pt states he has a pair of computer glasses that are go od. Pt states he is wearing the old PAL glasses and they a re not th e best. Encounter Details Date Type Department Care Team Description 10/07/2008 Office Visit [facility] Consoer, Jeremy Machuca, Examination of Eyes and Visi on (Primary Dx); [address] OD Myopia; [place], [place] [address] Unspecified Astigmatism; [phone] Presbyopia Social History Tobacco Use Types Packs/Day [...] Linda Dorsey , OD [address] [place], [place] [phone] (Wo rk) documented as of this encounter Visit Diagnoses Diagnosis Examination of eyes and vision - Primary Myopia Astigmatism, unspecified Presbyopia documented in this encounter Care Teams Development Coordinator Relationship Specialty Start Date End Date Unassigned, Provider PCP - General 02/02/08 10/22/08 [address] [place] [address] documented as of this encounter
--- OUTSIDE RECORDS SUMMARY | 2022-06-14 08:40 | XMS_ITS | Encounter Summary ---
:1950 Author Organization [facility] Address [address], [place] [address] Care Team Providers Name Role Phone Merissa Nelson MD Primary Care Provider Reason for Visit Reason Onset Date Comments Refill 10/21/2009 Encounter Details Date Type Department Care Team Description 10/21/2009 Refill [facility] Merissa Nelson MD Refill [address] [facility] [address] [place], [place] [address] [place] [address] [phone] (Wo rk) Social History Tobacco Use Types [...] Linda Dorsey , OD [address] [place], [place] [phone] (Wo rk) documented as of this encounter Visit Diagnoses Not on filedocumented in this encounter Care Teams Community Assistant Relationship Specialty Start Date End Date Merissa Nelson MD PCP - General 10/23/08 [address] [place], [place] [phone] documented as of this encounter
--- OUTSIDE RECORDS SUMMARY | 2022-06-14 08:40 | XMS_ITS | Encounter Summary ---
:1950 Author Organization [facility] Address [address], [place] [address] Care Team Providers Name Role Phone Merissa Nelson MD Primary Care Provider Encounter Details Date Type Department Care Team Description 10/22/2009 Orders Only [facility] Merissa Nelson E levated Prostate Practice MD Specific Antigen (PSA) [address] [facility] [address] (Primary Dx) [place] [id number] [phone] Social History Tobacco Use Types Packs/Day Years [...] Optometry Linda Dorsey , OD [address] [place], [place] [phone] (Wo rk) documented as of this encounter Visit Diagnoses Diagnosis Elevated prostate specific antigen (PSA) - Primary documented in this encounter Care Teams Certified Respiratory Therapist Relationship Specialty Start Date End Date Merissa Nelson MD PCP - General 10/23/08 [address] [place], [place] [phone] documented as of this encounter
--- OUTSIDE RECORDS SUMMARY | 2022-06-14 08:40 | XMS_ITS | Encounter Summary ---
:1950 Author Organization [facility] Address [address] [place] [address] Care Team Providers Name Role Phone Merissa Nelson MD Primary Care Provider Reason for Visit Reason Comments Eye Exam DAVIS 08/14/2015. Decreased vi matt; both eyes; progressive; at intermediate. He wears glasses most of the time. He denies using any drops or ointment in his eyes. He did not get new glasses after his exam last year but wants to this year. He also wants com puter glasses. Encounter Details Date Type Department Care Team Description 09/07/2016 Office Visit [facility] Monika Funk Visit for eye and vision exa m (Primary Dx); [address] J, OD Regular astigmatism, bilateral; [place], [place] [address] Hyperopia, bilateral; [phone] [place] Presbyopia; [place] [address] Nuclear cataract, bilateral Social History Tobacco Use Types Packs/Day Years Used Date Smoking Tobacco: Former Cigarettes 0.3 23 Quit : 08/08/1988 Alcohol Use Standard Drinks/Week Comments Yes 10 (1 standard drink = 0.6 oz pure alcoh ol) Sex Assigned at Date Recorded Not on file documented as of this encounter Patient Instructions Patient InstructionsMonika Funk, OD - 09/07/2016 10:36 AM CST Thanks for coming to the eye clinic [...] sight threatening and painful eye injuries? supervisor riprap placing some safety glasses before you start that next project at home, or before you start up the refining still operator. Did you know that our optical shops have a large selection of glasses for any budget? Stop in and let our knowledgeable optical team help you on your way out today. You can reach us by phone or through the [employer] secure online [employer] site. Let us know how we can help you until we see you again. ACE CHARGING MACHINE OPERATOR documented in this encounter Progress Notes Monika Funk, OD - 09/07/2016 11:07 AM CST Chief Complaint Patient presents with ??? Eye Exam DAVIS 08/14/2015. Decreased vision; both eyes; progressive; at intermediate. He wears glasses most ofthe time. He denies using any drops or ointment in his eyes. He did not get new glasses after his exam last year but wants to this year. He also wants computer glasses. History Reviewed Assessment ICD-10-CM 1. Visit for eye and vision exam Z01.00 2. Regular astigmatism, bilateral H52.223 REFRACTIVE STATE, DETERMINATION OF ([address]) 3. Hyperopia, bilateral H52.03 REFRACTIVE STATE, DETERMINATION OF ([address]) 4. Presbyopia H52.4 REFRACTIVE STATE, DETERMINATION OF ([address]) 5. Nuclear cataract, bilateral H25.13 Plan Spectacle Prescription given. Patient understood what was discussed and all questions were answered. See patient instructions. Cataract both eyes. Return to clinic in 1 year for complete eye exam. Monika Funk,IDALIA ACE CHARGING MACHINE OPERATOR documented in this encounter Plan of Treatment Upcoming Encounters Date Type Specialty Care Team Description 07/12/2022 Appointment Optometry Linda Dorsey , OD [address] [place], [place] [phone] (Wo rk) documented as of this encounter Visit Diagnoses Diagnosis Visit for eye and vision exam - Primary Examination of eyes and vision Regular astigmatism, bilateral Hyperopia, bilateral Presbyopia Nuclear cataract, bilateral documented in this encounter Care Teams Assistant Boys Track Coach Relationship Specialty Start Date End Date Merissa Nelson MD PCP - General 10/23/08 [address] [place] [address] documented as of this encounter
--- OUTSIDE RECORDS SUMMARY | 2022-06-14 08:41 | XMS_ITS | Encounter Summary ---
:1950 Author Organization [facility] Address [address], [place] [address] Care Team Providers Name Role Phone Tj Jon MD Primary Care Provider Encounter Details Date Type Department Care Team Description 08/19/1998 Office Visit [facility] VACCI NE FOR IPV (POLIOMYELITIS); Medicine VACCINE FOR VIRAL HEPATITIS [address] [place], [place] [address] Social History Tobacco Use Types Packs/Day Years Used Date Smoking Tobacco: Never Assessed Sex Assigned at Date Recorded Not on file documented as of this encounter Plan of Treatment Upcoming Encounters Date Type Specialty Care Team Description 07/12/2022 Appointment Optometry Linda Dorsey , OD [address] [place], [place] [phone] (Wo rk) documented as of this encounter Visit Diagnoses Diagnosis Need for prophylactic vaccination and in oculation against poliomyelitis Need for prophylactic vaccination and in oculation against viral hepatitis documented in this encounter Care Teams Track Rider Relationship Specialty Start Date End Date Tj Jon MD PCP - General 10/01/1997 11/12/02 [address] [place] [address] documented as of this encounter
--- OUTSIDE RECORDS SUMMARY | 2022-06-14 08:41 | XMS_ITS | Encounter Summary ---
:1950 Author Organization [facility] Address [address] [place] [address] Care Team Providers Name Role Phone Merissa Nelson MD Primary Care Provider Reason for Visit Reason Comments ROUTINE HEALTH MAINTENANCE Encounter Details Date Type Department Care Team Description 10/14/2006 Office Visit [facility] Dameon Li MD Preventative Health Care (Primary Dx); Practice [address] [place] [address] weight problem; [address] [facility] [address] Pain in Joint, Lower Leg; [place], [place] Skin Dis order [id number] [phone] Social History Tobacco Use Types Packs/Day Years Used Date Smoking Tobacco: Former Cigarettes 0.3 23 Quit : 08/08/1988 Alcohol Use Standard Drinks/Week Comments Yes 10 (1 standard drink = 0.6 oz pure alcoh ol) Sex Assigned at Date Recorded Not on file documented as of this encounter Last Filed Vital Signs Vital Sign Reading Time Taken Comments Blood Pressure 132/80 10/14/2006 11:00 AM LOUVER DOOR ASSEMBLER Pulse 72 10/14/2006 11:00 AM LOUVER DOOR ASSEMBLER Temperature - - Respiratory Rate 20 10/14/2006 11:00 AM LOUVER DOOR ASSEMBLER Oxygen Saturation - - Inhaled Oxygen Concentration - - Weight 123.9 kg (273 lb 3.2 oz) 10/14/2006 11:00 AM LOUVER DOOR ASSEMBLER Height - - Body Mass Index 35.56 04/16/2005 8:46 AM CDT documented in this encounter Progress Notes Dameon Li - 10/14/2006 11:28 AM CST Tyler Muro 56 yr male came for regular physical exam. See my dictation. Review of systems include: EYES: no visual blurring, no double vision, no eye pain, ENT: no decrease in hearing, no dental problems, no persistently sore throat, RESPIRATORY: no shortness of breath, no cough, no wheezing, CARDIOVASCULAR: no palpitations, no chest pain, GASTROINTESTINAL: normal appetite, no nausea, no heartburn or relux, no abdominal pain, no melena, no hematochezia, no constipation, no diarrhea, GENITOURINARY:no dysuria, no frequency, no urgency, no hematuria, no incontinence, MUSCULOSKELETAL: no weakness, NEUROLOGIC: no numbness or tingling of hands, no numbness or tingling of feet, no syncope, PSYCHIATRIC: no sleep disturbances, no anxiety, no depression, no excessive alcohol consumption, no illegal druguse, no marital problems, no sexual difficulties, HEMATOLOGIC/LYMPHATIC/IMMUNOLOGIC: no fevers, no night sweats, no chills, no unexpected weight loss, ENDOCRINE: no cold intolerance, no heat intolerance, no polydypsia, no polyphagia Review of patient's allergies indicates no known allergies. Past Medical History Diagnosis Date ??? 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 ASPIRIN 325MG ORAL TABS 2 tablets every 4-6 hours 0 Past Surgical History Procedure Date ??? Tonsillectomy prim/sec; age 10/over childhood ??? Adenoidectomy primary; age 10/over childhood ??? Repr init ing hernia 5yr/more; rduc childhood ??? Hemorrhoidectomy external complete 1973 ??? Vasect uni/arianna-sep proc-postop 1983 Family History Problem Relation ??? Hypertension Father ??? Glaucoma Father History Social History ??? Marital Status: Unknown Spouse Name: Kristan Number of Children: 3 ??? 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 Tobacco Use: Quit -- 0.3 packs/day for 23 years Quit date: 08/08/1988 ??? Alcohol Use: 6 oz/week ??? Drug Use: No ??? Sexually Active: Yes -- Female partners Control/ Protection: Surgical vasectomy Other Topics Concern ??? 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 Lives with his in a 2 story house with 2 cat, a dog and a parakeet. BP 132/80 Pulse 72 Resp 20 Wt 273 lbs 3.2 oz (123.923 kg) general: stable, no acute distress Heent: normal tympanic membrane, no mass or Lymph nose in neck and discharge from nose. lung: clear and no wheezing or crackles heart: no murmur and regular heart beat abdominal: no mass, no tenderness, good bowel sound musculoskeletal exam : no joint tenderness, no joint motion limitation skin: see my dictation. Neuro: normal EOM, strength: 5/5, DTR: normal, normal gait, normal motor and sensory. Assessment and plan: 1) Physical exam: see order of tests. See my dictation. Dameon Li MD ER DOOR ASSEMBLER Dameon Li - 10/14/2006 12:00 AM LOUVER DOOR ASSEMBLER SUBJECTIVE: Patient 56 years old. Came for a physical exam. At the same time he had: 1. Mild right knee when he go up stair and down stairs on and off. 2. He has a weight problem. 3. He has skin mole in his back. Patient is 56 years old with not much family or past medical history, came for a physical exam. He said that he has this right knee pain on and off when he go up stair, down stairs, and usually it goes away in a few days. 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 Probably also related his weight problem. Probably he can manage with the tqah-uzr-cfujtar medication and weight loss. Also we talk about his diet. He drink a lot of juice during the days. And at dessert he eat ice creams and some Coke at night time. Probably he should cut down those to lose weight. And he can start some exercise to lose weight. Otherwise in his back he has a one skin moles which is more distinctive than others. He has many skin moles and skin tags. OBJECTIVE: Patient's skin exam: In his back there is 1 skin mole, has some halo sign. Inside is darker, outside is more sewer system supervisor brown color. Has irregular border. It is about 1 centimeter size. Other than that his rectal exam was normal. No mass palpable. ASSESSMENT: 1. Preventive service. 2. Skin disorder. 3. Knee pain on and off. 4. Weight problem. PLAN: I'm doing some several blood work. He had a colonoscopy last year. He will come back in 2 weeks for skin biopsy. This is addendum of his physical exam. A cc: ER DOOR ASSEMBLER documented in this encounter Plan of Treatment Upcoming Encounters Date Type Specialty Care Team Description 07/12/2022 Appointment Optometry Linda Dorsey , OD [address] [place], [place] [phone] (Wo rk) documented as of this encounter Procedures Procedure Name Priority Date/Time Associated Diagnosis Comme nts PROSTATIC SPECIFIC Routine 10/14/2006 11:29 AM weight pr oblem Results for this ANTIGEN(SCREEN) LOUVER DOOR ASSEMBLER Preventative Health proce dure are in Care the results section. LIPID PANEL, FAST > Routine 10/14/2006 11:29 AM weight p roblem Results for this 12 HOUR LOUVER DOOR ASSEMBLER Preventative Health procedur e are in Care the results section. GLUCOSE - FASTING > Routine 10/14/2006 11:29 AM weight p roblem Results for this 8 HRS FASTING LOUVER DOOR ASSEMBLER Preventative Health procedu re are in Care the results section. documented in this encounter Results (ABNORMAL) PROSTATIC SPECIFIC ANTIGEN(SCREEN) (V76.44) (10/14/2006 11:29 AM LOUVER DOOR ASSEMBLER) [facility]ist Method Time Signature Prostatic Spec 3.88 (H) 0 - 3.5 [facility] Ag ng/ml Specimen Anatomical Collection Method Collection Time Receive d Time (Source) Location / / Volume Laterality 10/14/2006 11:29 10/14/2006 AM LOUVER DOOR ASSEMBLER 11:30 AM LOUVER DOOR ASSEMBLER Dameon Li MD LAB_1 Performing Organization Address City/State/ZIP Code Phon e Number [facility] [phone] [facility] [address] [place] [phone] GLUCOSE - FASTING > 8 HRS FASTING (V77.1) (10/14/2006 11:29 AM LOUVER DOOR ASSEMBLER) athologist Signature Glucose 98 70 - 100 [facility] mg/dl Hours Fasting 14 hours [facility] Specimen Anatomical Collection Method Collection Time Receive d Time (Source) Location / / Volume Laterality 10/14/2006 11:29 10/14/2006 AM LOUVER DOOR ASSEMBLER 11:30 AM LOUVER DOOR ASSEMBLER Dameon Li MD LAB_1 Performing Organization Address [facility] Phon e Number [facility] [phone] [facility] [address] [place] [phone] (ABNORMAL) CHOLESTEROL LIPID PANEL FAST >12HR (10/14/2006 11:29 AM LOUVER DOOR ASSEMBLER) P athologist Signature Cholesterol 204 (H) <200 mg/dl [facility] Comment: Result should not be interpreted without the patient's history of cardiovascular risk factors. Triglyceride 107 <200 mg/dl [facility] HDL 54 >35 mg/dl [facility] LDL, Calc. 129 mg/dl [facility] Hours Fasting 14 hours [facility] Specimen Anatomical Collection Method Collection Time Receive d Time (Source) Location / / Volume Laterality 10/14/2006 11:29 10/14/2006 AM LOUVER DOOR ASSEMBLER 11:30 AM LOUVER DOOR ASSEMBLER Dameon Li MD LAB_1 Performing Organization Address [facility] Phon e Number [facility] [employer] [phone] [address] documented in this encounter Visit Diagnoses Diagnosis Preventative health care - Primary Routine general medical examination at a health care facility weight problem Obesity, unspecified Pain in joint, lower leg Skin disorder Unspecified disorder of skin and subcuta neous tissue documented in this encounter Care Teams Java Development Manager Relationship Specialty Start Date End Date Merissa Nelson MD PCP - General 10/04/06 11/23/[address] [place] [address] documented as of this encounter
--- OUTSIDE RECORDS SUMMARY | 2022-06-14 08:41 | XMS_ITS | Encounter Summary ---
:1950 Author Organization [facility] Address [address] [place] [address] Care Team Providers Name Role Phone Merissa Nelson MD Primary Care Provider Encounter Details Date Type Department Care Team Description 04/16/2005 Orders Only [facility] Unknown, Physician [address] [facility] [address], [place] [address] [place] [address] [phone] (Wo rk) Social History Tobacco Use Types Packs/Day Years Used Date Smoking Tobacco: Former Cigarettes 0.3 23 Quit : 08/08/1988 Alcohol Use Standard Drinks/Week Comments Yes 10 (1 standard drink = 0.6 oz pure alcoh ol) Sex Assigned at Date Recorded Not on file documented as of this encounter Procedure Notes Delonte Gray - 04/16/2005 12:00 AM CDTAssociated Order(s): AUDIOLOGY DX documented in this encounter Plan of Treatment Upcoming Encounters Date Type Specialty Care Team Description 07/12/2022 Appointment Optometry Linda Dorsey , OD [address] [place] [place], [place] [phone] (Wo rk) documented as of this encounter Procedures Procedure Name Priority Date/Time Associated Diagnosis Comme nts AUDIOLOGY DX 04/16/2005 12:00 AM Results for this CDT procedure are i n the results section . documented in this encounter Results AUDIOLOGY DX (04/16/2005 12:00 AM CDT) Narrative 04/16/2005 12:00 AM CDT This result has an attachment that is no t available. Ordered by an unspecified provider. Transcriptions ConnieaveryDelonte lanier Justin - 04/16/2005 12:00 A M CDT Physician Unknown DUMMY/OTHER/AR documented in this encounter Visit Diagnoses Not on filedocumented in this encounter Care Teams Integrated Specialist Relationship Specialty Start Date End Date Merissa Nelson MD PCP - General 10/23/[address] [place] [address] documented as of this encounter
--- OUTSIDE RECORDS SUMMARY | 2022-06-14 08:41 | XMS_ITS | Encounter Summary ---
:1950 [facility] Address [address] [place] [address] Care Team Providers Name Role Phone Delonte Gray MD Primary Care Provider Encounter Details Date Type Department Care Team Description 04/20/2003 Office Visit [facility] LOW DENISE K PAIN(ACUTE)<[address] [place] [address] [place], [place] [address] Social History Tobacco Use Types Packs/Day Years Used Date Smoking Tobacco: Former Cigarettes Quit : 08/08/1988 Alcohol Use Standard Drinks/Week Comments Yes 10 (1 standard drink = 0.6 oz pure alcoh ol) Sex Assigned at Date Recorded Not on file documented as of this encounter Last Filed Vital Signs Vital Sign Reading Time Taken Comments Blood Pressure 150/80 04/20/2003 12:45 PM CDT Pulse 64 04/20/2003 12:45 PM CDT Temperature 36.1 ??C (97 ??F) 04/20/2003 12:45 PM CDT Respiratory Rate - - Oxygen Saturation - - Inhaled Oxygen Concentration - - Weight - - Height - - Body Mass Index - - documented in this encounter Progress Notes 04/20/2003 12:45 PM CDT Room # n/a Rooming time: 12:46 PM Tyler Muro is here today for back spasms / lower back. Started yesterday when he was putting his socks on. . Accompanied by unaccompanied. History is obtained from patient. O2 Sat.: not done. Peak Flow: not done. AccuCheck: not done. Weight taken with patient clothed? not done. Temperature source: TYMPANIC. Pulse source: radial B/P was : taken on the left arm. B/P cuff size:Large. Tobacco Status reviewed? (see History Social-Substance) -YES Lives in a smoking environment : NO. Vision checked: not done, not done. Last Tetanus: not sure, Immunizations up to date: YES. In the past year, have you been physically or emotionally mistreated by someone important to you? -NO green feed attendant offered -NOT APPLICABLE. Health Education given -NO. Primary provider: Lauro Gray MD Contact phone number [phone] (home) [phone] (work) Alternate phone number n/a. Current prescriptions: IBUPROFEN 200MG ORAL TABS, as needed, D: , R: 0 Review of patient's allergies indicates no known allergies. Ness Dahl RN 04/20/2003 12:46 PM Clari Devine - 04/20/2003 12:00 AM CDTS: 53 year old gentlemen presenting with lower back spasms of two days duration. He states that he has had them recurrently in the past but not for awhile at this point. He sometimes will just tough them out and they resolve or sometimes he comes in and is treated with a muscle relaxant. Records reveal that the last time he needed a muscle relaxant was in 1994. He has been using ibuprofen intermittently and heat alternating with cold. The pain does not radiate to his legs. O: On exam he is not in any acute distress. His pain is lower back. It is not localized. CMS is intact. Straight leg raising is positive bilaterally. He moves very slowly and is stiff and holds his back straight and stiff. The rest of his exam is nonrevealing. His back pains typically start with mundane activity such as turning or going up stairs or yesterday his symptoms started when he was putting his socks on. A: Low back pain and muscle strain. P: I did treat him with Flexeril 10 mg q hs p.r.n. He may take 2 or 3 tablets total daily p.r.n. #10 were given. He was advised to continue his ibuprofen, continue with cold packs and follow up as needed. P cc: documented in this encounter Plan of Treatment Upcoming Encounters Date Type Specialty Care Team Description 07/12/2022 Appointment Optometry Linda Dorsey , OD [address] [place], [place] [phone] (Wo rk) documented as of this encounter Visit Diagnoses Diagnosis Lumbago documented in this encounter Care Teams Commercial Construction Superintendent Relationship Specialty Start Date End Date Delonte Gray MD PCP - General 11/13/02 10/03/06 [facility] [id number] [place] [address] documented as of this encounter
--- OUTSIDE RECORDS SUMMARY | 2022-06-14 08:41 | XMS_ITS | Encounter Summary ---
:1950 Author Organization [facility] Address [address] [place] [address] Care Team Providers Name Role Phone Delonte Gray MD Primary Care Provider Encounter Details Date Type Department Care Team Description 04/29/2003 Office Visit [facility] Delonte Gray ACU TE SINUSITIS NOS Practice MD Justin (Primary Dx) [address] [place] [address] [facility] [address] [address] [place], [place] [phone] [id number] Social History Tobacco Use Types Packs/Day Years Used Date Smoking Tobacco: Former Cigarettes Quit : 08/08/1988 Alcohol Use Standard Drinks/Week Comments Yes 10 (1 standard drink = 0.6 oz pure alcoh ol) Sex Assigned at Date Recorded Not on file documented as of this encounter Last Filed Vital Signs Vital Sign Reading Time Taken Comments Blood Pressure 130/80 04/29/2003 3:30 PM CDT Pulse 72 04/29/2003 3:30 PM CDT Temperature 36.9 ??C (98.5 ??F) 04/29/2003 3:30 PM CDT Respiratory Rate 16 04/29/2003 3:30 PM CDT Oxygen Saturation - - Inhaled Oxygen Concentration - - Weight 121.7 kg (268 lb 3.2 oz) 04/29/2003 3:30 PM CDT Height - - Body Mass Index - - documented in this encounter Progress Notes 04/29/2003 3:30 PM CDT Tyler Muro is here today for sinus pressure, headache, tooth pain. Sx x 4 days. Are you having other pain today, that you want to discuss with the provider? -NO Preventive Services up to date? -ADVISED TO FOLLOW UP WITH PRIMARY CARE PROVIDER Immunizations up to date? -YES Do you ever feel physically threatened or emotionally afraid? -NOT ASKED Tobacco Status reviewed? (see History Social-Substance) -YES batch attendant offered? -NOT APPLICABLE. Aspirin taken daily? -NO BP was taken on the RIGHT arm. BP cuff size used? -Adult Large Health Education given? -NO. Contact phone number [phone] (home) [phone] (work), alternate phone number. Mayuri Coto CMA 04/29/2003 3:32 PM Current prescriptions: ASPIRIN 325MG ORAL TABS, 2 tablets every 4-6 hours, D: , R: 0 TYLENOL 325 MG OR TABS, 2 TABLETS EVERY 4 HOURS NEEDED, D: , R: 0 IBUPROFEN 200MG ORAL TABS, as needed, D: , R: 0 FLEXERIL 10MG ORAL TABS, 1 TAB QHS PRN. 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 He thought it was a toothache so he saw his dentist recently. Took an x-ray and said there was a sinus infection. He has had some nasal congestion but no post nasal drainage. He does have a history of allergic rhinitis. O: Healthy adult male in no acute distress. Vital signs are unremarkable. HEENT is unremarkable. Impression: Sinusitis based on dental x-ray. Plan: Symptomatic treatment with decongestants, nasal saline irrigation. Amoxicillin. Follow-up depending on response to treatment. P cc: documented in this encounter Plan of Treatment Upcoming Encounters Date Type Specialty Care Team Description 07/12/2022 Appointment Optometry Linda Dorsey , OD [address] [place], [place] [phone] (Wo rk) documented as of this encounter Visit Diagnoses Diagnosis Acute sinusitis, unspecified - Primary documented in this encounter Care Teams Critical Care Physician Assistant Relationship Specialty Start Date End Date Delonte Gray MD PCP - General 11/13/02 10/03/06 [facility] [address] [place] [address] documented as of this encounter
--- OUTSIDE RECORDS SUMMARY | 2022-06-14 08:41 | XMS_ITS | Encounter Summary ---
:1950 Author Organization [facility] Address [address] [address] Care Team Providers Name Role Phone Delonte Gray MD Primary Care Provider Reason for Visit Reason Comments BP CHECK,NURSE Encounter Details Date Type Department Care Team Description 10/01/2005 Office Visit [facility] Adult [facility] NOS Department (Primary Dx) [id number] [place] [address] Social History Tobacco Use Types Packs/Day Years Used Date Smoking Tobacco: Former Cigarettes 0.3 23 Quit : 08/08/1988 Alcohol Use Standard Drinks/Week Comments Yes 10 (1 standard drink = 0.6 oz pure alcoh ol) Sex Assigned at Date Recorded Not on file documented as of this encounter Last Filed Vital Signs Vital Sign Reading Time Taken Comments Blood Pressure 128/76 10/01/2005 8:30 AM AGRONOMY PROFESSOR Pulse 80 10/01/2005 8:30 AM AGRONOMY PROFESSOR Temperature - - Respiratory Rate 16 10/01/2005 8:30 AM AGRONOMY PROFESSOR Oxygen Saturation - - Inhaled Oxygen Concentration - - Weight - - Height - - Body Mass Index - - documented in this encounter Progress Notes 10/01/2005 8:30 AM AGRONOMY PROFESSOR S: Tyler Muro here today for follow up blood pressure check. O: Blood pressures recorded. All other HM needs up to date. A: Readings within normal limits. P: States he will have it checked more regularly by a nurse at his [facility] Nely Manzano RN 10/01/2005 8:37 AM documented in this encounter Plan of Treatment Upcoming Encounters Date Type Specialty Care Team Description 07/12/2022 Appointment Optometry Linda Dorsey , OD [address] [place], [place] [phone] (Wo rk) documented as of this encounter Visit Diagnoses Diagnosis Unspecified essential hypertension (HRC) - Primary Unspecified essential hypertension documented in this encounter Care Teams Hand I Thermal Cutter Relationship Specialty Start Date End Date Delonte Gray MD PCP - General 11/13/02 10/03/[address] [address] documented as of this encounter
--- OUTSIDE RECORDS SUMMARY | 2022-06-14 08:41 | XMS_ITS | Encounter Summary ---
:1950 Author Organization [facility] Address [address] [place] [address] Care Team Providers Name Role Phone Merissa Nelson MD Primary Care Provider Encounter Details Date Type Department Care Team Description 08/19/1998 Orders Only Tj Jon MD [address] [place], [place] [phone] (Wo rk) Social History Tobacco Use Types Packs/Day Years Used Date Smoking Tobacco: Never Assessed Sex Assigned at Date Recorded Not on file documented as of this encounter Plan of Treatment Upcoming Encounters Date Type Specialty Care Team Description 07/12/2022 Appointment Optometry Linda Dorsey , OD [address] [place], [place] [phone] (Wo rk) documented as of this encounter Visit Diagnoses Not on filedocumented in this encounter Care Teams Turpentine Farmer Relationship Specialty Start Date End Date Merissa Nelson MD PCP - General 10/23/08 [address] [place] [address] documented as of this encounter
--- OUTSIDE RECORDS SUMMARY | 2022-06-14 08:41 | XMS_ITS | Encounter Summary ---
:1950 Author Organization [facility] Address [address] [place] [address] Care Team Providers Name Role Phone Merissa Nelson MD Primary Care Provider Reason for Visit Reason Comments EYE EXAM,YEARLY DAVIS 11/2003 Dr. Terry VISION, BLURRED Harder to see print on the T V screen Encounter Details Date Type Department Care Team Description 10/14/2006 Office Visit [facility] James Smith, OD Examination of Eyes and Vision (Primary Dx); [address] [facility] Myopia; [place], [place] [address] CLINIC Presbyopia; [phone] [address] [facility] [place] [address] (Wo rk) Social History Tobacco Use Types Packs/Day Years Used Date Smoking Tobacco: Former Cigarettes 0.3 23 Quit : 08/08/1988 Alcohol Use Standard Drinks/Week Comments Yes 10 (1 standard drink = 0.6 oz pure alcoh ol) Sex Assigned at Date Recorded Not on file documented as of this encounter Progress Notes James Smith - 10/14/2006 9:46 AM CST HPI: Chief Complaint Patient presents with ??? EYE EXAM,YEARLY DAVIS 11/2003 Dr. Terry ??? VISION, BLURRED Harder to see print on the TV screen Reviewed patient???s chief complaint, medications, allergies, history, and pre- screening results. See Documentation Flowsheets for exam results. Assessment: Routine eye exam Fireman Helper with pres Plan: New glasses prescription given Discussed LASIK Return to clinic: 1yr/prn James Smith, IDALIA EXOLOGIST documented in this encounter Plan of Treatment Upcoming Encounters Date Type Specialty Care Team Description 07/12/2022 Appointment Optometry Linda Dorsey , OD [address] [place], [place] [phone] (Wo rk) documented as of this encounter Visit Diagnoses Diagnosis Examination of eyes and vision - Primary Myopia Presbyopia Astigmatism, unspecified documented in this encounter Care Teams Electric Clock Mechanic Relationship Specialty Start Date End Date Merissa Nelson MD PCP - General 10/04/06 11/23/[address] [place] [address] documented as of this encounter
--- OUTSIDE RECORDS SUMMARY | 2022-06-14 08:41 | XMS_ITS | Encounter Summary ---
:1950 Author Organization [facility] Address [address] [place] [address] Care Team Providers Name Role Phone Delonte Gray MD Primary Care Provider Reason for Visit Reason Comments FLEX SIG (PREVENTIVE) Encounter Details Date Type Department Care Team Description 04/27/2005 Office Visit [facility] SCREEN FOR MALIG Medicine NEOPLASMS, COLON [address] [place], [place] [address] Social History Tobacco Use Types Packs/Day Years Used Date Smoking Tobacco: Former Cigarettes 0.3 23 Quit : 08/08/1988 Alcohol Use Standard Drinks/Week Comments Yes 10 (1 standard drink = 0.6 oz pure alcoh ol) Sex Assigned at Date Recorded Not on file documented as of this encounter Patient Instructions Patient Hzkpoqedelzf99/20/2005 9:40 AM CDT After Flexible Sigmoidoscopy: Are there restrictions after a flexible sigmoidoscopy? Delay eating for 30 minutes after the examination. Air that has accumulated in your colon may causecramping. Walk, lie on your right side or take a warm bath to help get rid of the excess air and ease discomfort. When will results be available? Biopsy results or other specimen analyses will generally be reported within one week. Reports are sent to your primary care clinic. Please follow-up with them for your results. What should I watch for? It is important for you to recognize early signs of complications. Contact your health care provider promptly if you notice any of the following symptoms: 1. Severe abdominal pain- You may experience mild cramping and discomfort, but if you have severe pain, call your health care provider. 2. Rectal bleeding- You may have small amounts of blood in your stool for up to several days after your procedure. If you pass a large amount of blood or bleeding persists, notify your health care provider. 3. If you experience fever or chills, contact your clinic or after hours care team. documented in this encounter Progress Notes 04/27/2005 9:40 AM CDT Tyler Muro is seen for Flexible Sigmoidoscopy for RHM He has experienced no symptoms referable to the colon. Examination with a 70cm scope was done to 70 cm. Visualization past that point was limited and unremarkable. The prep was excellent. The following findings are noted: no abnormality found. The patient was advised of the findings and advised to repeat the exam in 5 years. Paras Nunez MD, 04/27/2005, 10:07 AM documented in this encounter Nursing Notes 04/27/2005 9:40 AM CDT >> GUIDO CASTAÑEDA 04/27/2005 9:54 am Tyler Muro is here today for Screening Flex Sig The prep used for the procedure was Fleet rectal enema and Phospho Soda The patient's PCP is MD Guido Bashir LPN, 04/27/2005 documented in this encounter Plan of Treatment Upcoming Encounters Date Type Specialty Care Team Description 07/12/2022 Appointment Optometry Linda Dorsey , OD [address] [place], [place] [phone] (Wo rk) documented as of this encounter Visit Diagnoses Diagnosis Special screening for malignant neoplasm s, colon documented in this encounter Care Teams Adobe Layer Helper Relationship Specialty Start Date End Date Delonte Gray MD PCP - General 11/13/02 10/03/06 [facility] [address] [place] [address] documented as of this encounter
--- OUTSIDE RECORDS SUMMARY | 2022-06-14 08:41 | XMS_ITS | Encounter Summary ---
:1950 Author Organization [facility] Address [address] [place] [address] Care Team Providers Name Role Phone Delonte Gray MD Primary Care Provider Reason for Visit Reason Comments PE Encounter Details Date Type Department Care Team Description 04/16/2005 Office Visit [facility] Delonte Gray PRE VENTIVE CARE EXAM (Primary Dx); Polina Anderson MD VACCINE FOR TETANUS + DIPHTHERIA; [address] [facility] SCREEN DIABETES MELLITUS; [place] [address] [facility] SCREEN FOR LIPID DISORDERS; [address] [place], [place] SCREEN MAL NEOP-PROSTATE(PSA ); [phone] [id number] TINNITUS NOS Social History Tobacco Use Types Packs/Day Years Used Date Smoking Tobacco: Former Cigarettes 0.3 23 Quit : 08/08/1988 Alcohol Use Standard Drinks/Week Comments Yes 10 (1 standard drink = 0.6 oz pure alcoh ol) Sex Assigned at Date Recorded Not on file documented as of this encounter Last Filed Vital Signs Vital Sign Reading Time Taken Comments Blood Pressure 128/90 04/16/2005 8:46 AM CDT Pulse 74 04/16/2005 8:46 AM CDT Temperature 36.9 ??C (98.4 ??F) 04/16/2005 8:46 AM CDT Respiratory Rate 16 04/16/2005 8:46 AM CDT Oxygen Saturation - - Inhaled Oxygen Concentration - - Weight 122.3 kg (269 lb 9.6 oz) 04/16/2005 8:46 AM CDT Height 186.7 cm (6' 1.5) 04/16/2005 8:46 AM CDT Body Mass Index 35.09 04/16/2005 8:46 AM CDT documented in this encounter Progress Notes 04/16/2005 8:40 AM CDT Subjective: 55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 He has a high pitched tinnitus that is waxing and waning. Has occasional acid reflux. His voice in choir has changed form cortez to more tenor. General appearance: Alert, NAD, cooperative Head: normal cephalic Eyes: PERRL, EOMs intact, conjunctiva clear bilaterally Ears: TMs clear with LR intact bilateral,Ext canals patent without inflammation bilateral Nose/Sinuses: Nostrils patent without discharge Oropharynx: benign Neck: supple,without masses Lymph: without significant adenopathy Back: Back symmetric, no curvature. ROM normal. No CVA tenderness. Chest: clear to auscultation without rales or wheezes,satisfactory aeration Cardiovascular: S1, S2 without murmur, RSR,normal, full pulses all extremities Abdomen: soft, without masses, distention or organomegaly,bowel sounds intact : normal genitalia Extremities: free of edema Skin: positives: multiple skin tags. Neuro: Gait normal. Sensation grossly intact. Audiogram- high frequency loss Assessment: borderline BP. Obesity. Hearing loss with tinnitus. Prob metabolic syndrome. PLAN: Exercise and diet discussed. Labs as ordered. Monitor BP for 3 months and review. flexible sigmoidoscopy. Lauro Gray MD Department of Family Practice documented in this encounter Nursing Notes 04/16/2005 8:40 AM CDT >> CHRISTOFER QUARLES 04/16/2005 9:32 am CHRISTOFER QUARLES 04/16/2005 9:14 am audiogram results: Right:810 98 2904 5 2000 10 4000 40 Left: 776 24 5232 10 2000 20 4000 50 Christofer Quarles LPN documented in this encounter Plan of Treatment Upcoming Encounters Date Type Specialty Care Team Description 07/12/2022 Appointment Optometry Linda Dorsey , OD [address] [place], [place] [phone] (Wo rk) documented as of this encounter Procedures Procedure Name Priority Date/Time Associated Comments Diagnosis PROSTATIC SPECIFIC Routine 04/16/2005 9:22 AM Screen Mal Res ults for this ANTIGEN(SCREEN) CDT Neop-Prostate(Psa) proced ure are in the results section. LIPID PANEL, FAST > Routine 04/16/2005 9:22 AM Screen For Lipi d Results for this 12 HOUR CDT Disorders procedure are i n the results section. GLUCOSE - FASTING > Routine 04/16/2005 9:22 AM Screen Diabetes Results for this 8 HRS FASTING CDT Mellitus procedure are in the results section. AUDIOLOGY DIAGNOSTIC 04/16/2005 Results for this procedure are i n the results section. documented in this encounter Results PROSTATIC SPECIFIC ANTIGEN(SCREEN) (V76.44) (04/16/2005 9:22 AM CDT) athologist Signature Prostatic Spec 3.37 0 - 3.5 [facility] Ag ng/ml Specimen Anatomical Collection Method Collection Time Receive d Time (Source) Location / / Volume Laterality 04/16/2005 9:22 AM 5 9:23 CDT AM CDT Delonte Gray MD LAB_1 Performing Organization Address [facility] Phon e Number [email or web address] [phone] [facility] [address] [place] [phone] (ABNORMAL) CHOLESTEROL LIPID PANEL FAST >12HR FAST (04/16/2005 9:22 AM CDT) athologist Signature Cholesterol 210 (H) <200 mg/dl [facility] Comment: Result should not be interpreted without the patient's history of cardiovascular risk factors. Triglyceride 140 <200 mg/dl [facility] HDL 52 >35 mg/dl [facility] LDL, Calc. 130 mg/dl [facility] Hours Fasting 12 hours [facility] Specimen Anatomical Collection Method Collection Time Receive d Time (Source) Location / / Volume Laterality 04/16/2005 9:22 AM 5 9:23 CDT AM CDT Delonte Gray MD LAB_1 Performing Organization Address [facility]/ZIP [facility] Phon e Number [email or web address] [phone] [facility] [address] [place] [phone] GLUCOSE - FASTING > 8 HRS FASTING (V77.1) (04/16/2005 9:22 AM CDT) athologist Signature Glucose 98 70 - [facility] mg/dl Hours Fasting 12 hours [facility] Specimen Anatomical Collection Method Collection Time Receive d Time (Source) Location / / Volume Laterality 04/16/2005 9:22 AM 5 9:23 CDT AM CDT Delonte Gray MD LAB_1 Performing Organization Address City/State/ZIP Code Phon e Number [facility] [phone] [facility] [address] [phone] documented in this encounter Visit Diagnoses Diagnosis Routine general medical examination at [facility] facility - Primary Routine general medical [facility] at [facility] Need for Td vaccine Need for prophylactic vaccination with t etanus-diphtheria (Td) Screening for diabetes mellitus Screening for lipoid disorders Special screening for malignant neoplasm of prostate Unspecified tinnitus documented in this encounter Care Teams Mica Inspector Relationship Specialty Start Date End Date Delonte Gray MD PCP - General 11/13/02 10/03/06 [facility] [address] [place] [address] documented as of this encounter
--- OUTSIDE RECORDS SUMMARY | 2022-06-14 08:41 | XMS_ITS | Encounter Summary ---
:1950 Author Organization [facility] Address [address] [place] [address] Care Team Providers Name Role Phone Delonte Gray MD Primary Care Provider Reason for Visit Reason Comments BP CHECK,NURSE Encounter Details Date Type Department Care Team Description 04/27/2005 Office Visit [facility], Adult Av SCRE EN FOR HYPERTENSION Department [address] [place], [place] [address] Social History Tobacco Use Types Packs/Day Years Used Date Smoking Tobacco: Former Cigarettes 0.3 23 Quit : 08/08/1988 Alcohol Use Standard Drinks/Week Comments Yes 10 (1 standard drink = 0.6 oz pure alcoh ol) Sex Assigned at Date Recorded Not on file documented as of this encounter Last Filed Vital Signs Vital Sign Reading Time Taken Comments Blood Pressure 120/72 04/27/2005 11:15 AM CDT (from E xtended Vitals) Pulse 60 04/27/2005 11:14 AM CDT Temperature - - Respiratory Rate 16 04/27/2005 11:14 AM CDT Oxygen Saturation - - Inhaled Oxygen Concentration - - Weight - - Height - - Body Mass Index - - documented in this encounter Progress Notes 04/27/2005 11:00 AM CDT S: Tyler Muro here today for follow up blood pressure check. O: Blood pressures recorded. Additional readings taken, see extended vitals for documentation. A: Readings within normal limits. P: Return in 1-2 weeks for next reading. B/P elevated at 04/16/[address] Gray. To f/u and get some b/p's. Tammi Cano LPN 04/27/2005 11:14 AM documented in this encounter Plan of Treatment Upcoming Encounters Date Type Specialty Care Team Description 07/12/2022 Appointment Optometry Linda Dorsey , OD [address] [place], [place] [phone] (Wo rk) documented as of this encounter Visit Diagnoses Diagnosis Screening for hypertension documented in this encounter Care Teams Direct Support Worker Relationship Specialty Start Date End Date Delonte Gray MD PCP - General 11/13/02 10/03/06 [facility] [address] [place] [address] documented as of this encounter
--- OUTSIDE RECORDS SUMMARY | 2022-06-14 08:41 | XMS_ITS | Encounter Summary ---
:1950 Author Organization [facility] Address [address] [address] Care Team Providers Name Role Phone Merissa Nelson MD Primary Care Provider Encounter Details Date Type Department Care Team Description 10/14/2006 Correspondence None Hp Rois, Provider consent to release Social History Tobacco Use Types Packs/Day Years Used Date Smoking Tobacco: Former Cigarettes 0.3 23 Quit : 08/08/1988 Alcohol Use Standard Drinks/Week Comments Yes 10 (1 standard drink = 0.6 oz pure alcoh ol) Sex Assigned at Date Recorded Not on file documented as of this encounter Progress Notes Hp Rois, Provider - 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
--- OUTSIDE RECORDS SUMMARY | 2022-06-14 08:41 | XMS_ITS | Encounter Summary ---
:1950 Author Organization [facility] Address [address] [place] [address] Care Team Providers Name Role Phone Delonte Gray MD Primary Care Provider Encounter Details Date Type Department Care Team Description 11/15/2003 Correspondence None Unknown, Physici an Consent to Release Eye [address] [place], [place] [phone] (Wo rk) Social History Tobacco Use Types Packs/Day Years Used Date Smoking Tobacco: Former Cigarettes Quit : 08/08/1988 Alcohol Use Standard Drinks/Week Comments Yes 10 (1 standard drink = 0.6 oz pure alcoh ol) Sex Assigned at Date Recorded Not on file documented as of this encounter Progress Notes Unknown, Physician - 11/15/2003 12:00 AM CDT documented in this encounter Plan of Treatment Upcoming Encounters Date Type Specialty Care Team Description 07/12/2022 Appointment Optometry Linda Dorsey , OD [address] [place], [place] [phone] (Wo rk) documented as of this encounter Visit Diagnoses Not on filedocumented in this encounter Care Teams Office Machine Service Supervisor Relationship Specialty Start Date End Date Delonte Gray MD PCP - General 11/13/02 10/03/06 [facility] [address] [place] [address] documented as of this encounter
--- OUTSIDE RECORDS SUMMARY | 2022-06-14 08:41 | XMS_ITS | Encounter Summary ---
:1950 Author Organization [facility] Address [address] [place] [address] Care Team Providers Name Role Phone Delonte Gray MD Primary Care Provider Encounter Details Date Type Department Care Team Description 11/15/2003 Office Visit [facility] Jovani Terry EYE & VISION EXAMINATION; [address] M, OD [place], [place] [address] Social History Tobacco Use Types Packs/Day Years Used Date Smoking Tobacco: Former Cigarettes Quit : 08/08/1988 Alcohol Use Standard Drinks/Week Comments Yes 10 (1 standard drink = 0.6 oz pure alcoh ol) Sex Assigned at Date Recorded Not on file documented as of this encounter Progress Notes Jovani Terry - 11/15/2003 12:00 AM CDT documented in this encounter Plan of Treatment Upcoming Encounters Date Type Specialty Care Team Description 07/12/2022 Appointment Optometry Linda Dorsey , OD [address] [place], [place] [phone] (Wo rk) documented as of this encounter Visit Diagnoses Diagnosis Examination of eyes and vision Presbyopia documented in this encounter Care Teams Health Program Analyst Relationship Specialty Start Date End Date Delonte Gray MD PCP - General 11/13/02 10/03/06 [facility] [address] [place], [place] [phone] documented as of this encounter
--- OUTSIDE RECORDS SUMMARY | 2022-06-14 08:41 | XMS_ITS | Encounter Summary ---
:1950 Author Organization [facility] Address [address] [place] [address] Care Team Providers Name Role Phone Delonte Gray MD Primary Care Provider Encounter Details Date Type Department Care Team Description 11/16/2002 Office Visit [facility] Delonte Gray PLA NTAR Polina Anderson MD FASCIITIS/PLANTAR [address] [address] [facility] [place] [address] FAROOQ Hicks ANE [address] [place], [place] [phone] [address] Social History Tobacco Use Types Packs/Day Years Used Date Smoking Tobacco: Former Cigarettes Quit : 08/08/1988 Alcohol Use Standard Drinks/Week Comments Yes 10 (1 standard drink = 0.6 oz pure alcoh ol) Sex Assigned at Date Recorded Not on file documented as of this encounter Last Filed Vital Signs Vital Sign Reading Time Taken Comments Blood Pressure 148/90 11/16/2002 9:50 AM CDT Pulse 76 11/16/2002 9:50 AM CDT Temperature 36.1 ??C (97 ??F) 11/16/2002 9:50 AM CDT Respiratory Rate 20 11/16/2002 9:50 AM CDT Oxygen Saturation - - Inhaled Oxygen Concentration - - Weight 122.9 kg (270 lb 14.4 oz) 11/16/2002 9:50 AM CDT Height - - Body Mass Index - - documented in this encounter Progress Notes 11/16/2002 9:50 AM CDT Tyler Muro is here today for Right heel pain x 3 months- pain varies in intensity but never completely goes away. Are you having other pain today, that you want to discuss with the provider? -NO Preventive Services up to date? -ADVISED TO FOLLOW UP WITH PRIMARY CARE PROVIDER Immunizations up to date? -YES Do you ever feel physically threatened or emotionally afraid? -NOT ASKED Tobacco Status reviewed? (see History Social-Substance) -YES auto garage attendant offered? -NOT APPLICABLE. Aspirin taken daily? -NO BP was taken on the RIGHT arm. Large cuff used? -YES Health Education given? -NO. Contact phone number [phone] (home) [phone] (work), alternate phone number. Mayuri Goldman, [facility] 11/16/2002 9:48 AM No current prescriptions on file. 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 Always present to some extent, never goes away completely. Decreases if he walks more in the morning when he first gets up on it. O: Healthy middle-aged male in no acute distress. His vital signs are unremarkable except for his weight of 270. Exam of the foot shows tenderness in the plantar fascial area, he has good pulses. A: Plantar fasciitis. P: Symptomatic treatment with stretching, discussed options including nighttime splints and steroid injection in the future. IN SUMMARY: PLANTAR FASCIITIS P cc: documented in this encounter Plan of Treatment Upcoming Encounters Date Type Specialty Care Team Description 07/12/2022 Appointment Optometry Linda Dorsey , OD [address] [place], [place] [phone] (Wo rk) documented as of this encounter Visit Diagnoses Diagnosis Plantar fascial fibromatosis documented in this encounter Care Teams Instant Print Operator Relationship Specialty Start Date End Date Delonte Gray MD PCP - General 11/13/02 10/03/06 [facility] [address] [place] [address] documented as of this encounter
--- OUTSIDE RECORDS SUMMARY | 2022-06-14 08:41 | XMS_ITS | Encounter Summary ---
:1950 Author Organization [facility] Address [address] [place] [address] Care Team Providers Name Role Phone Merissa Nelson MD Primary Care Provider Reason for Referral Specialty Diagnoses / Procedures Referred By Contact Refer red To Contact Dameon Li MD [address] [facility] [address] [place], [place] [address] Referral ID Status Reason Start Date Expiration Date Visits Requ ested Visits Authorized Reason for Visit Reason Onset Date Comments ABNORMAL, TEST RESULT 10/19/2006 Encounter Details Date Type Department Care Team Description 10/19/2006 Telephone [facility] Dameon Li MD ABNORMAL, TEST RESULT Practice [address] [place] [address] [address] [place], [place] [phone] (Wo rk) Social History Tobacco Use Types Packs/Day Years Used Date Smoking Tobacco: Former Cigarettes 0.3 23 Quit : 08/08/1988 Alcohol Use Standard Drinks/Week Comments Yes 10 (1 standard drink = 0.6 oz pure alcoh ol) Sex Assigned at Date Recorded Not on file documented as of this encounter Nursing Notes Dameon Li - 10/19/2006 8:18 AM CDT Addended by: DAMEON LI on: 10/19/2006 8:18:03 AM Modules accepted: Orders Dameon Li - 10/19/2006 8:15 AM CDT Left message to call back. documented in this encounter Plan of Treatment Upcoming Encounters Date Type Specialty Care Team Description 07/12/2022 Appointment Optometry Linda Dorsey , OD [address] [place], [place] [phone] (Wo rk) documented as of this encounter Visit Diagnoses Diagnosis Elevated PSA - Primary Elevated prostate specific antigen (PSA) documented in this encounter Care Teams Information Technology Administrator Relationship Specialty Start Date End Date Merissa Nelson MD PCP - General 10/04/06 11/23/06 [address] [place] [address] documented as of this encounter
--- OUTSIDE RECORDS SUMMARY | 2022-06-14 08:41 | XMS_ITS | Encounter Summary ---
:1950 Author Organization [facility] Address [address] [place] [address] Care Team Providers Name Role Phone Delonte Gray MD Primary Care Provider Reason for Visit Reason Comments BP CHECK,NURSE Encounter Details Date Type Department Care Team Description 05/19/2005 Office Visit [facility], Adult Av SCRE EN FOR HYPERTENSION Department [address] [place] [address] Social History Tobacco Use Types Packs/Day Years Used Date Smoking Tobacco: Former Cigarettes 0.3 23 Quit : 08/08/1988 Alcohol Use Standard Drinks/Week Comments Yes 10 (1 standard drink = 0.6 oz pure alcoh ol) Sex Assigned at Date Recorded Not on file documented as of this encounter Last Filed Vital Signs Vital Sign Reading Time Taken Comments Blood Pressure 128/74 05/19/2005 2:39 PM CDT (from Ex tended Vitals) Pulse 60 05/19/2005 2:38 PM CDT Temperature - - Respiratory Rate 16 05/19/2005 2:38 PM CDT Oxygen Saturation - - Inhaled Oxygen Concentration - - Weight - - Height - - Body Mass Index - - documented in this encounter Progress Notes 05/19/2005 2:45 PM CDT S: Tyler Muro here today for follow up blood pressure check. O: Blood pressures recorded. Additional readings taken, see extended vitals for documentation. A: Borderline readings. P: Return in 1-2 weeks for next reading. Tammi Cano LPN 05/19/2005 2:38 PM documented in this encounter Plan of Treatment Upcoming Encounters Date Type Specialty Care Team Description 07/12/2022 Appointment Optometry Dorsey, Linda E , OD [address] [place], [place] [phone] (Wo rk) documented as of this encounter Visit Diagnoses Diagnosis Screening for hypertension documented in this encounter Care Teams Paint Tester Relationship Specialty Start Date End Date Delonte Gray MD PCP - General 11/13/02 10/03/06 FAMILY [facility] [id number] [place] [address] documented as of this encounter
--- OUTSIDE RECORDS SUMMARY | 2022-06-14 08:42 | XMS_ITS ---
:1950 Author Care Team Providers Name Role Phone Ralf Oconnell Primary Care Provider Unavailable Allergies Code Code System Name Reaction Severity Status Onset NKDA ? Medications Name Status Start Date Stop Date ? ? amlodipine 5 mg tablet Active ? Not avail able Take 1 tablet every day by oral route. atorvastatin 20 mg tablet Active ? Not av ailable Take 1 tablet every day by oral route. chlorthalidone 25 mg tablet Active ? Not available Take 1 tablet every day by oral route. losartan 100 mg tablet Active ? Not avail able Take 1 tablet every day by oral route. potassium Active ? Not available spironolactone 25 mg tablet Active ? Not available 25mg 1/day Xarelto 20 mg tablet Active ? Not availab le Take 1 tablet every day by oral route. Notes: Chloro Problems Name Status Onset Date Source ? Large Prostate Active 12/08/2015 History Finding of Bladder Emptying Active 01/22/2016 Hist ory Clinical Finding Active 09/08/2016 History Clinical Finding Active 10/06/2016 History Procedure on Genitourinary System Active 11/18/2016 History Postoperative Care Active 11/18/2016 History Screening for Malignant Neoplasm of Prostate Active 01/2018 History Procedures Date Name Performed by ? 06/16/2018 Us Urine Capacity Measure Information no t available Notes: 06/16/2018 - US URINE CAPACITY MEASURE 11/11/2017 Us Urine Capacity Measure Information no t available Notes: 11/11/2017 - US URINE CAPACITY MEASURE 11/08/2017 Colonoscopy Thru Stoma Spx Information n ot available Notes: 11/08/2017 - COLONOSCOPY THRU S FÁTIMA SPX 06/01/2017 Us Urine Capacity Measure Information no t available Notes: 06/01/2017 - US URINE CAPACITY MEASURE 02/23/2017 Us Urine Capacity Measure Information no t available Notes: 02/23/2017 - US URINE CAPACITY MEASURE 11/24/2016 Us Urine Capacity Measure Information no t available Notes: 11/24/2016 - US URINE CAPACITY MEASURE 11/18/2016 Us Urine Capacity Measure Information no t available Notes: 11/18/2016 - US URINE CAPACITY MEASURE 11/09/2016 Removal of Prostate Information not avai lable Notes: 11/09/2016 - REMOVAL OF PROSTAT E 10/06/2016 Us Urine Capacity Measure Information no t available Notes: 10/06/2016 - US URINE CAPACITY MEASURE 09/24/2016 Cystoscopy Information not avai lable Notes: 09/24/2016 - CYSTOSCOPY 02/18/2016 Us Urine Capacity Measure Information no t available Notes: 02/18/2016 - US URINE CAPACITY MEASURE 01/22/2016 Irrigation of Bladder Information not av ailable Notes: 01/22/2016 - IRRIGATION OF BLAD SUELLEN 10/13/2012 Us Urine Capacity Measure Information no t available Notes: 10/13/2012 - US URINE CAPACITY MEASURE 12/04/2010 Biopsy of Prostate Information not avai lable Notes: 12/04/2010 - BIOPSY OF PROSTATE 12/04/2010 N Block Other Peripheral Information not available Notes: 12/04/2010 - N BLOCK OTHER MARY PHERAL 06/01/1984 Removal of Sperm Duct(s) Information not available Notes: 06/01/1984 - REMOVAL OF SPERM D UCT(S) ? Biopsy of Prostate Information not avai lable Notes: BIOPSY OF PROSTATE ? Prp I/oxana Init Reduc >5 Yr Information not available Notes: PRP I/OXANA INIT REDUC >5 YR ? Removal of Tonsils Information not avai lable Notes: REMOVAL OF TONSILS ? Remove Ext Hem Groups 2+ Information not available Notes: REMOVE EXT HEM GROUPS 2+ Notes: HN - Patient indicated: Removal of prostate and Prp i/oxana init reduc >5 yr are not accurate. Results Lab Results None recorded. Past Encounters 07/21/2021 Lower Urinary Tract Symptoms Due to Sergio gn Prostatic Hypertrophy; Screening for Malignant Neoplasm of Prostate Ralf Oconnell MD: [address] [place] [address], Ph. Social History Tobacco Smoking Status Former Smoker Vaccine List Vaccine Type COVID-19 (SARS-COV-2) vaccine, unspecifi ed 10/24/2020 influenza, unspecified formulation 07/09/2021 pneumococcal conjugate PCV 13 08/08/2017 Plan of Care Reminders Provider Appointments None recorded. ? ? Lab None recorded. ? ? Referral None recorded. ? ? Procedures None recorded. ? ? Surgeries None recorded. ? ? Imaging None recorded. ? ? Vitals 07/21/2021 10:35AM ESTABLISHED 15 Height Weight BMI 6 ft 1 in 250 lbs 33.0 kg/m2 07/07/2020 09:25AM ESTABLISHED 15 Height Weight BMI 6 ft 2 in 270 lbs 34.7 kg/m2
--- OUTSIDE RECORDS SUMMARY | 2022-06-14 08:42 | XMS_ITS | Encounter Summary ---
:1950 Author Organization [facility] Address [address], [place] [address] Care Team Providers Name Role Phone Tj Jon MD Primary Care Provider Encounter Details Date Type Department Care Team Description 10/01/1997 Notes/Orders Tj Jon MD [address] [place] [address] (Wo rk) Social History Tobacco Use Types Packs/Day Years Used Date Smoking Tobacco: Never Assessed Sex Assigned at Date Recorded Not on file documented as of this encounter Plan of Treatment Upcoming Encounters Date Type Specialty Care Team Description 07/12/2022 Appointment Optometry Linda Dorsey , OD [address] [place], [place] [phone] (Wo rk) documented as of this encounter Procedures Procedure Name Priority Date/Time Associated Diagnosis Comme nts LIPID PANEL, FAST > Routine 10/01/1997 9:13 AM Re sults for this 12 HOUR CUSTOMIZER procedure are i n the results section. PROSTATIC SPECIFIC Routine 10/01/1997 9:13 AM Res ults for this ANTIGEN (DIAGNOSTIC CUSTOMIZER procedur e are in F/U) the results section. UA MICRO Waiting 10/01/1997 9:13 AM Results f or this CUSTOMIZER procedure are i n the results section. UA MICRO IF Waiting 10/01/1997 9:13 AM Results f or this CUSTOMIZER procedure are i n the results section. CBC HEME PANEL Waiting 10/01/1997 9:13 AM Results for this CUSTOMIZER procedure are i n the results section. documented in this encounter Results PROSTATIC SPECIFIC ANTIGEN (10/01/1997 9:13 AM CUSTOMIZER) athologist Signature Prostatic Spec 1.4 0 - 2.5 [facility] Ag ng/ml Specimen Anatomical Collection Method Collection Time Receive d Time (Source) Location / / Volume Laterality 10/01/1997 9:13 AM 8 9:14 CUSTOMIZER AM CUSTOMIZER Tj Jon MD LAB_1 Performing Organization Address [facility] Phon e Number [facility] [employer] [phone] [phone] FASTING LIPID PANEL >12HR FAST (10/01/1997 9:13 AM CUSTOMIZER) Component Value Ref Test Analysis Performed At [facility] Range Method Time Signature Cholesterol 205 <240 [facility] mg/dl Cholesterol Result should not be interpreted without [facility] the patient's history of cardiovascular risk factors. Triglyceride 131 <300 [facility] mg/dl HDL 58 >35 [facility] mg/dl LDL, Calc. 121 mg/dl [facility] Hours Fasting 12 hours [facility] Specimen Anatomical Collection Method Collection Time Receive d Time (Source) Location / / Volume Laterality 10/01/1997 9:13 AM 8 9:14 CUSTOMIZER AM CUSTOMIZER Tj Jon MD LAB_1 Performing Organization Address [facility] Phon e Number [facility] [employer] [phone] [phone] UA MICRO (10/01/1997 9:13 AM CUSTOMIZER) [facility] Method Time Signature RBC'S 0-3 0 - 3 [facility] /hpf WBC'S 0-2 0 - 5 [facility] /hpf Epith, Occ [facility] Squamous Bact 0 [facility] Casts 0 /lpf [facility] Other Mod [facility] Amorph Phos Specimen Anatomical Collection Method Collection Time Receive d Time (Source) Location / / Volume Laterality 10/01/1997 9:13 AM 8 9:14 CUSTOMIZER AM CUSTOMIZER Tj Jon MD LAB_1 Performing Organization Address City/[facility]/ZIP Code Phon e Number [employer] [phone] [facility] [address] [place] [phone] UA MICRO IF (10/01/1997 9:13 AM CUSTOMIZER) athologist Signature Appr Yellow [facility] Appr Cloudy [facility] Sp Gr 1.019 1.005 - [facility] 1.030 Leuk 0 0 [facility] Nitr 0 0 [facility] pH 7.0 4.5 - 8.0 [facility] Prot 0 0 mg/dl [facility] Gluc 0 0 g/dl [facility] Ket 0 0 [facility] Urob 0.1-1 0.1 - 1 [facility] mg/dl Bili [address] [facility] Blood Tr 0 [facility] Specimen Anatomical Collection Method Collection Time Receive d Time (Source) Location / / Volume Laterality 10/01/1997 9:13 AM 8 9:14 CUSTOMIZER AM CUSTOMIZER Tj Jon MD LAB_1 Performing Organization Address City/[facility]/ZIP Code Phon e Number [place] [phone] [facility] [address] [place] [phone] CBC HEME PANEL (10/01/1997 9:13 AM CUSTOMIZER) athologist Signature WBC 5.1 4.2 - 10.[address] [facility] k/ul RBC 5.52 4.4 - 6.0 [facility] M/ul Hemoglobin 17.9 14 - 18 [facility] g/dl HCT 50.7 40 - 52 % [facility] MCV 92 80 - 98 fl [facility] MCH 32.4 27 - 34 pg [facility] MCHC 35.3 32 - 36 % [facility] Platelets 182 150 - 450 [facility] k/ul Specimen Anatomical Collection Method Collection Time Receive d Time (Source) Location / / Volume Laterality 10/01/1997 9:13 AM 8 9:14 CUSTOMIZER AM CUSTOMIZER Tj Jon MD LAB_1 Performing Organization Address City/[facility]/ZIP Code Phon e Number [place] [phone] [facility] [address] [phone] documented in this encounter Visit Diagnoses Not on filedocumented in this encounter Care Teams Credit Charge Authorizer Relationship Specialty Start Date End Date Tj Jon MD PCP - General 10/01/1997 11/12/02 [address] [place] [address] documented as of this encounter
--- OUTSIDE RECORDS SUMMARY | 2022-06-14 08:42 | XMS_ITS | Clinical Summary ---
:1950 Author Organization [facility] [place] [address] Care Team Providers Name Role Phone Supa Reyse MD Primary Care Provider [phone] Allergies No known active allergies Medications Medication Sig Dispensed Refills Start Date End Date Status amoxicillin (AMOXIL) Take 500 mg by 0 03/18/2017 Active 500 mg capsule mouth. 4 capsules prior to dental work atorvastatin (LIPITOR) Take 1 tablet by 90 tablet. 3 1 Active 20 mg mouth at tabletIndications: bedtime. Dyslipidemia, Hyperlipidemia, unspecified hyperlipidemia type amLODIPine (NORVASC) 10 Take 1 tablet by 90 tablet 3 1 Active mg tabletIndications: mouth once Hypertension daily. potassium chloride Take 1 tablet by 180 tablet 3 10/03/2020 Active (K-DUR) 20 mEq mouth 2 times Extended-Release daily with tabletIndications: meals. Hypokalemia rivaroxaban (Xarelto) Take 1 Tablet 90 Tablet 2 11/26/2020 Active 20 mg (20 mg) by mouth tabletIndications: once daily with Paroxysmal atrial evening meal. fibrillation (HC) losartan (COZAAR) 100 Take 1 Tablet 14 Tablet 0 11/26/2020 Active mg tabletIndications: (100 mg) by Essential hypertension mouth once daily. chlorthalidone Take 1 Tablet 90 tablet. 2 12/17/2020 Active (HYGROTON) 25 mg (25 mg) by mouth tabletIndications: HTN once daily. (hypertension) Active Problems Problem Noted Date Chronic anticoagulation 01/10/2019 Dyslipidemia 01/10/2019 Chronotropic incompetence 05/02/2018 PAF (paroxysmal atrial fibrillation) 02/15/2017 BPH with urinary obstruction 11/13/2016 Essential hypertension 11/13/2016 Typical atrial flutter PATRICIA (obstructive sleep apnea) Immunizations Name Administration Dates Next Due Influenza, High-dose Inactivated 10/10/2016 Pneumococcal Poly,23-Valent (Pneumovax) 05/14/2015 Pneumococcal conj 13-Valent (Prevnar 13) 10/09/2014 Family History Medical History Relation Name Comments Coronary artery disease No Family History Social History Tobacco Use Types Packs/Day Years Used Date Former Smoker Cigarettes 0.5 25 Quit: 1990 Smokeless Tobacco: Never Used Comments: quit 1990 Alcohol Use Standard Drinks/Week Comments Yes 0 (1 standard drink = 0.6 oz pure alcoho l) burbon 2-3 times a week Alcohol Habits Answer Date Recorded How often do you have a drink containing Not asked alcohol? How many drinks containing alcohol do you have Not asked on a typical day when you are drinking? How often do you have six or more drinks on Not asked one occasion? Comment: burbon 2-3 times a week 11/05/2016 Sex Assigned at Date Recorded Not on file Obstetrics History Last Filed Vital Signs Vital Sign Reading Time Taken Comments Blood Pressure 128/62 09/05/2020 10:35 AM TANK ERECTOR Pulse 75 09/05/2020 10:35 AM TANK ERECTOR Temperature 37 ??C (98.6 ??F) 06/26/2018 10:02 AM TANK ERECTOR Respiratory Rate 16 09/05/2020 10:35 AM TANK ERECTOR Oxygen Saturation 95% 04/20/2019 10:07 AM CDT Inhaled Oxygen Concentration - - Weight 127.1 kg (280 lb 4.8 oz) 09/05/2020 10:35 AM TANK ERECTOR Height 188 cm (6' 2.02) 09/05/2020 10:35 AM TANK ERECTOR Body Mass Index 35.97 09/05/2020 10:35 AM TANK ERECTOR Plan of Treatment Health Maintenance Due Date Last Done Comments Tdap 1959 Depression screening for age 12+ 1960 Hepatitis C screening for age 0803/24/1966 18-79 Tetanus booster 1968 Colonoscopy through age 75 1993 Zoster (shingles) series for age 0803/24/1998 50+ (1 of 2) Medicare Wellness for age 65+ 2013 COVID-19 vaccine series (3 - 12/19/2020 10/24/2020, 021 Booster for Pfizer series) BMI (ht and wt on same day) for 09/05/2021 09/05/2020, 04/08, age 18+ 01/11/2019, Additional history exists Lipids for age 45-75 11/14/2021 11/14/2016 Influenza for age 65+ 04/08/2022 10/10/2016 Pneumococcal series for age 65+ Completed 05/14/2015, 11/2014 Results Not on filefrom Last 3 Months Insurance Payer Benefit Plan / Subscriber ID Effective Dates Phone Addre ss Type Group MEDICARE PART A MEDICARE PART A [id number] 2013-Present ATTN: CLAIMS - HB USE ONLY HB ONLY [address] [place] [address] HEALTH Novogenie MEDICARE [id number] 2018-Present [address] [place] [address] Advance Directives Latest Code Status on File Code Status Date Activated Date Inactivated Comments Full Code 06/22/2018 11:06 AM 06/23/2018 12:48 PM Code Status Discussion: Not Discussed Full Code 12/13/2016 10:15 AM 12/13/2016 7:58 PM Full Code 11/09/2016 7:31 AM 11/15/2016 7:32 PM Care Teams Scrub Tech Relationship Specialty Start Date End Date Supa Reyes MD PCP - General Family Practice 11/03/[address] [place] [address]
--- OUTSIDE RECORDS SUMMARY | 2022-06-14 08:42 | XMS_ITS | Encounter Summary ---
:1950 Author Organization [facility] Address [address] [place] [address] Care Team Providers Name Role Phone Tj Jon MD Primary Care Provider Encounter Details Date Type Department Care Team Description 10/01/1997 Office Visit [facility] Tj Jon PRE VENTIVE CARE EXAM Maikol Wright MD [address] [place], [place] [address] [place], [place] [phone] Social History Tobacco Use Types Packs/Day Years Used Date Smoking Tobacco: Never Assessed Sex Assigned at Date Recorded Not on file documented as of this encounter Progress Notes Tj Jon - 10/01/1997 12:00 AM CSTS Patient is in today for screening health assessment. His past medical history is fairly unremarkable. He does not come into the doctor very often. His last physical examination with us was with Dr. Alfaro in December,. No concerns were brought up except for mild obesity. He is not a smoker having quit in l989. He takes no medications and has no drug allergies. Family history is notable for some high blood pressure but is otherwise unremarkable. He has completed the health risk assessment questionnaire the results of which are summarized on the green shingle. He clearly needs to increase his efforts on a heart healthy lifestyle with regular exercise and low fat, low cholesterol eating. No other risky behaviors or concerns are brought up today on a full review of systems. He denies chest pain, shortness of breath or any other cardiopulmonary concerns. No gastrointestinal or musculoskeletal complaints. He has a rare ache in his pudendal region in the morning when he wakes up with a partial erection but otherwise has no genitourinary concerns. He reports no signs or symptoms of prostatism or prostatitis. His labs are already pending from this morning. His immunizations are current. Age and gender appropriate counseling is up-to-date as of today. O A physical examination shows a healthy, well appearing 47-year-old male at 74 inches, weight 250 lbs. Pulse of 68 and regular. BP l30/80. Resp. rate is l7 and regular and unlabored. The HEENT exam shows the TM's to be clear bilaterally. Hearing is subjectively normal. There is no otitis media or otitis externa. The sinuses are nontender. The oral pharynx is clear. Dentition is good. He is in the midst of some dental work with his dentist including a root canal procedure. The pupils equal, round, reactive to light and accommodation, the extraocular movements are intact. The conjunctiva are not inflamed. The neck is supple without adenopathy, thyromegaly, bruit or mass. The heart tones are regular and crisp SI SII without murmurs, gallops or rubs. The lungs are clear to auscultation and percussion without rhonchi, rales or wheezes. There are no areas of consolidation. The abdomen is slightly obese but soft, nontender with no palpable organomegaly, mass or bruit. There is no inguinal hernia, adenopathy or bruit. The external genitalia is normal. There is a slight cyst on the left epididymis. The rest of the scrotal contents are normal. The rectal exam shows a normal, symmetric, non-nodular age appropriate organ. The stool is hem negative. The extremities are without clubbing, cyanosis, or edema. The peripheral pulses are intact. The neurologic is nonfocal. Mental status is normal. Skin shows numerous skin tags and several old scars but no worrisome lesions. A Active, healthy, 47-year-old male with no ongoing concerns except for need to intensify exercise regimen and low fat, low cholesterol diet. P l. Labs are pending. 2. Flex sig. 3. Immunizations are current. 4. Counseling is current. 5. Next health assessment in two to three yrs. cc: IX INSPECTOR documented in this encounter Plan of Treatment Upcoming Encounters Date Type Specialty Care Team Description 07/12/2022 Appointment Optometry Linda Dorsey , OD [address] [place], [place] [phone] (Wo rk) documented as of this encounter Visit Diagnoses Diagnosis Routine general medical examination at [facility] Routine general medical examination at [facility] facility documented in this encounter Care Teams Pocket Setter Lockstitch Relationship Specialty Start Date End Date Tj Jon MD PCP - General 10/01/1997 11/12/02 [address] [place] [address] documented as of this encounter
--- OUTSIDE RECORDS SUMMARY | 2022-06-14 08:42 | XMS_ITS | Encounter Summary ---
:1950 Author Organization [facility] Address [address] [place] [address] Care Team Providers Name Role Phone Tj Jon MD Primary Care Provider Encounter Details Date Type Department Care Team Description 11/06/1997 Office Visit [facility] Tj Jon SCR ZAKIA Wright MD [facility] [address] [facility] [address] [place], [place] [address] [place], [place] [phone] Social History Tobacco Use Types Packs/Day Years Used Date Smoking Tobacco: Never Assessed Sex Assigned at Date Recorded Not on file documented as of this encounter Progress Notes Tj Jon - 11/06/1997 12:00 AM CSTS: Mr. Muro is in today for screening flex sig. This is his first study. The nature of the procedure was discussed in full detail. Risks and benefits were addressed. An unremarkable rectal exam was performed. The Olympic flex sig was easily advanced to 60 cm under direct visualization. The scope was withdrawn and the bowel wall was viewed in a circumferential manner from 60 cm to the anus. No abnormalities were seen. A: Negative flex sig. P: Repeat in five years or as per HP guidelines. cc: ILE PROCESSING TECHNOLOGIST documented in this encounter Plan of Treatment Upcoming Encounters Date Type Specialty Care Team Description 07/12/2022 Appointment Optometry Linda Dorsey , OD [address] [place], [place] [phone] (Wo rk) documented as of this encounter Visit Diagnoses Diagnosis Special screening for malignant neoplasm s of other sites documented in this encounter Care Teams Tissue Specialist Relationship Specialty Start Date End Date Tj Jon MD PCP - General 10/01/1997 11/12/02 [address] [place] [address] documented as of this encounter
--- OUTSIDE RECORDS SUMMARY | 2022-06-14 08:42 | XMS_ITS | Encounter Summary ---
:1950 Author Organization [facility] Address [address], [place] [address] Care Team Providers Name Role Phone Tj Jon MD Primary Care Provider Encounter Details Date Type Department Care Team Description 06/07/1997 Office Visit [facility] Delonte Robbins [place]; [address] [facility] [place], [place] [address] [address] [facility] [phone] [place] [address] Social History Tobacco Use Types Packs/Day Years Used Date Smoking Tobacco: Never Assessed Sex Assigned at Date Recorded Not on file documented as of this encounter Plan of Treatment Upcoming Encounters Date Type Specialty Care Team Description 07/12/2022 Appointment Optometry Linda Dorsey , OD [address] [place], [place] [phone] (Wo rk) documented as of this encounter Visit Diagnoses Diagnosis Myopia Presbyopia documented in this encounter Care Teams Editorial Project Manager Relationship Specialty Start Date End Date Tj Jon MD PCP - General 10/01/1997 11/12/02 [address] [place] [address] documented as of this encounter
--- OUTSIDE RECORDS SUMMARY | 2022-06-14 08:42 | XMS_ITS | Encounter Summary ---
:1950 Author Organization [facility] Address [address], [place] [address] Care Team Providers Name Role Phone Merissa Nelson MD Primary Care Provider Encounter Details Date Type Department Care Team Description 04/06/1995 Orders Only Marva Bazzi MD Social History Tobacco Use Types Packs/Day Years Used Date Smoking Tobacco: Never Assessed Sex Assigned at Date Recorded Not on file documented as of this encounter Plan of Treatment Upcoming Encounters Date Type Specialty Care Team Description 07/12/2022 Appointment Optometry Linda Dorsey , OD [address] [place], [place] [phone] (Wo rk) documented as of this encounter Visit Diagnoses Not on filedocumented in this encounter Care Teams Field Spec Relationship Specialty Start Date End Date Merissa Nelson MD PCP - General 10/23/08 [address] [place] [address] documented as of this encounter
[2022-06-14 14:07] LABS: Chloride* 98 mmol/L (96-114)
[2022-06-14 14:08] LABS: Albumin* 4.4 g/dL (3.3-5.0); Sodium* 134 mmol/L (135-149)
[2022-06-14 14:11] LABS: Alkaline Phosphatase* 55 U/L (40-150); Aspartate Amino Transferase* 33 U/L (12-35); Bilirubin Total* 1.2 mg/dL (0.1-1.5); Blood Urea Nitrogen* 23 mg/dL (7-30); Carbon Dioxide* 28 mmol/L (20-32); Cholesterol* 143 mg/dL (90-199); Creatinine* 1.1 mg/dL (0.5-1.5); Estimated Glomerular Filt Rate 70 ml/min; Glucose* 104 mg/dL (60-115); Total Protein* 6.7 g/dL (6.0-8.3); Triglycerides* 62 mg/dL (40-149)
[2022-06-14 14:12] LABS: Alanine Aminotransferase* 26 U/L (4-50); Calcium* 9.1 mg/dL (8.4-10.6); HDL Cholesterol* 79 mg/dL (>=40); LDL Cholesterol Calculated 52 mg/dL (<100)
[2022-06-14 14:42] LABS: PSA Screen* 2.13 ng/mL (0.10-4.00)
== END 2022-06-14 10:14 | disposition home or self-care (01) ==
PROVIDERS: PCP Physician Assistant Medical; Visit Provider Physician Assistant Medical
DX: Z00.00 Encounter for general adult medical examination without abnormal findings (principal); E78.5 Hyperlipidemia, unspecified; Z90.49 Acquired absence of other specified parts of digestive tract; I10 Essential (primary) hypertension; R73.03 Prediabetes; Z12.5 Encounter for screening for malignant neoplasm of prostate
CPT/HCPCS: 80053; 80061; 84153

== ENCOUNTER 2025-02-14 08:04 | Outpatient (CLI) | payer OTHER, SELFPAY | END 2025-02-14 08:05 | disposition home or self-care (01) | LOC: NFLDREF 02-18 15:28 | PROVIDERS: PCP Physician Assistant Medical; Referring Provider Physician Assistant Medical; Visit Provider Physician Assistant Medical | DX: I10 Essential (primary) hypertension (principal); E78.2 Mixed hyperlipidemia; R73.03 Prediabetes; I48.91 Unspecified atrial fibrillation; R97.20 Elevated prostate specific antigen [PSA]; E66.9 Obesity, unspecified; Z12.5 Encounter for screening for malignant neoplasm of prostate | CPT/HCPCS: 80053; 80061; 84443; G0103 ==

== ENCOUNTER 2025-03-04 08:40 | Outpatient (CLI) | payer OTHER, SELFPAY ==
--- NOTE | 2025-03-04 12:04 | P.ANES_ITS ---
Anesthesia Charges Start Date/Time Anesthesia Start Date: 03/04/25 Anesthesia Start Time: 11:15 Stop Date/Time Anesthesia Stop Date: 03/04/25 Anesthesia Stop Time: 11:57 Summary Extremes of Age - Over 70 or under 1: SENIOR LIBRARIAN Coding CPT Codes CPT Codes: ABRIL LWR INTST NDSC NOS - 74228 ([id number]) P2 - PATIENT W/MILD SYST DISEASE, QZ - SENIOR LIBRARIAN SVC W/O GRAIN DRIER BY Additional Codes: Summary - Extremes of Age - Over 70 or under 1: SENIOR LIBRARIAN ([id number])
--- NOTE | 2025-03-04 12:04 | W.ANESCHARGE ---
Anesthesia Charges Start Date/Time Anesthesia Start Date: 03/04/25 Anesthesia Start Time: 11:15 Stop Date/Time Anesthesia Stop Date: 03/04/25 Anesthesia Stop Time: 11:57 Summary Extremes of Age - Over 70 or under 1: TALENT SCOUT Coding CPT Codes CPT Codes: ABRIL LWR INTST NDSC NOS - 33304 ([id number]) P2 - PATIENT W/MILD SYST DISEASE, QZ - TALENT SCOUT SVC W/O MEDICAL IMAGING DIRECTOR BY Additional Codes: Summary - Extremes of Age - Over 70 or under 1: TALENT SCOUT ([id number])
== END 2025-03-04 08:41 | disposition home or self-care (01) ==
LOC: OP CLINIC 08:41
PROVIDERS: PCP Physician Assistant Medical; Visit Provider Surgery
DX: Z12.11 Encounter for screening for malignant neoplasm of colon (principal); Z86.0100 Personal history of colon polyps, unspecified; D12.3 Benign neoplasm of transverse colon; K57.30 Diverticulosis of large intestine without perforation or abscess without bleeding
CPT/HCPCS: 00811; 45385; 88305; 99100; A9270; J2704